=== PATIENT | female | born 1960 | race African-American/Black ===

== ENCOUNTER 2022-07-21 11:31 | Outpatient (CLI) | payer OTHER, SELFPAY ==
[2022-07-21 11:58] LABS: Hematocrit 33.3 % (37.0-47.0); Hemoglobin 9.9 g/dL (12.0-15.0); Mean Corpuscular HGB Conc 29.7 g/dl (32-36); Mean Corpuscular Hemoglobin 21.8 pg (26-34); Mean Corpuscular Volume 73.2 fl (80-100); Mean Platelet Volume 10.8 fl (7.4-10.4); Platelet Count Result 294 k/mm3 (150-375); Red Blood Count 4.55 M/mm3 (4.2-5.4); Red Cell Distribution Width 14.6 % (11.5-14.5); White Blood Count 8.5 K/mm3 (4.5-10.0)
[2022-07-21 12:08] LABS: Alanine Aminotransferase 16 U/L (6-35); Albumin Level 4.4 g/dL (3.5-5.1); Alkaline Phosphatase 90 U/L (38-126); Anion Gap 7 mmol/L (8-16); Aspartate Amino Transferase 20 U/L (14-36); Bilirubin,Total 0.6 mg/dL (0.2-1.3); Blood Urea Nitrogen 20 mg/dL (7-17); Calcium 9.1 mg/dL (8.4-10.2); Carbon Dioxide 31 mmol/L (22-30); Chloride 101 mmol/L (98-107); Cholesterol 149 mg/dL (0-200); Estimated Glomerular Filt Rate 51; Glucose 92 mg/dL (65-110); HDL Direct 26 mg/dL; Potassium 3.7 mmol/L (3.4-5.0); Sodium 139 mmol/L (137-145); Triglycerides 86 mg/dL (<150)
[2022-07-21 12:19] LABS: LDL Cholesterol Direct 85 mg/dL
== END 2022-07-21 11:32 | disposition home or self-care (01) ==
DX: Z00.00 Encounter for general adult medical examination without abnormal findings (principal); I10 Essential (primary) hypertension
CPT/HCPCS: 36415; 80053; 80061; 85027

== ENCOUNTER 2022-11-25 14:45 | Outpatient (RCR) | payer OTHER, SELFPAY ==
--- NOTE | 2022-11-12 16:50 | OPREHPOC ---
Outpatient Therapy Plan of Care This is a Multidisciplinary Plan of Care that may contain components documented by all disciplines (PT, OT, and ST.) PT Problem 1 PT Problem #1 Knowledge Deficit PT Goal 1 Goal Independent with HEP Target Visit 3 PT Problem 2 PT Problem #2 Pain PT Goal 1 Goal Pain at worst 1/10 Target Visit 3 PT Problem 3 PT Problem #3 Impaired Strength PT Goal 1 Goal DUNCAN hips 5/5 Target Visit 3
--- NOTE | 2022-11-12 16:50 | PTOPEVAL1 ---
Assessment and note entered by Jonathan Busch, PT Evaluation Information Assessment Status Evaluation Diagnosis Pain in L knee Onset September 2022 Subjective Information Patient reports she was at a alliance party in September and started having issues bending the knee and unable to get out of the chair without help. was unable to bend her knee to get into her car. She saw Dr. Sung and received an injection. Knee is feeling a lot better now and she has started riding a bike again to stay more active. Reported Pain Level Pain Score 2: Self Report Assessment PT Clinical Summary Sarah is a 62 year old female coming into the clinic with a diagnosis of L knee pain. The pain and range of motion have improved with injections from the ortho doctor. Patient still has some slight weakness, Was given a HEP and will have her come back in a couple weeks to see how she is feeling. Hopefully discharged after. Plan of Care Interventions Electrical Stimulation,Gait Training,Hot Pack/Cold Pack,Manual Therapy,Neuro Re-education,Patient/ Caregiver Education,Therapeutic Activities, Therapeutic Exercise,Ultrasound Other Interventions cupping, taping, IASTM PT Services Indicated Yes Treatment Frequency and 0-1x/wk for 4 weeks Duration These treatments will address the objective and functional deficits as defined above. The patient will be advanced safely and appropriately in order for the patient to progress towards his/her prior level of function. Additional exercises will be introduced and as well as a comprehensive home exercise program upon discharge, if needed, ?to ensure carryover of functional gains achieved in the clinic. This treatment plan has been reviewed and agreement upon by the patient.
--- NOTE | 2022-11-25 15:23 | PTOPDC ---
Assessment and note entered by Jonathan Busch, PT Evaluation Information Assessment Status Discharge Diagnosis Pain in L knee Onset September 2022 Subjective Information Patient reports the knee still feels good after the injection. It is a little upset, but she also built a deck this last weekend. She has been doing her exercises and riding her bike without any incidents. Reported Pain Level Pain Score 3: Self Report Additional Pain Score Comments was no pain, but a little tenders after going up and down the stairs on the deck a bunch and crawling under the deck to shore up the support. Assessment PT Clinical Summary Sarah is a 62 year old female coming into the clinic with a diagnosis of L knee pain. She has met her strength goals and reports the knees pain is under better control and tolerable. Patient okay for discharged from physical therapy. Plan of Care PT Services Indicated No
== END 2022-11-26 08:31 | disposition home or self-care (01) ==
LOC: ANHPT 14:45
PROVIDERS: Visit Provider Orthopaedic Surgery
DX: M25.562 Pain in left knee (principal); G89.29 Other chronic pain
CPT/HCPCS: 97110; 97161

== ENCOUNTER 2023-06-10 14:37 | Outpatient (CLI) | payer OTHER, SELFPAY ==
[2023-06-10 15:23] LABS: Basophils Percent Auto 0.4 % (0.2-1.2); Eosinophils Absolute Auto 0.4 K/mm3 (0-0.3); Eosinophils Percent Auto 4.7 % (0-4.4); Hematocrit 35.7 % (37.0-47.0); Hemoglobin 10.4 g/dL (12.0-15.0); Immature Granulocyte Absolute 0.03 K/mm3 (0.00-0.031); Immature Granulocyte Percent A 0.4 % (0-0.5); Lymphocytes Absolute Auto 1.95 K/mm3 (0.9-3.2); Lymphocytes Percent Auto 23.4 % (18.3-44.2); Mean Corpuscular HGB Conc 29.1 g/dl (32-36); Mean Corpuscular Hemoglobin 21.6 pg (26-34); Mean Corpuscular Volume 74.2 fl (80-100); Mean Platelet Volume 10.5 fl (7.4-10.4); Monocytes Absolute Auto 0.6 K/mm3 (0.1-0.6); Monocytes Percent Auto 7.3 % (2.6-8.5); Neutrophils Absolute Auto 5.3 K/mm3 (1.3-6.7); Neutrophils Percent Auto 63.8 % (45.5-73.1); Platelet Count Result 255 k/mm3 (150-375); Red Blood Count 4.81 M/mm3 (4.2-5.4); Red Cell Distribution Width 14.6 % (11.5-14.5); White Blood Count 8.3 K/mm3 (4.5-10.0)
[2023-06-10 15:32] LABS: Anion Gap 7 mmol/L (8-16); Blood Urea Nitrogen 18 mg/dL (7-17); Calcium 9.3 mg/dL (8.4-10.2); Carbon Dioxide 32 mmol/L (22-30); Chloride 102 mmol/L (98-107); Estimated Glomerular Filt Rate > 60; Glucose 101 mg/dL (65-110); Potassium 3.5 mmol/L (3.4-5.0); Sodium 141 mmol/L (137-145)
[2023-06-10 16:17] LABS: Hypochromasia 1+ (NORMAL); Platelet Estimate Adequate (Adequate); Schistocytes None Seen (NORMAL)
[2023-06-10 16:18] LABS: Anisocytosis 1+ (NORMAL)
[2023-06-10 20:02] LABS: Iron 39 ug/dL (37-170)
[2023-06-10 20:11] LABS: Percent Iron Saturation 14 % (20-50)
== END 2023-06-10 14:38 | disposition home or self-care (01) ==
LOC: ANHLAB 14:45
DX: N95.0 Postmenopausal bleeding (principal); R60.0 Localized edema; I10 Essential (primary) hypertension; R94.31 Abnormal electrocardiogram [ECG] [EKG]; Z82.49 Family history of ischemic heart disease and other diseases of the circulatory system
CPT/HCPCS: 36415; 80048; 83540; 83550; 85025

== ENCOUNTER 2025-03-13 15:36 | Outpatient (CLI) | payer OTHER, SELFPAY ==
[2025-03-13 16:54] LABS: Alanine Aminotransferase 15 U/L (6-35); Albumin Level 4.3 g/dL (3.5-5.1); Alkaline Phosphatase 78 U/L (38-126); Anion Gap 8 mmol/L (4-12); Aspartate Amino Transferase 33 U/L (14-36); Bilirubin,Total 0.8 mg/dL (0.2-1.3); Blood Urea Nitrogen 25 mg/dL (7-17); Calcium 9.3 mg/dL (8.4-10.2); Carbon Dioxide 30 mmol/L (22-30); Chloride 99 mmol/L (98-107); Cholesterol 161 mg/dL (0-200); Estimated Glomerular Filt Rate 47; Glucose 101 mg/dL (65-110); HDL Direct 28 mg/dL; Potassium 3.6 mmol/L (3.4-5.0); Sodium 137 mmol/L (137-145); Total Protein 8.3 g/dL (6.3-8.2); Triglycerides 183 mg/dL (<150)
== END 2025-03-13 15:37 | disposition home or self-care (01) ==
PROVIDERS: PCP Family Medicine
DX: R07.2 Precordial pain (principal); I10 Essential (primary) hypertension
CPT/HCPCS: 36415; 80053; 80061

== ENCOUNTER 2025-03-14 15:09 | Outpatient (CLI) | payer OTHER, SELFPAY ==
--- NOTE | ~2025-03-14 | US_ITS ---
EXAMINATION: US pelvic complete w TV DATE: 03/14/2025 15:49 INDICATION: Postmenopausal bleeding. TECHNIQUE: Multiple transabdominal and transvaginal sonographic images of the pelvis were obtained. COMPARISON: None. FINDINGS: TRANSABDOMINAL ULTRASOUND: The uterus measures 12.2 x 7.9 x 9.7 cm. There is no free fluid in the pelvis. TRANSVAGINAL ULTRASOUND: The endometrial complex is not identified. There is a 3.5 cm subserosal fibroid. There is a 5.8 cm submucosal fibroid. There is a 4.6 cm subserosal fibroid. The right ovary measures 2.7 x 1.0 x 2.6 cm. The left ovary is not visualized. IMPRESSION: 1. Uterine fibroids. 2. Endometrial complex not visualized. Reviewed, dictated and finalized at location E.
== END 2025-03-14 15:10 | disposition home or self-care (01) ==
PROVIDERS: PCP Internal Medicine; Visit Provider Nurse Practitioner Obstetrics & Gynecology
DX: D25.2 Subserosal leiomyoma of uterus (principal); N85.01 Benign endometrial hyperplasia; N95.0 Postmenopausal bleeding
CPT/HCPCS: 76830; 76856

== ENCOUNTER 2025-03-20 10:35 | Outpatient (CLI) | payer OTHER, SELFPAY ==
--- NOTE | 2025-03-20 | ECHO_ITS ---
Patient Info Name: Sarah Calvillo Age: 64 years : 1960 Gender: Female Ht: 62 in Wt: 190 lbs BSA: 1.98 m2 HR: 83 bpm BP: 154 / 103 mmHg Technical Quality: Good Exam Date: 03/20/2025 11:05 AM Patient Status: O Admit Date: 03/20/2025 Exam Type: CA echo doppler color flow Complete two-dimensional, color flow and Doppler transthoracic echocardiogram is performed. 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 Complete two-dimensional, color flow and Doppler transthoracic echocardiogram is performed. 2. Left ventricular systolic function is normal, estimated at 60-65. 3. There is moderately increased left ventricular wall thickness. 4. The left ventricular diastolic function is normal. 5. There is mild pulmonic regurgitation. Left Ventricle Left ventricular chamber dimension is normal. Left ventricular systolic function is normal, estimated at 60-65. There is moderately increased left ventricular wall thickness. Left ventricular septal wall motion is normal. The left ventricular diastolic function is normal. Right Ventricle Right ventricular chamber dimension is normal. Right ventricular systolic function is normal. Left Atria Left atrial chamber dimension is normal. Right Atria Right atrial chamber dimension is normal. Aortic Valve The aortic valve is trileaflet. There is no aortic valve sclerosis. There is no aortic valve stenosis. There is no aortic valve regurgitation. Pulmonic Valve The pulmonic valve is normal. There is no pulmonic valve stenosis. There is mild pulmonic regurgitation. Mitral Valve The mitral valve has normal leaflets. There is no mitral valve stenosis. There is no mitral valve regurgitation. Tricuspid Valve The tricuspid valve leaflets are normal. There is no significant tricuspid valve stenosis. There is no tricuspid valve regurgitation. Pericardium/Pleural The pericardium appears normal. There is trivial pericardial effusion. Inferior Vena Cava Normal inferior vena cava with >50% collapse upon inspiration consistent with normal right atrial pressure, 5 mmHg. Aorta The aortic root size at the sinus of Valsalva is mildly dilated. The prox ascending aorta size is normal. Left Ventricular Outflow Tract Name Value Normal LVOT 2D LVOT Diameter 2.2 cm LVOT Doppler LVOT Peak Velocity 123 cm/s LVOT Peak Gradient 6 mmHg LVOT Mean Gradient 3 mmHg LVOT VTI 22 cm LVOT VTI/AV VTI Ratio 0.8 LVOT Stroke Volume 80 ml LVOT CO 5.8 l/min LVOT CI 2.9 l/min/m2 Pulmonic Valve Name Value Normal PV Doppler PV Peak Velocity 112 cm/s PV Peak Gradient 5 mmHg PV Mean Gradient 2 mmHg PV Regurgitation Doppler CT Peak End Diastolic Velocity 120 cm/s Mitral Valve Name Value Normal MV Doppler MV Peak Gradient 3 mmHg MV Mean Gradient 1 mmHg MV Area (Cont Eq VTI) 4.5 cm2 MV Diastolic Function MV E Peak Velocity 66 cm/s MV A Peak Velocity 72 cm/s MV E/A 0.9 MV Decel Time (PW) 197 ms MV Annular TDI MV E/e' (Septal) 10.9 MV E/e' (Lateral) 5.1 MV E/e' (Average) 8.0 Tricuspid Valve Name Value Normal Estimated PAP/RSVP RA Pressure 5 mmHg <=5 TV Annular TDI TV Lateral Hannah s' Velocity 13.3 cm/s >=9.5 Aortic Valve Name Value Normal AV Doppler AV Peak Velocity 135 cm/s AV Peak Gradient 7 mmHg AV Mean Gradient 4 mmHg AV VTI 26 cm AV Area (Cont Eq VTI) 3.1 cm2 >=3.0 AV Area (Cont Eq Douglas) 3.3 cm2 AV DI (Douglas) 0.91 AV Regurgitation 2D LVOT Area 3.7 cm2 Ventricles Name Value Normal LV Dimensions 2D/MM IVS Diastolic Thickness (2D) 1.0 cm 0.6-1.0 LVID Diastole (2D) 5.0 cm 3.8-5.2 LVIW Diastolic Thickness (2D) 0.9 cm 0.6-0.9 LVID Systole (2D) 3.6 cm 2.2-3.5 LVOT Diameter 2.2 cm LV Mass (2D Cubed) 163.35 g 67.00-162.00 LV Mass Index (2D Cubed) 82 g/m2 43-95 Relative Wall Thickness (2D) 0.34 <=0.42 LV Fractional Shortening/Ejection Fraction 2D/MM LV Fractional Shortening (2D) 28 % 27-45 LV EF (2D Teichholz) 54 % LV Diastolic Volume (4C MOD) 66 ml LV EF (4C MOD) 57 % LV Diastolic Volume (2C MOD) 68 ml LV EF (2C MOD) 62 % LV Diastolic Volume (BP MOD) 67 ml 46-106 LV Diastolic Volume Index (BP MOD) 34 ml/m2 29-61 LV Systolic Volume (BP MOD) 27 ml 14-42 LV Systolic Volume Index (BP MOD) 14 ml/m2 8-24 LV EF (BP MOD) 60 % 54-74 LV Diastolic Length (4C) 7.4 cm LV Systolic Length (4C) 6.4 cm LV Stroke Volume (4C MOD) 37 ml Atria Name Value Normal LA Dimensions LA Volume (4C A-L) 46 ml LA Volume (BP A-L) 52 ml RA Dimensions RA Systolic Major [place] Length (4C) 5.6 cm 2.2-2.8 RA Area (4C) 15.0 cm2 <=18.0 Report Signatures
--- OUTSIDE RECORDS SUMMARY | 2025-03-20 12:21 | XMS_ITS | Patient Health Record ---
Author Organization [facility] Address [address] [place], [place] [id number] Care Team Providers Care Supervisor Order Takers Name Role Phone ALETA CLINTON Unavailable [phone] Javon Rivera Unavailable Unavailable Reason For Referral No Information Plan Of Treatment No Information Insurance Providers Payer Name Payer Address Payer Phone Subscriber Number Group Number Insured Name Patient Relationship to Insured Coverage Start Date Coverage End Date [employer] [address] [place] [phone] [id number] CHASITY [id number] Self - patient is the insured
== END 2025-03-20 10:36 | disposition home or self-care (01) ==
LOC: ANHCARD 10:36
PROVIDERS: PCP Internal Medicine
DX: I37.1 Nonrheumatic pulmonary valve insufficiency (principal); I10 Essential (primary) hypertension; R60.9 Edema, unspecified
CPT/HCPCS: 93306

== ENCOUNTER 2025-03-28 01:29 | Day surgery (SDC) | payer OTHER, SELFPAY ==
--- NOTE | 2025-03-23 09:14 | SUR.PREOP ---
[facility] has started construction of its new state of the art ER which will open Spring 2026. With this, we anticipate parking may be a challenge for some our surgical patients and families. Parking spaces are limited but are available for all Surgical, obstetrics, and ER patients sharing this lot. If you arrive and find you are having a hard time finding a parking space, please note that we understand the challenges, please drive around the hospital and park near Hospital Entrance 1. When you enter this entrance, you can ask a volunteer to direct or take you back to the surgical waiting area to check in. We appreciate everyone?s understanding of these expected challenges while we build for your future. Report to the Outpatient Waiting Room, entrance under the green pavilion located off [address], at time _1030AM__ on date _03/28/25__. Planned Procedure Time: 1230PM__.? Time changes happen often and if your time is changed the preop area will call you the afternoon before. - You and your visitor will be asked to self-screen and do not enter if you have any COVID symptoms. Please call surgeon if you need to reschedule. - A mask is optional within the hospital at this time. Patients may have clear liquids (water, carbonated beverages, clear teas, apple juice) until 3 hours prior to surgery with a maximum of 20 ounces. - No food from midnight until time of surgery and no smoking, or chewing tobacco (or any form of nicotine). No chewing gum, candy or mints. Take only the following medications with a SIP of water on the morning of surgery: _None DO NOT STOP ANY OF YOUR OTHER PRESCRIPTION MEDICATIONS PRIOR TO SURGERY EXCEPT THE FOLLOWING Hold all vitamins and supplements for 3 days per anesthesiologist. Medications to discontinue per physician __Pt is to call the provider for directions on diclofenac potassium__ Date to take last dose of Multivitamin___03/24/25 Please no make-up, nail bahraini, hairspray, perfume, deodorant, or body powder the day of surgery.? No jewelry (including any body piercings) or valuables the day of surgery, leave them at home.? Please take a shower or bath the night before, or the morning of, surgery with an antibacterial soap.? Wear comfortable, loose fitting clothing.? - Jewelry must be removed prior to entering the operating room.? Rings and piercings that are not removed may be cut off. - The hospital will not accept responsibility for valuables.? - Please leave all valuables, including medications, at home the day of surgery. If you are going home after surgery, a licensed van driver must drive you home.? - NO public transportation without another adult if you receive anesthesia. - We recommend that an adult stay with you for 24 hours following discharge. - We also recommend that you do not drive, make important decision, drink alcoholic beverages, or take any drugs that were not prescribed by your health care provider for at least 24 hours after your discharge time. Follow any additional instructions given to you from your surgeon. Telephone instructions given to __Sarah___and asked if any additional questions and then verbalized understanding. Patient advised to call surgeon office or pre surgery nurse liaison [phone] if any additional questions.
[2025-03-23 09:20] VITALS: BMI 34.7
--- OUTSIDE RECORDS SUMMARY | 2025-03-28 01:34 | XMS_ITS | Data Portability ---
Author Organization [facility] [employer] Address [address] [address] Care Team Providers Care Driver/Sales Workers Name Role Phone [facility] (CARDIOLOGY) Cardio logist Assessment Encounter Date Assessment Date Assessment LastModified by Organization Details LastModified Time 02/28/2024 02/28/2024 Recommends healthy nutrition, including a diet rich in fruits and vegetables, minimizing simple carbohydrates, salt, and saturated fats. Encouraged regular cardiovascular exercise such as walking at least 30 minutes daily, 5 times per week. Not available 02/28/2024 16:20:31 01/11/2025 01/11/2025 Recommends healthy nutrition, including a diet rich in fruits and vegetables, minimizing simple carbohydrates, salt, and saturated fats. Encouraged regular cardiovascular exercise such as walking at least 30 minutes daily, 5 times per week. Not available 01/11/2025 16:55:17 Plan of Treatment Reminders Order Date Submit Date Provider Last Modified By Organization Details Last Modified Time Details Appointments ESTABLISH ED PATIENT 15 2024 02:15P Meek Nava MD Not available Not available Not available Lab FSH (follicle -stimulat ing hormone), serum 2024 025 [facility], [address] [place], [address], 01/15/2025 13:15:15 PTH (parathyr oid hormone), intact, serum or plasma 2024 025 [facility], [address] [place] [address], [address], 01/15/2025 13:21:15 phosphoru s, serum or plasma 2024 025 [facility], [address] [place] [address], [address], 01/15/2025 13:25:21 vitamin D, 25-hydrox y, total, serum 2024 025 [facility], [address] [place] [address], [address], 01/15/2025 13:21:16 retic count, blood 2024 025 [facility], [address] [place] [address], [address], 01/15/2025 13:23:32 iron + TIBC + ferritin, serum 2024 025 [facility], [address] [place] [address], [address], 01/15/2025 19:22:22 fecal occult blood, immunoass ay, stool 2024 025 [facility], [address] [place] [address], [address], 01/11/2025 17:12:09 CBC w/ auto diff 2024 025 [facility], [address] [place] [address], [address], 01/15/2025 13:42:47 TSH + free T4, serum [address] Outpatient Lab, [address] [place], [address], 01/15/2025 19:22:22 T3, free, serum or plasma 2024 025 [facility], [address] [place], [address], 01/15/2025 18:07:24 microalbu min/creat inine, mass ratio, urine [address] Outpatient Lab, [address] [place], [address], 01/15/2025 19:22:21 retic count, blood 2023 024 [facility] (Lab), [address] [facility], [place], [address], 03/11/2024 07:37:51 iron + TIBC + ferritin, serum 2023 024 [facility] (Lab), [address] [facility], [place], [address], 03/11/2024 07:37:50 fecal occult blood, immunoass ay, stool 2023 024 [facility] (Lab), [address] [facility], [place], [address], 02/28/2024 16:34:05 CBC w/ auto diff 2023 024 [facility] (Lab), [address] [facility], [place], [address], 02/15/2024 14:21:42 vitamin B12 + folate, serum or blood 2023 [facility] (Lab), [address], [place], [address], 02/15/2024 14:21:43 microalbu min/creat inine, mass ratio, urine 2023 [facility] (Lab), [address], [place], [address], 02/15/2024 14:21:39 HIV 1 + 2, meaningfu l use set 2023 [facility] (Lab), [address], [place], [address], 02/01/2024 11:04:21 CMP, serum or plasma 2023 024 [facility] (Lab), [address], [place], [address], 02/15/2024 14:21:41 TSH + free T4, serum 2023 024 [facility] (Lab), [address], [place], [address], 02/01/2024 11:05:45 T3, free, serum or plasma 2023 024 [facility] (Lab), [address], [place], [address], 02/15/2024 14:21:44 hepatitis C virus Ab, serum 2023 024 [facility] (Lab), [address], [place], [address], 02/15/2024 14:21:43 Referral gynecolog ist referral 2024 025 reji Gaitan MD, [address] [facility], [place], [address], 02/08/2025 08:08:52 gynecolog ist referral 2023 024 reji Gaitan MD, [address] [facility], [place], [address], 02/28/2024 16:33:54 gynecolog ist referral 2023 024 reji Gaitan MD, [address] [facility], [place], [address], 02/28/2024 08:27:08 Procedures None recorded. Surgeries None recorded. Imaging XR, hip, unilatera l, 2 or 3 view 2024 025 [email or web address] [facility] Central Scheduling, [address] [facility] [address], [place], [address], 01/22/2025 08:11:05 MAMMO, screening , digital, bilateral [address] [facility] Central Scheduling, [address] [facility], [place], [address], 03/06/2024 08:11:18 MAMMO, screening , digital, bilateral [address] [facility] Central Scheduling, [address] [facility] [address], [place], [address], 02/08/2024 13:09:17 bone density 2023 024 [email or web address] [facility] Central Scheduling, [address] [facility], [place], [address], 02/14/2024 14:04:48 MAMMO, screening , digital, bilateral 2023 024 [facility], [address] [facility], [place], [address], 02/15/2024 18:27:05 Medication Orders None recorded. Patient TargetsNo targets recorded. Patient Instructions Encounter Date Encounter Id Patient Instructions Last Modified By Organization Details Last Modified Time 01/31/2024 [id number] advised to lose weight Not available 01/31/2024 15:58:19 02/28/2024 [id number] advised to lose weight Not available 02/28/2024 16:32:32 01/11/2025 [id number] advised to lose weight Not available 01/11/2025 17:10:45 Reason for Referral [employer] Referral for Gy necologic examination Referring Physician: Javier Nava, Internal Medicine, Encounter Date: 01/31/2024 [employer] Referral for Gy necologic examination Referring Physician: Javier Nava, Internal Medicine, Encounter Date: 02/28/2024 [employer] Referral for Ab normal vaginal bleeding Referring Physician: Javier Nava Internal Medicine, Encounter Date: 01/11/2025 Results Created Date Observation Date Name Description Value Unit Range Abnormal Flag Note LastModifiedBy Organization Detail LastModifiedTime 12/31/1912/31/2023 Lipid 1996 panel - Serum or Plasm a cholesterol [mass/volume ] in serum or plasma 140 text: <200 mg/dL Not Available Not Available 12/28/2024 22:08:41 12/31/1912/31/2023 Lipid 1996 panel - Serum or Plasm a triglyceride [mass/volume ] in serum or plasma 55 text: <150 mg/dL Not Available Not Available 12/28/2024 22:08:41 12/31/19 24 12/31/2023 Lipid 1996 panel - Serum or Plasm a cholesterol in HDL [mass/volume ] in serum or plasma 35 text: >40.0 mg/dL low Not Available Not Available 12/28/2024 22:08:41 12/31/19 24 12/31/2023 Lipid 1996 panel - Serum or Plasm a cholesterol in LDL [mass/volume ] in serum or plasma by calculation 94 text: <100 mg/dL Not Available Not Available 12/28/2024 22:08:41 12/31/19 24 12/31/2023 Lipid 1996 panel - Serum or Plasm a cholesterol non HDL [mass/volume ] in serum or plasma 105 text: <130 mg/dL Not Available Not Available 12/28/2024 22:08:41 12/31/19 24 12/31/2023 Lipid 1996 panel - Serum or Plasm a cholesterol. total/choles terol in HDL [mass ratio] in serum or plasma 4 low: 0high: 4.5 Not Available Not Available 12/28/2024 22:08:41 12/31/19 24 12/31/2023 Lipid 1995 panel - Serum or Plasm a cholesterol in VLDL [mass/volume ] in serum or plasma by calculation 11 text: 5 - 55 mg/dL Not Available Not Available 12/28/2024 22:08:41 12/31/19 24 12/31/2023 Lipid 1996 panel - Serum or Plasm a service comment [facility] NURYS NSUS REPOR T RECOM MENDA TIONS : ADULT CHILD LOW RISK: ADELSO STERO L <200 <170 TRIGL YCERI DE <150 --- HDL >=60 --- LDL <100 <110 BORDE RLINE : ADELSO STERO L 200-2 39 170-1 99 TRIGL YCERI DE 150-1 99 --- HDL 40-59 --- LDL 100-1 59 110-1 29 HIGH RISK: ADELSO STERO L >=240 >=200 TRIGL YCERI DE >=200 --- HDL <40 --- LDL >=160 >=130 Not Available Not Available 12/28/2024 22:08:41 12/31/19 24 12/31/2023 Lipid 1996 panel - Serum or Plasm a interpretati on and review of laboratory results ABNORM AL Not Available Not Available 22:08:41 02/14/20 24 02/15/2024 ALBUM IN, RANDO M URINE W/CRE ATINI NE creatinine, random urine 235 mg/dL 20-275 normal Not Available [facility] [address] , [place], [address], 02/15/2024 14:21:39 02/14/20 24 02/15/2024 ALBUM IN, RANDO M URINE W/CRE ATINI NE albumin, urine 3.4 mg/dL see note: normal Refer ence Range : Refer ence Range Not estab lishe d Not Available [facility] [address] [address] [place], [address], 02/15/2024 14:21:39 02/14/20 24 02/15/2024 ALBUM IN, RANDO M URINE W/CRE ATINI NE albumin/crea tinine ratio, random urine 14 mg/g_ creat <30 normal The ADA defin es abnor malit ies in album in excre tion as follo ws: Album inuri a Categ ory Resul t (mg/g creat inine ) Ada l to Mildl y incre ased <30 Moder ately incre ased 30-29 9 Sever bharathi incre ased > OR = 300 The ADA recom mends that at least two of three speci mens colle cted withi n a 3-6 month perio d be abnor mal befor e consi marcella g a patie nt to be withi n a diagn ostic categ ory. Not Available [facility] [address] [address] [place], [address], 02/15/2024 14:21:39 02/14/20 24 02/15/2024 HIV 1/2 ANTIG EN/AN TIBOD Y,FOU RTH GENER ATION W/RFL HIV Ag/Ab, 4TH gen NON-RE ACTIVE non-re active normal HIV-1 antig en and HIV-1 /HIV- 2 antib odies were not detec marianna. There is no labor atory evide nce of HIV infec tion. PLEAS E NOTE: This infor kyle amador has been discl osed to you from recor ds whose confi denti ality may be prote cted by state law. If your state requi res such prote ction , then the state law prohi bits you from euncie valencia any furth er discl osure of the infor kyle n witho ut the speci fic writt en conse nt of the perso n to whom it perta ins, or as other mckeon permi tted by law. A gener al autho rijesust ion for the relea se of medic al or other infor matio n is NOT suffi cient for this purpo se. For addit ional infor matio n pleas e refer to http: //[facility] cat n.que stdia gnost ics.c om/fa q/FAQ 106 (This link is being provi ded for infor matio nal/ educa miguel l purpo ses only. ) The perfo rmanc e of this assay has not been clini bess valid ated in patie nts less than 2 years old. Not Available [address], [address], 02/15/2024 14:21:40 02/14/20 24 02/15/2024 COMPR EHENS TAWANNA METAB OLIC PANEL glucose 89 mg/dL 65-99 normal Fasti ng refer ence inter seb Not Available [address], [address], 02/15/2024 14:21:41 02/14/20 24 02/15/2024 COMPR EHENS TAWANNA METAB OLIC PANEL urea nitrogen (BUN) 20 mg/dL 7-25 normal Not Available [address], [address], 02/15/2024 14:21:41 02/14/20 24 02/15/2024 COMPR EHENS TAWANNA METAB OLIC PANEL creatinine 0.86 mg/dL 0.50-1 .05 normal Not Available [email or web address] [address], [address], 02/15/2024 14:21:41 02/14/20 24 02/15/2024 COMPR EHENS TAWANNA METAB OLIC PANEL eGFR 76 mL/mi n/1.7 3m2 > or = 60 normal Not Available [email or web address] [address], [address], 02/15/2024 14:21:41 02/14/20 24 02/15/2024 COMPR EHENS TAWANNA METAB OLIC PANEL BUN/creatini ne ratio SEE NOTE: (calc ) 6-22 Not Repor marianna: BUN and Creat inine are withi n refer ence range . Not Available [address], [address], 02/15/2024 14:21:41 02/14/20 24 02/15/2024 COMPR EHENS TAWANNA METAB OLIC PANEL sodium 141 mmol/ L 135-14 6 normal Not Available [address], [address], 02/15/2024 14:21:41 02/14/20 24 02/15/2024 COMPR EHENS TAWANNA METAB OLIC PANEL potassium 3.9 mmol/ L 3.5-5. 3 normal Not Available [address], [address], 02/15/2024 14:21:41 02/14/20 24 02/15/2024 COMPR EHENS TAWANNA METAB OLIC PANEL chloride 102 mmol/ L 98-110 normal Not Available [address], [address], 02/15/2024 14:21:41 02/14/20 24 02/15/2024 COMPR EHENS TAWANNA METAB OLIC PANEL carbon dioxide 31 mmol/ L 20-32 normal Not Available [address], [address], 02/15/2024 14:21:41 02/14/20 24 02/15/2024 COMPR EHENS TAWANNA METAB OLIC PANEL calcium 9.8 mg/dL 8.6-10 .4 normal Not Available [address], [address], 02/15/2024 14:21:41 02/14/20 24 02/15/2024 COMPR EHENS TAWANNA METAB OLIC PANEL protein, total 7.6 g/dL 6.1-8. 1 normal Not Available [address], [address], 02/15/2024 14:21:41 02/14/20 24 02/15/2024 COMPR EHENS TAWANNA METAB OLIC PANEL albumin 4.6 g/dL 3.6-5. 1 normal Not Available [address], [address], 02/15/2024 14:21:41 02/14/20 24 02/15/2024 COMPR EHENS TAWANNA METAB OLIC PANEL globulin 3.0 g/dL_ (calc ) 1.9-3. 7 normal Not Available [address], [address], 02/15/2024 14:21:41 02/14/20 24 02/15/2024 COMPR EHENS TAWANNA METAB OLIC PANEL albumin/glob ulin ratio 1.5 (calc ) 1.0-2. 5 normal Not Available [address], [address], 02/15/2024 14:21:41 02/14/20 24 02/15/2024 COMPR EHENS TAWANNA METAB OLIC PANEL bilirubin, total 1.1 mg/dL 0.2-1. 2 normal Not Available [address], [address], 02/15/2024 14:21:41 02/14/20 24 02/15/2024 COMPR EHENS TAWANNA METAB OLIC PANEL alkaline phosphatase 81 U/L 37-153 normal Not Available [address], [address], 02/15/2024 14:21:41 02/14/20 24 02/15/2024 COMPR EHENS TAWANNA METAB OLIC PANEL AST 11 U/L 10-35 normal Not Available [address], [address], 02/15/2024 14:21:41 02/14/20 24 02/15/2024 COMPR EHENS TAWANNA METAB OLIC PANEL ALT 11 U/L 6-29 normal Not Available [address], [address], 02/15/2024 14:21:41 02/14/20 24 02/15/2024 CBC (INCL UDES DIFF/ PLT) white blood cell count 8.1 thous and/u L 3.8-10 .8 normal Not Available [facility] [address], [address], 02/15/2024 14:21:42 02/14/20 24 02/15/2024 CBC (INCL UDES DIFF/ PLT) red blood cell count 5.15 rina on/uL 3.80-5 .10 high Not Available [address], [address], 02/15/2024 14:21:42 02/14/20 24 02/15/2024 CBC (INCL UDES DIFF/ PLT) hemoglobin 11.5 g/dL 11.7-1 5.5 low Not Available [address], [address], 02/15/2024 14:21:42 02/14/2002/15/2024 CBC (INCL UDES DIFF/ PLT) hematocrit 39.1 % 35.0-4 5.0 normal Not Available [address], [address], 02/15/2024 14:21:42 02/14/20 24 02/15/2024 CBC (INCL UDES DIFF/ PLT) MCV 75.9 fL 80.0-1 00.0 low Not Available [address], [address], 02/15/2024 14:21:42 02/14/20 24 02/15/2024 CBC (INCL UDES DIFF/ PLT) MCH 22.3 pg 27.0-3 3.0 low Not Available [address], [address], 02/15/2024 14:21:42 02/14/20 24 02/15/2024 CBC (INCL UDES DIFF/ PLT) MCHC 29.4 g/dL 32.0-3 6.0 low Not Available [address], [address], 02/15/2024 14:21:42 02/14/2002/15/2024 CBC (INCL UDES DIFF/ PLT) RDW 13.2 % 11.0-1 5.0 normal Not Available [address], [address], 02/15/2024 14:21:42 02/14/20 24 02/15/2024 CBC (INCL UDES DIFF/ PLT) platelet count 290 thous and/u L 140-40 0 normal Not Available [address], [address], 02/15/2024 14:21:42 02/14/20 24 02/15/2024 CBC (INCL UDES DIFF/ PLT) MPV 11.9 fL 7.5-12 .5 normal Not Available [address], [address], 02/15/2024 14:21:42 02/14/20 24 02/15/2024 CBC (INCL UDES DIFF/ PLT) absolute neutrophils 5443 cells /uL 1500-7 800 normal Not Available [address], [address], 02/15/2024 14:21:42 02/14/20 24 02/15/2024 CBC (INCL UDES DIFF/ PLT) absolute lymphocytes 1814 cells /uL 850-39 00 normal Not Available [address], [address], 02/15/2024 14:21:42 02/14/20 24 02/15/2024 CBC (INCL UDES DIFF/ PLT) absolute monocytes 413 cells /uL 200-95 0 normal Not Available [address], [address], 02/15/2024 14:21:42 02/14/20 24 02/15/2024 CBC (INCL UDES DIFF/ PLT) absolute eosinophils 389 cells /uL 15-500 normal Not Available [address], [address], 02/15/2024 14:21:42 02/14/20 24 02/15/2024 CBC (INCL UDES DIFF/ PLT) absolute basophils 41 cells /uL 0-200 normal Not Available [address], [address], 02/15/2024 14:21:42 02/14/20 24 02/15/2024 CBC (INCL UDES DIFF/ PLT) neutrophils 67.2 % normal Not Available [address], [address], 02/15/2024 14:21:42 02/14/2002/15/2024 CBC (INCL UDES DIFF/ PLT) lymphocytes 22.4 % normal Not Available [address], [address], 02/15/2024 14:21:42 02/14/2002/15/2024 CBC (INCL UDES DIFF/ PLT) monocytes 5.1 % normal Not Available [address], [address], 02/15/2024 14:21:42 02/14/20 24 02/15/2024 CBC (INCL UDES DIFF/ PLT) eosinophils 4.8 % normal Not Available [facility] [place] [address] [place], [address], 02/15/2024 14:21:42 02/14/20 24 02/15/2024 CBC (INCL UDES DIFF/ PLT) basophils 0.5 % normal Not Available [address], [address], 02/15/2024 14:21:42 02/14/20 24 02/15/2024 HEPAT ITIS C AB W/REF L TO HCV RNA, QN, PCR hepatitis C antibody NON-RE ACTIVE non-re active normal HCV antib bertrand was non-r eacti ve. There is no labor atory evide nce of HCV infec tion. In most cases , no furth er actio n is requi red. Howev er, if recen t HCV expos ure is suspe cted, a test for HCV RNA (test code 96232 ) is sugge sted. For addit ional infor kyle castellano e refer to http: //[facility] stdia gnost ics.c om/fa q/FAQ 22v1 (This link is being provi ded for infor kyle bingham/ educrola montelongo purpo ses only. ) Not Available [address] [place], [address], 02/15/2024 14:21:42 02/14/20 24 02/15/2024 VITAM IN B12/F OLATE , SERUM PANEL vitamin B12 405 pg/mL 200-11 00 normal Not Available [facility] [address] [address] [place], [address], 02/15/2024 14:21:43 02/14/20 24 02/15/2024 VITAM IN B12/F OLATE , SERUM PANEL folate, serum 7.8 NG/mL normal Refer ence Range Low: <3.4 Borde rline : 3.4-5 .4 Ada l: >5.4 Not Available [address] [place], [address], 02/15/2024 14:21:43 02/14/20 24 02/15/2024 T3, FREE T3, free 3.1 pg/mL 2.3-4. 2 normal Not Available [facility] [address] [place], [address], 02/15/2024 14:21:44 02/14/2002/15/2024 TSH W/REF MICHEAL TO FT4 TSH w/reflex to FT4 0.95 mIU/L 0.40-4 .50 normal Not Available [facility] [address] , [place], [address], 02/15/2024 14:21:44 02/14/2002/15/2024 Folli tropi n [Unit s/vol ume] in Serum or Plasm a FSH Refer ence Range s are for femal es aged 18 years - Adult Ada l Menst ruati ng Femal e: Folli cular phase : 2.5-1 0.2 mIU/m L Mid-C ycle Peak: 3.4-3 3.4 mIU/m L Lutea l phase : 1.5-9 .1 mIU/m L Pregn ant: <0.3 mIU/m L Post- menop ausal : 23.0- 116.6 mIU/m L Not Available Not Available 12/28/2024 22:08:52 02/16/20 24 02/16/2024 Estra diol (E2) [Mass /volu me] in Serum or Plasm a estradiol (E2) [mass/volume ] in serum or plasma Refer ence Range Folli cular Phase : 19-14 4 Mid-C ycle: 64-35 7 Lutea l Phase : 56-21 4 Postm enopa usal: < or = 31 Refer ence range estab lishe d on post- puber aurora patie nt popul ation . No pre-p ubert al refer ence range estab lishe d using this assay . For any patie nts for whom low Estra diol level s are antic ipate d (e.g. males , pre-p ubert al child kyung and hypog onada l/pos t-men opaus al femal es), the [facility] Estra diol, Ultra sensi tive, LCMSM S assay is recom admaa d (orde r code 26532 ). Ulises e note: patie nts being treat ed with the drug fulve stran t (Fasl odex( R)) have demon strat ed signi fican t inter feren ce in immun oassa y metho ds for estra diol measu remen t. The cross react ivity could lead to false ly eleva marianna estra diol test resul ts leadi ng to an inapp ropri ate clini florecita asses sment of estro gen statu s. [facility] order code 61924 -Estr adiol , Ultra sensi tive LC/MS /MS demon strat es negli gible cross react ivity with fulve stran t. NO COLLE CTION DATE RECEI CHANTEL. WE HAVE USED THE DATE THE SPECI MEN WAS RECEI CHANTEL BY THIS LABOR ATORY THE COLLE CTION DATE. IF THIS IS INCOR RECT, PLEAS E CONTA CT CLIEN T SERVI VERONICA. PHONE NUMBE R: [phone] Not Available Not Available 12/28/2024 22:08:52 03/06/2003/09/2024 Tissu e Patho logy biops y repor t clinical information Postm enopa usal bleed ing Not Available Not Available 12/28/2024 22:08:52 03/06/2003/09/2024 Tissu e Patho logy biops y repor t pathologist name Brook ku M.D., Board Certi fied in Anato danette Patho logy and Clini florecita Patho logy( elect albina millan) Not Available Not Available 12/28/2024 22:08:52 03/06/2003/09/2024 Tissu e Patho logy biops y repor t specimen source identified [employer] alvarado m, biops y Not Available Not Available 12/28/2024 22:08:52 03/06/20 24 03/09/2024 Tissu e Patho logy biops y repor t pathology report gross observation narrative Speci men is recei chantel in 10% neutr al buffe red forma link, label ed with multi ple patie nt ident ifier s and consi sts of multi ple fragm ents of soft tissu e aggre gatin g to 2.5 x 2.5 x 0.3 cm, irreg ular in shape and larson-b rown in color . The speci men is entir bharathi submi tted in one casse tte. Gross exam( s) perfo rmed at: [facility] [place] [place] [address], [place] [id number] Labor atory Direc tor: GENI Ku MD Not Available Not Available 12/28/2024 22:08:52 03/06/2003/09/2024 Tissu e Patho logy biops y repor t pathology report final diagnosis narrative Fragm ented inact tawanna and/o r weakl y proli ferat tawanna endom etriu m with blood . There is no evide nce of malig mio or hyper plasi a ident ified . Not Available Not Available 12/28/2024 22:08:52 03/06/2003/09/2024 Tissu e Patho logy biops y repor t pathology report comments [interpretat ion] narrative Overa ll, scant endom etria l compo nent. Pleas e corre late and follo w clini bess . Not Available Not Available 12/28/2024 22:08:52 03/10/2003/11/2024 IRON, TIBC AND DANETTE TIN PANEL iron, total 71 mcg/d L 45-160 normal Not Available [facility] [address] [place], [address], 03/11/2024 07:37:49 03/10/2003/11/2024 IRON, TIBC AND DANETTE TIN PANEL iron binding capacity 301 mcg/d L_(ca lc) 250-45 0 normal Not Available [facility] [address] [place], [address], 03/11/2024 07:37:49 03/10/20 24 03/11/2024 IRON, TIBC AND DANETTE TIN PANEL % saturation 24 %_(ca lc) 16-45 normal Not Available [address], [address], 03/11/2024 07:37:49 03/10/20 24 03/11/2024 IRON, TIBC AND DANETTE TIN PANEL ferritin 40 NG/mL 16-288 normal Not Available [facility] [address], [address], 03/11/2024 07:37:49 03/10/20 24 03/11/2024 RETIC ULOCY TE COUNT reticulocyte count, automated 1.5 % normal Not Available [address], [address], 03/11/2024 07:37:51 03/10/20 24 03/11/2024 RETIC ULOCY TE COUNT reticulocyte , absolute 45160 cells /uL [address] normal Not Available [facility] [address], [address], 03/11/2024 07:37:51 03/10/20 24 03/13/2024 FECAL GLOBI N BY IMMUN OCHEM ISTRY fecal globin by immunochemis try SEE NOTE FECAL GLOBI N BY IMMUN OCHEM ISTRY Micro Numbe r: [id number] Test Statu s: Final Speci men Sourc e: Insur e (tm) fobt test card Speci men Quali ty: Adequ ate Fecal Globi n: Not Detec marianna Not Available [address], [address], 03/13/2024 15:14:22 01/16/20 25 01/15/2025 MICRO ALB/C REAT RATIO creatinine, urine 101.0 mg/dL 28-217 Not Available [facility] (Lab) [facility], [place], [address], 01/15/2025 13:12:18 01/16/20 25 01/15/2025 MICRO ALB/C REAT RATIO microalbumin , urine 1.3 mg/dL <2.0 Not Available [facility] (Lab) [place], [address], 01/15/2025 13:12:18 01/16/20 25 01/15/2025 MICRO ALB/C REAT RATIO malb/creat ratio 12.6 mg/g <30 Not Available [facility] (Lab) [place], [address], 01/15/2025 13:12:18 01/16/20 25 01/15/2025 DANETTE TIN ferritin 48.1 NG/mL 8.0-38 8.0 Not Available [facility] (Lab) [place], [address], 01/15/2025 13:15:14 01/16/20 25 01/15/2025 FSH FSH 51.4 mIU/m L REFER ENCE RANGE S FOR FEMAL ES: FOLLI CULAR 3.5-1 2.5 MID-C YCLE 4.7-2 1.5 LUTEA L 1.7-7 .7 POSTM ENOPA USAL 25.8- 134.8 Not Available [facility] (Lab) [place], [address], 01/15/2025 13:15:15 01/16/20 25 01/15/2025 PTH PTH 78.5 pg/mL 18.4-8 0.1 Not Available [facility] (Lab) [place], [address], 01/15/2025 13:21:14 01/16/20 25 01/15/2025 VITAM IN D, 25-OH TOTAL vitamin D, 25-oh total 22 NG/mL 30-100 low INTER PRETA TION DEFIC IENT <20 INSUF FICIE NT 20-29 SUFFI CIENT 30-10 0 Not Available [facility] (Lab) [place], [address], 01/15/2025 13:21:16 01/16/20 25 01/15/2025 RETIC ULOCY TE COUNT reticulocyte count 1.8 % 0.8-2. 1 Not Available [facility] (Lab) [place], [address], 01/15/2025 13:23:32 01/16/20 25 01/15/2025 RETIC ULOCY TE COUNT abs reticulocyte s 0.09 x10'6 /uL 0.02-0 .10 Not Available [facility] (Lab) [place], [address], 01/15/2025 13:23:32 01/16/20 25 01/15/2025 RETIC ULOCY TE COUNT immature retic fraction 14.7 % 3.0-15 .9 Not Available [facility] (Lab) [place], [address], 01/15/2025 13:23:32 01/16/20 25 01/15/2025 RETIC ULOCY TE COUNT retic hemoglobin eqiv 24.1 pg 28.0-3 5.0 low Not Available [facility] (Lab) [place], [address], 01/15/2025 13:23:32 01/16/20 25 01/15/2025 IRON PROFI LE iron 75 mcg/d L 50.0-1 70.0 Not Available [facility] (Lab) [place], [address], 01/15/2025 13:25:20 01/16/20 25 01/15/2025 IRON PROFI LE iron binding cap 305 mcg/d L 250-45 0 Not Available [facility] (Lab) [place], [address], 01/15/2025 13:25:20 01/16/20 25 01/15/2025 IRON PROFI LE % iron saturation 25 % 20-55 Not Available [facility] (Lab) [place], [address], 01/15/2025 13:25:20 01/16/20 25 01/15/2025 PHOSP HORUS phosphorus 2.7 mg/dL 2.5-4. 9 Not Available [facility] (Lab) [place], [address], 01/15/2025 13:25:21 01/16/20 25 01/15/2025 FREE T4 free T4 1.24 NG/dL 0.76-1 .46 Not Available [facility] (Lab) [place], [address], 01/15/2025 13:25:23 01/16/2001/15/2025 TSH ULTRA SENSI TIVE TSH ultrasensiti ve 0.752 uIU/m L 0.358- 3.74 HIGH DOSES OF BIOTI N MAY INTER FERE WITH THIS TEST RESUL T. CORRE LATIO N TO CLINI FLORECITA HISTO RY AND PRESE NTATI ON RECOM ADAMA D. Not Available [facility] (Lab) [place], [address], 01/15/2025 13:25:25 01/16/20 25 01/15/2025 CBC WITH DIFF WBC 7.63 x10'3 /uL 4.5-11 .0 Not Available [facility] (Lab) [address], [place], [address], 01/15/2025 13:42:47 01/16/2001/15/2025 CBC WITH DIFF RBC 5.16 x10'6 /uL 4.20-5 .40 Not Available [facility] (Lab) [address], [place], [address], 01/15/2025 13:42:47 01/16/2001/15/2025 CBC WITH DIFF hemoglobin 11.2 g/dL 12.0-1 6.0 low Not Available [facility] (Lab) [address], [place], [address], 01/15/2025 13:42:47 01/16/20 25 01/15/2025 CBC WITH DIFF hematocrit 37.2 % 38.0-4 8.0 low Not Available [facility] (Lab) [address], [place], [address], 01/15/2025 13:42:47 01/16/2001/15/2025 CBC WITH DIFF MCV 72.1 fL 81.0-9 9.0 low Not Available [facility] (Lab) [address], [place], [address], 01/15/2025 13:42:47 01/16/2001/15/2025 CBC WITH DIFF MCH 21.7 pg 27.0-3 1.0 low Not Available [facility] (Lab) [address], [place], [address], 01/15/2025 13:42:47 01/16/20 25 01/15/2025 CBC WITH DIFF MCHC 30.1 g/dL 32.0-3 6.0 low Not Available [facility] (Lab) [address], [place], [address], 01/15/2025 13:42:47 01/16/2001/15/2025 CBC WITH DIFF RDW 14.1 % 11.5-1 4.5 Not Available [facility] (Lab) [address] [facility], [place], [address], 01/15/2025 13:42:47 01/16/20 25 01/15/2025 CBC WITH DIFF platelet count 251 x10'3 /uL 130-40 0 Not Available [facility] (Lab) [address] [facility], [place], [address], 01/15/2025 13:42:47 01/16/20 25 01/15/2025 CBC WITH DIFF MPV 11.0 fL 9.3-12 .2 Not Available [facility] (Lab) [address] [facility], [place], [address], 01/15/2025 13:42:47 01/16/2001/15/2025 CBC WITH DIFF diff type AUTOMA MARIANNA DIFFER ENTIAL Not Available [facility] (Lab) [address], [place], [address], 01/15/2025 13:42:47 01/16/2001/15/2025 CBC WITH DIFF neutrophils 64.4 % Not Available [facility] (Lab) [address], [place], [address], 01/15/2025 13:42:47 01/16/2001/15/2025 CBC WITH DIFF lymphocytes 24.4 % Not Available [facility] (Lab) [address] [facility], [place], [address], 01/15/2025 13:42:47 01/16/20 25 01/15/2025 CBC WITH DIFF monocytes 6.2 % Not Available [facility] (Lab) [place], [address], 01/15/2025 13:42:47 01/16/20 25 01/15/2025 CBC WITH DIFF eosinophils 4.2 % Not Available [facility] (Lab) [place], [address], 01/15/2025 13:42:47 01/16/20 25 01/15/2025 CBC WITH DIFF basophils 0.5 % Not Available [facility] (Lab) [place], [address], 01/15/2025 13:42:47 01/16/20 25 01/15/2025 CBC WITH DIFF immature granulocytes 0.3 % Not Available [facility] (Lab) [place], [address], 01/15/2025 13:42:47 01/16/20 25 01/15/2025 CBC WITH DIFF abs. neutrophils 4.92 x10'3 /uL 1.80-7 .70 Not Available [facility] (Lab) [place], [address], 01/15/2025 13:42:47 01/16/2001/15/2025 CBC WITH DIFF abs. lymphocytes 1.86 x10'3 /uL 1.00-4 .80 Not Available [facility] (Lab) [place], [address], 01/15/2025 13:42:47 01/16/20 25 01/15/2025 CBC WITH DIFF abs. monocytes 0.47 x10'3 /uL 0.24-0 .86 Not Available [facility] (Lab) [address] [facility], [place], [address], 01/15/2025 13:42:47 01/16/20 25 01/15/2025 CBC WITH DIFF abs. eosinophils 0.32 x10'3 /uL 0.04-0 .36 Not Available [facility] (Lab) [address] [facility], [place], [address], 01/15/2025 13:42:47 01/16/20 25 01/15/2025 CBC WITH DIFF abs. basophils 0.04 x10'3 /uL 0.01-0 .08 Not Available [facility] (Lab) [address] [facility], [place], [address], 01/15/2025 13:42:47 01/16/20 25 01/15/2025 CBC WITH DIFF abs. immature grans 0.02 x10'3 /uL 0.00-0 .49 Not Available [facility] (Lab) [place], [address], 01/15/2025 13:42:47 01/16/20 25 01/15/2025 CBC WITH DIFF RBC morphology SLIDE REVIEW ED Not Available [facility] (Lab) [place], [address], 01/15/2025 13:42:47 01/16/2001/15/2025 CBC WITH DIFF hypochromasi a 1+ Not Available [facility] (Lab) [place], [address], 01/15/2025 13:42:47 01/16/20 25 01/15/2025 CBC WITH DIFF microcytosis 1+ Not Available [facility] (Lab) [place], [address], 01/15/2025 13:42:47 01/16/20 25 01/15/2025 CBC WITH DIFF platelet estimate ADEQUA TE Not Available [facility] (Lab) [address], [place], [address], 01/15/2025 13:42:47 01/16/20 25 01/15/2025 FREE T3 free T3 2.4 pg/mL 2.18-3 .98 Not Available [facility] (Lab) One [facility], [place], [address], 01/15/2025 18:07:24 01/16/20 25 01/15/2025 MICRO ALBUM IN CREAT RATIO , URINE RANDO M creatinine [mass/volume ] in urine 101 text: 28 - 217 mg/dL Not Available Not Available 01/16/2025 15:56:49 01/16/20 25 01/15/2025 MICRO ALBUM IN CREAT RATIO , URINE RANDO M microalbumin [mass/volume ] in urine 1.3 mg/dL high: 2mg/dL Not Available Not Available 01/16/2025 15:56:49 01/16/2001/15/2025 MICRO ALBUM IN CREAT RATIO , URINE RANDO M microalbumin /creatinine [mass ratio] in urine 12.6 mg/g high: 30mg/g Not Available Not Available 01/16/2025 15:56:49 01/16/20 25 01/15/2025 25-Hy droxy vitam in D3+25 -Hydr oxyvi tamin D2 [Mass /volu me] in Serum or Plasm a 25-hydroxyvi tamin D3+25-hydrox yvitamin D2 [mass/volume ] in serum or plasma 22 text: 30 - 100 NG/mL low INTER PRETA TION DEFIC IENT <20 INSUF FICIE NT 20-29 SUFFI CIENT 30-10 0 Not Available Not Available 01/16/2025 15:56:49 01/16/20 25 01/15/2025 25-Hy droxy vitam in D3+25 -Hydr oxyvi tamin D2 [Mass /volu me] in Serum or Plasm a interpretati on and review of laboratory results Abnorm al Not Available Not Available 15:56:49 01/16/2001/15/2025 Phosp hate [Mass /volu me] in Serum or Plasm a phosphate [mass/volume ] in serum or plasma 2.7 text: 2.5 - 4.9 mg/dL Not Available Not Available 01/16/2025 15:56:49 01/16/20 25 01/15/[address] [Mass /volu me] in Serum or Plasm a parathyrin.i ntact [mass/volume ] in serum or plasma 78.5 pg/mL low: 18.4pg /mLhig h: 80.1pg /mL Not Available Not Available 01/16/2025 15:56:49 01/16/20 25 01/15/2025 Triio dothy katelyn e (T3) Free [Mass /volu me] in Serum or Plasm a triiodothyro nine (T3) free [mass/volume ] in serum or plasma 2.4 pg/mL low: 2.18pg /mLhig h: 3.98pg /mL Not Available Not Available 01/16/2025 15:56:49 01/16/20 25 01/15/2025 Thyro xine (T4) free [Mass /volu me] in Serum or Plasm a thyroxine (T4) free [mass/volume ] in serum or plasma 1.24 text: 0.76 - 1.46 NG/dL Not Available Not Available 01/16/2025 15:56:49 01/16/20 25 01/15/2025 Thyro tropi n [Unit s/vol ume] in Serum or Plasm a thyrotropin [units/volum e] in serum or plasma 0.752 text: 0.358 - 3.74 uIU/mL HIGH DOSES OF BIOTI N MAY INTER FERE WITH THIS TEST RESUL Ana [place] LATJUSTIN N TO CLINI FLORECITA HISTO RY AND PRESE NTATI ON RECOM ADAMA D. Not Available Not Available 01/16/2025 15:56:49 01/16/20 25 01/15/2025 CBC W Auto Diffe renletitia al panel - Blood leukocytes [#/volume] in blood by automated count 7.63 text: 4.5 - 11.0 x10'3/ uL Not Available Not Available 01/16/2025 15:56:49 01/16/20 25 01/15/2025 CBC W Auto Diffe renti al panel - Blood erythrocytes [#/volume] in blood by automated count 5.16 text: 4.20 - 5.40 x10'6/ uL Not Available Not Available 01/16/2025 15:56:49 01/16/20 25 01/15/2025 CBC W Auto Diffe renti al panel - Blood hemoglobin [mass/volume ] in blood 11.2 text: 12.0 - 16.0 g/dL low Not Available Not Available 01/16/2025 15:56:49 01/16/20 25 01/15/2025 CBC W Auto Diffe renti al panel - Blood hematocrit [volume fraction] of blood by calculation 37.2 % low: 38%hig h: 48% low Not Available Not Available 01/16/2025 15:56:49 01/16/20 25 01/15/2025 CBC W Auto Diffe renti al panel - Blood MCV [entitic mean volume] in red blood cells 72.1 text: 81.0 - 99.0 fL low Not Available Not Available 01/16/2025 15:56:49 01/16/20 25 01/15/2025 CBC W Auto Diffe renti al panel - Blood MCH [entitic mass] 21.7 pg low: 27pghi gh: 31pg low Not Available Not Available 01/16/2025 15:56:49 01/16/20 25 01/15/2025 CBC W Auto Diffe renti al panel - Blood MCHC [entitic mass/volume] in red blood cells 30.1 text: 32.0 - 36.0 g/dL low Not Available Not Available 01/16/2025 15:56:49 01/16/20 25 01/15/2025 CBC W Auto Diffe renti al panel - Blood RDW 14.1 % low: 11.5%h igh: 14.5% Not Available Not Available 01/16/2025 15:56:49 01/16/20 25 01/15/2025 CBC W Auto Diffe renti al panel - Blood platelets [#/volume] in blood 251 text: 130 - 400 x10'3/ uL Not Available Not Available 01/16/2025 15:56:49 01/16/20 25 01/15/2025 CBC W Auto Diffe renti al panel - Blood platelet [entitic mean volume] in blood 11 text: 9.3 - 12.2 fL Not Available Not Available 01/16/2025 15:56:49 01/16/20 25 01/15/2025 CBC W Auto Diffe renti al panel - Blood differential cell count method - blood AUTOMA MARIANNA DIFFER ENTIAL Not Available Not Available 15:56:49 01/16/20 25 01/15/2025 CBC W Auto Diffe renti al panel - Blood neutrophils/ leukocytes in blood by automated count 64.4 % Not Available Not Available 01/05 15:56:49 01/16/20 25 01/15/2025 CBC W Auto Diffe renti al panel - Blood lymphocytes/ leukocytes in blood by automated count 24.4 % Not Available Not Available 01/05 15:56:49 01/16/20 25 01/15/2025 CBC W Auto Diffe renti al panel - Blood monocytes/le ukocytes in blood by automated count 6.2 % Not Available Not Available 01/05 15:56:49 01/16/20 25 01/15/2025 CBC W Auto Diffe renti al panel - Blood eosinophils/ leukocytes in blood by automated count 4.2 % Not Available Not Available 01/05 15:56:49 01/16/20 25 01/15/2025 CBC W Auto Diffe renti al panel - Blood basophils/le ukocytes in blood by automated count 0.5 % Not Available Not Available 01/05 15:56:49 01/16/20 25 01/15/2025 CBC W Auto Diffe renti al panel - Blood immature granulocytes /leukocytes in blood by automated count 0.3 % Not Available Not Available 01/05 15:56:49 01/16/20 25 01/15/2025 CBC W Auto Diffe renti al panel - Blood neutrophils [#/volume] in blood 4.92 text: 1.80 - 7.70 x10'3/ uL Not Available Not Available 01/16/2025 15:56:49 01/16/20 25 01/15/2025 CBC W Auto Diffe renti al panel - Blood lymphocytes [#/volume] in blood 1.86 text: 1.00 - 4.80 x10'3/ uL Not Available Not Available 01/16/2025 15:56:49 01/16/20 25 01/15/2025 CBC W Auto Diffe renti al panel - Blood monocytes [#/volume] in blood 0.47 text: 0.24 - 0.86 x10'3/ uL Not Available Not Available 01/16/2025 15:56:49 01/16/20 25 01/15/2025 CBC W Auto Diffe renti al panel - Blood eosinophils [#/volume] in blood 0.32 text: 0.04 - 0.36 x10'3/ uL Not Available Not Available 01/16/2025 15:56:49 01/16/20 25 01/15/2025 CBC W Auto Diffe renti al panel - Blood basophils [#/volume] in blood 0.04 text: 0.01 - 0.08 x10'3/ uL Not Available Not Available 01/16/2025 15:56:49 01/16/20 25 01/15/2025 CBC W Auto Diffe renti al panel - Blood immature granulocytes [#/volume] in blood 0.02 text: 0.00 - 0.49 x10'3/ uL Not Available Not Available 01/16/2025 15:56:49 01/16/20 25 01/15/2025 CBC W Auto Diffe renti al panel - Blood erythrocytes [morphology] in blood by automated count SLIDE REVIEW ED Not Available Not Available 15:56:49 01/16/20 25 01/15/2025 CBC W Auto Diffe renti al panel - Blood hypochromia [presence] in blood 1+ Not Available Not Available 05/2025 15:56:49 01/16/20 25 01/15/2025 CBC W Auto Diffe renti al panel - Blood microcytes [presence] in blood 1+ Not Available Not Available 05/2025 15:56:49 01/16/20 25 01/15/2025 CBC W Auto Diffe renti al panel - Blood platelets [#/volume] in blood by automated count ADEQUA TE Not Available Not Available 15:56:49 01/16/2001/15/2025 CBC W Auto Diffe issa al panel - Blood interpretati on and review of laboratory results Abnorm al Not Available Not Available 15:56:49 01/16/20 25 01/15/2025 Danette tin [Mass /volu me] in Serum or Plasm a ferritin [mass/volume ] in serum or plasma 48.1 text: 8.0 - 388.0 NG/mL Not Available Not Available 01/16/2025 15:56:49 01/16/20 25 01/15/2025 Iron and Iron rebecca ng capac ity panel - Serum or Plasm a iron [mass/volume ] in serum or plasma 75 text: 50.0 - 170.0 mcg/dL Not Available Not Available 01/16/2025 15:56:49 01/16/20 25 01/15/2025 Iron and Iron rebecca ng capac ity panel - Serum or Plasm a iron binding capacity [mass/volume ] in serum or plasma 305 text: 250 - 450 mcg/dL Not Available Not Available 01/16/2025 15:56:49 01/16/2001/15/2025 Iron and Iron rebecca ng capac ity panel - Serum or Plasm a iron saturation [mass fraction] in serum or plasma 25 % low: 20%hig h: 55% Not Available Not Available 01/16/2025 15:56:49 01/16/2001/15/2025 Retic ulocy demetra [#/vo lume] in Blood by Autom ated count reticulocyte s/erythrocyt es in blood 1.8 % low: 0.8%hi gh: 2.1% Not Available Not Available 01/16/2025 15:56:49 01/16/20 25 01/15/2025 Retic ulocy demetra [#/vo lume] in Blood by Autom ated count reticulocyte s [#/volume] in blood by automated count 0.09 text: 0.02 - 0.10 x10'6/ uL Not Available Not Available 01/16/2025 15:56:49 01/16/20 25 01/15/2025 Retic ulocy demetra [#/vo lume] in Blood by Autom ated count immature reticulocyte s/erythrocyt es in cord blood by automated count 14.7 % low: 3%high : 15.9% Not Available Not Available 01/16/2025 15:56:49 01/16/2001/15/2025 Retic ulocy demetra [#/vo lume] in Blood by Autom ated count retic HGB 24.1 pg low: 28pghi gh: 35pg low Not Available Not Available 01/16/2025 15:56:49 01/16/20 25 01/15/2025 Retic ulocy demetra [#/vo lume] in Blood by Autom ated count interpretati on and review of laboratory results Abnorm al Not Available Not Available 15:56:49 01/16/2001/15/2025 Folli tropi n [Unit s/vol ume] in Serum or Plasm a follitropin [units/volum e] in serum or plasma 51.4 text: mIU/mL REFER ENCE RANGE S FOR FEMAL ES: FOLLI CULAR 3.5-1 2.5 MID-C YCLE 4.7-2 1.5 LUTEA L 1.7-7 .7 POSTM ENOPA USAL 25.8- 134.8 Not Available Not Available 01/16/2025 15:56:48 01/28/20 25 01/30/2025 FECAL FAT, QUALI TATIV E fecal fat, qualitative NORMAL Refer ence Range : ADA L Test Perfo rmed by Alaina Rich, [facility], [address] [facility] , [place], [place] Patri ryan Last M.D., Ph.D. , [facility] [employer] [facility] [employer] [facility] [employer] , CLIA [id number] Not Available [facility] (Lab) [facility], [place], [address], 01/30/2025 12:44:16 01/31/20 24 01/26/2022 myoca rdial perfu vale study w/ eject ion fract ion (PROC ) No observ ation record ed. [facility] Not Available 2023 15:58:06 01/31/20 24 08/11/2018 sharlene vinsonc bessyo gram No observ ation record ed. [facility] Not Available 2023 15:58:06 02/14/20 24 bone densi ty/de xa [facility] [address] [place] [address] Orderi ng Provid er: [facility] [address] [place] [address] [phone] EXAMIN ATION: BONE DENSIT Y/DEXA ACCESS ION: [id number] INDICA TIONS: Encoun ter for screen ing for osteop orosis COMPAR MELONY: None TECHNI QUE: DEXA bone minera l densit y evalua tion was perfor med in the AP projec tion over the lumbar spine and both hips utiliz ing standa rd imagin g techni ques. FINDIN GS: The BMD measur ed at the AP spine L1-L4 is 0.872 g/cm? with a T-scor e of -1.6. The BMD measur ed at the left femora l neck is 0.904 g/cm? with a T-scor e of 0.5. The BMD measur ed at the left hip is 1.054 g/cm? with a T-scor e of 0.9. The BMD measur ed at the right femora l neck is 1.066 g/cm? with a T-scor e of 2.0. The BMD measur ed at the right hip is 1.120 g/cm? with a T-scor e of 1.5. FRAX 10-yea r fractu re risk: Major Osteop orotic Fractu re: 4.3% Hip Fractu re: 0.1% IMPRES VALE: WHO Classi ficati on: Osteop enia. RECOMM ENDATI ONS: All patien ts should ensure an adequa te intake of dietar y calciu m and vitami n D. The NOF recomm end adults under the age of 50 need 1000 mg of calciu m and 400-80 0 IU of vitami n D daily. Effect tawanna therap y for the preven tion and treatm ent of osteop orosis includ e bispho sphona demetra. FOLLOW -UP: People with diagno sed cases of osteop orosis or at high risk for fractu re should have regula r bone minera l densit y test. For patien ts eligib le for Medica re, routin e testin g is allowe d once every 2 years. Testin g freque ncy can be increa sed to one year for patien ts who have rapidl y progre ssing diseas e, those who are receiv ing or discon tinuin g medica l therap y to restor e bone mass, or have additi onal risk factor s. Ordere d By: JAVIER NAVA Electr onical ly Signed By: Suzy Drew on 02/14/20 12:52 PM Interp reted By: Suzy Drew, 02/14/20 12:51 PM [email or web address] [facility] [address] [facility], [place], [address], 02/16/2024 10:04:27 02/15/20 24 MAMMO , scree mingo, tomos ynthe sis, bilat eral [facility] [place] [address] Orderi ng Provid er: JAVIER NAVA This is a summar y report . The comple te report is availa ble in the patien t's medica l record . If you cannot access the medica l record , please contac t the sendin erik coronel for a detail ed fax or copy. [facility] [facility] [place], [place] [address] [phone] Examin ation: Screen ing bilate ral mammog cailin Access ion: [id number] Exam Date/T mary lou: 02/14/20 24 1:06 PM Clinic al histor y: Prior benign left biopsy 2009, no curren t compla ints. Compar melony: 10/11/19 22 Techni que: Digita l screen ing mammog rosalia of both breast s was perfor med. Breast tomosy nthesi s acquis itions were obtain ed and review ed. This study was read with the assist ance of a [employer] er-aid ed detect ion system . Tissue densit y: There are scatte red areas of fibrog landul ar densit y. Findin gs: Progre ssive mass of the retroa reolar right breast . New ovoid mass of left upper breast . No suspic ious microc alcifi cation or akhil ectura l distor tion. IMPRES VALE: Progre ssive right breast mass, new ovoid mass left upper breast . Recomm endati on: 1. Additi onal Imagin g, Bilate ral Assess ment: ACR BI-RAD S 0 - INCOMP LETE: NEEDS ADDITI ONAL IMAGIN G EVALUA TION Ordere d By: JAVIER NAVA Electr onical ly Signed By: Tuan Treviño on 7:16 AM Interp reted By: Tuan Treviño, 7:13 AM [email or web address] [facility] [address] [facility], [place], [address], 02/16/2024 10:05:14 03/06/20 24 mg diag W lisset bilat digi [facility] [address] [place] [address] Orderi ng Provid er: JAVIER NAVA This is a summar y report . The comple te report is availa ble in the patien t's medica l record . If you cannot access the medica l record , please contac t the sendin g organi homer for a detail ed fax or copy. [facility] [facility] [place] [address] [phone] Examin ation: Bilate ral 3D diagno stic mammog cailin with bilate ral ultras ound. Access ion: [id number], [id number], [id number] Reason For Exam: other abnorm al and inconc lusive findin gs on diagno stic imagin g of breast Bilate ral breast masses on screen ing exam with furthe r evalua tion recomm ended Compar melony: 02/14/20 24 screen ing mammog cailin Techni que: Digita l bilate ral 3D diagno stic mammog rosalia and bilate ral ultras ound was perfor med. This study was read with the assist ance of a [employer] er-aid ed detect ion system . Tissue densit y: There are scatte red areas of fibrog landul ar densit y. Findin gs: 2 adjace nt rounde d masses are seen in the mid depth tissue of the right breast just above the nipple line. Both persis t with spot compre ssion imagin g. Subseq uent ultras ound evalua tion is perfor med. In the right breast at 11:00 positi on is a 13 x 12 x 6 mm wider than tall well-c ircums cribed hypoec hoic lesion with enterprise engineer ior acoust ic enhanc ement. There is a single periph eral septat ion with probab le daught er cyst. Six-mo nth follow -up recomm ended. [place] at 12:00 positi on 2 cm from the nipple is an additi onal hypoec hoic lesion measur ing 15 x 12 x 10 mm. This has well-d efined altamirano with enterprise engineer ior acoust ic enhanc ement. Minima l periph eral echoes are noted. This is a minima lly compli cated cyst. Six-mo nth follow -up recomm ended. Small rounde d mass in the mid depth tissue of the upper left breast persis ts with spot compre ssion imagin g in both MLO and cc trajec tories . Furthe r evalua tion with ultras ound is perfor med. At 12:00 positi on 2 cm the nipple is a correl ate lesion measur ing 4 x 4 by 3 x 5 mm. This is wider than tall and does not appear to cross tissue bounda chemo. There is no surrou nding tether ing of tissue . English Teacher ior altamirano well-d efined . Hetero geneou s project management intern al echoes are noted. This is a compli cated cyst. Six-mo nth follow -up recomm ended. =====I MPRESS ION:== === Bilate ral minima lly compli cated cysts Assess ment: ACR BI-RAD S 3 - PROBAB LY BENIGN FINDIN G(S) - SHORT INTERV AL FOLLOW -UP SUGGES MARIANNA Recomm endati on: 1:Shor t interv al follow -up in 6 months . Bilate ral COMMEN TS: Please repeat bilate ral diagno stic mammog rosalia and ultras ound evalua tion of compli cated cysts in 6 months . ====== ====== ====== === Examin ation: Breast ultras ound Findin gs: See combin ed report above. Examin ation: Breast ultras ound Findin gs: See combin ed report above. Commen ts: Ordere d By: JAVIER Landin onical ly Signed By: Contreras huerta MD on 1:06 PM Interp reted By: Contreras huerta MD, 1:03 PM [facility] [address] [place], [address], 01/11/2025 17:13:15 03/06/20 24 breas t lt birad ltd [facility] [place] [address] Orderi ng Provid er: JAVIER NAVA This is a summar y report . The comple te report is availa ble in the patien t's medica l record . If you cannot access the medica l record , please contac t the eri coronel for a detail ed fax or copy. [facility] [place], [place] [id number] [id number] Examin ation: Bilate ral 3D diagno stic mammog cailin with bilate ral ultras ound. Access ion: [id number] Reason For Exam: other abnorm al and inconc lusive findin gs on diagno stic imagin g of breast Bilate ral breast masses on screen ing exam with furthe r evalua tion recomm ended Compar melony: 02/14/20 24 screen ing mammog cailin Techni que: Digita l bilate ral 3D diagno stic mammog rosalia and bilate ral ultras ound was perfor med. This study was read with the assist ance of a [employer] er-aid ed detect ion system . Tissue densit y: There are scatte red areas of fibrog landul ar densit y. Findin gs: 2 adjace nt rounde d masses are seen in the mid depth tissue of the right breast just above the nipple line. Both persis t with spot compre ssion imagin g. Subseq uent ultras ound evalua tion is perfor med. In the right breast at 11:00 positi on is a 13 x 12 x 6 mm wider than tall well-c ircums cribed hypoec hoic lesion with enterprise engineer ior acoust ic enhanc ement. There is a single periph eral septat ion with probab le daught er cyst. Six-mo nth follow -up recomm ended. Nearby at 12:00 positi on 2 cm from the nipple is an additi onal hypoec hoic lesion measur ing 15 x 12 x 10 mm. This has well-d efined altamirano with enterprise engineer ior acoust ic enhanc ement. Minima l periph eral echoes are noted. This is a minima lly compli cated cyst. Six-mo nth follow -up recomm ended. Small rounde d mass in the mid depth tissue of the upper left breast persis ts with spot compre ssion imagin g in both MLO and cc trajec tories . Furthe r evalua tion with ultras ound is perfor med. At 12:00 positi on 2 cm the nipple is a correl ate lesion measur ing 4 x 4 by 3 x 5 mm. This is wider than tall and does not appear to cross tissue bounda chemo. There is no surrou nding tether ing of tissue . English Teacher ior altamirano well-d efined . Hetero geneou s project management intern al echoes are noted. This is a compli cated cyst. Six-mo nth follow -up recomm ended. =====I MPRESS ION:== === Bilate ral minima lly compli cated cysts Assess ment: ACR BI-RAD S 3 - PROBAB LY BENIGN FINDIN G(S) - SHORT INTERV AL FOLLOW -UP SUGGES MARIANNA Recomm endati on: 1:Kezia t interv al follow -up in 6 months . Bilate ral COMMEN TS: Please repeat bilate ral diagno stic mammog rosalia and ultras ound evalua tion of compli cated cysts in 6 months . ====== ====== ====== === Examin ation: Breast ultras ound Findin gs: See combin ed report above. Examin ation: Breast ultras ound Findin gs: See combin ed report above. Commen ts: Ordere d By: JAVIER Landin onical ly Signed By: Contreras huerta MD on 1:06 PM Interp reted By: Contreras huerta MD, 1:03 PM pc1 [facility] 1 [facility], [place], [address], 01/11/2025 17:13:15 03/06/20 24 US breas t RT [facility]ad [facility] [place] [address] Orderi ng Provid er: JAVIER NAVA This is a summar y report . The comple te report is availa ble in the patien t's medica l record . If you cannot access the medica l record , please contac t the sendin g organi zasoraida for a detail ed fax or copy. [facility] [place] [address] [id number] Examin ation: Bilate ral 3D diagno stic mammog cailin with bilate ral ultras ound. Access ion: [id number] Reason For Exam: other abnorm al and inconc lusive findin gs on diagno stic imagin g of breast Bilate ral breast masses on screen ing exam with furthe r evalua tion recomm ended Compar melony: 02/14/20 24 screen ing mammog cailin Techni que: Digita l bilate ral 3D diagno stic mammog rosalia and bilate ral ultras ound was perfor med. This study was read with the assist ance of a [employer] er-aid ed detect ion system . Tissue densit y: There are scatte red areas of fibrog landul ar densit y. Findin gs: 2 adjace nt rounde d masses are seen in the mid depth tissue of the right breast just above the nipple line. Both persis t with spot compre ssion imagin g. Subseq uent ultras ound evalua tion is perfor med. In the right breast at 11:00 positi on is a 13 x 12 x 6 mm wider than tall well-c ircums cribed hypoec hoic lesion with enterprise engineer ior acoust ic enhanc ement. There is a single periph eral septat ion with probab le daught er cyst. Six-mo nth follow -up recomm ended. Nearby at 12:00 positi on 2 cm from the nipple is an additi onal hypoec hoic lesion measur ing 15 x 12 x 10 mm. This has well-d efined altamirano with enterprise engineer ior acoust ic enhanc ement. Minima l periph eral echoes are noted. This is a minima lly compli cated cyst. Six-mo nth follow -up recomm ended. Small rounde d mass in the mid depth tissue of the upper left breast persis ts with spot compre ssion imagin g in both MLO and cc trajec tories . Furthe r evalua tion with ultras ound is perfor med. At 12:00 positi on 2 cm the nipple is a correl ate lesion measur ing 4 x 4 by 3 x 5 mm. This is wider than tall and does not appear to cross tissue bounda chemo. There is no surrou nding tether ing of tissue . English Teacher ior altamirano well-d efined . Hetero geneou s project management intern al echoes are noted. This is a compli cated cyst. Six-mo nth follow -up recomm ended. =====I MPRESS ION:== === Bilate ral minima lly compli cated cysts Assess ment: ACR BI-RAD S 3 - PROBAB LY BENIGN FINDIN G(S) - SHORT INTERV AL FOLLOW -UP SUGGES MARIANNA Recomm endati on: 1:Shor t interv al follow -up in 6 months . Bilate ral COMMEN TS: Please repeat bilate ral diagno stic mammog rosalia and ultras ound evalua tion of compli cated cysts in 6 months . ====== ====== ====== === Examin ation: Breast ultras ound Findin gs: See combin ed report above. Examin ation: Breast ultras ound Findin gs: See combin ed report above. Commen ts: Ordere d By: JAVIER Landin onical ly Signed By: Contreras huerta MD on 1:06 PM Interp reted By: Contreras huerta MD, 1:03 PM [facility] 1 [facility], [place], [address], 01/11/2025 17:13:15 08/21/19 25 MRI pel wwo con [facility] [place] [address] Orderi ng Provid er: SUZAN TRINIDAD [facility] [place] [address] [facility] [address] [place] [address] Examin ation: MRI PEL WWO CON Exam time: 025 8:53 AM Clinic al histor y: LEIOMY SHANE OF UTERUS Compar melony: No compar melony. Techni que: Multip lanar, multis equenc e MR images of the pelvis were obtain ed before and after admini strati on of contra st. 19 mL of Dotare m admini stered withou t advers e event. Findin gs: Motion artifa ct affect s multip le sequen veronica result ing in degrad ed image qualit y and limiti ng sensit ivity. Findin gs are within the limita tions of motion . The uterus is enlarg ed and bulky measur ing 14.0 x 8.8 x 7.6 cm. Gabriel us myomet rial based mass lesion s are identi fied, demons tratin g low signal on T1 and T2-griselda ghted sequen veronica most consis tent with uterin e fibroi ds. The larges t mass is presen t within the enterprise engineer ior body measur ing 5.8 x 4.3 x 5.1 cm, locate d intram ural but extend ing to a submuc osal positi on and displa cing the underl mackenzie endome trium. An additi onal large subser osal, slight ly pedunc ulated fibroi d is seen involv ing the anteri or fundus measur ing 5.0 x 4.0 x 5.1 cm. Multip le other smalle r scatte red intram ural and subser osal fibroi ds are noted. The majori ty of these fibroi ds enhanc e homoge neousl y on postco ntrast imagin g, and may be amenda ble to uterin e artery emboli zation if desire d. There is a subser osal fibroi d along the anteri or lower uterin e segmen t that measur es up to 3.5 cm that demons trates no signif icant project management intern al enhanc ement (serie s 9 image 22), consis tent with necros is and may not improv e with uterin e artery emboli zation . The endome trium is poorly assess ed due to being displa ashlyn and distor marianna by the gabriel us fibroi ds as well as obscur ed by motion artifa ct. The cervix appear s normal . No solid adnexa l mass is identi fied. The urinar y bladde r appear s normal . There is trace free fluid within the pelvis , which may be physio logic. No pelvic lympha denopa thy is identi fied. Coloni c divert iculos is withou t inflam matory proces s. No abnorm al marrow signal is noted. Arthri tic change s of the bilate ral hips. Includ ed pelvic muscul ature appear s intact . IMPRES VALE: 1. Enlarg ed, bulky uterus contai mingo gabriel us fibroi ds as descri bed in the report . The majori ty of these fibroi ds enhanc e homoge neousl y on postco ntrast imagin g and may be amenda ble to uterin e artery emboli zation if desire d. 2. The endome trium is poorly assess ed due to being displa ashlyn and distor marianna by the gabriel us fibroi ds as well as obscur ed by motion artifa ct. 3. Trace free fluid within the pelvis , which may be physio logic. 4. Coloni c divert iculos is withou t inflam matory proces s. Referr ed By: SUZAN TRINIDAD Electr onical ly Signed By: Carlos Alberto Cooper MD on 9:15 AM Interp reted By: Carlos Alberto Cooper MD, 9:05 AM MRI due to PT still cyclin g at 63yo, 19ml Dotare m. [facility] 1 [facility], [place], [address], 01/11/2025 17:13:15 08/30/19 25 breas t RT birad ltd [facility] [place] [address] Orderi ng Bravo er: JAVIER NAVA This is a summar y report . The comple te report is availa ble in the patien t's medica l record . If you cannot access the medica l record , please contac t the sendin g organi zation for a detail ed fax or copy. [facility] [place], [place] [address] [phone] EXAMIN ATION: Digita l bilate ral diagno stic mammog cailin with 3-D tomogr aphy. Right breast ultras ound. Left breast ultras ound. ACCESS ION: [id number], [id number] EXAM DATE/T MARY LOU: 025 9:05 AM REASON FOR EXAM: Abn new COMPAR MELONY: 024. 02/14/20 24. TECHNI QUE: Digita l diagno stic mammog rosalia of both breast s was perfor med in additi on to 3-D Tomosy nthesi s techni que. This study was read with the assist ance of a [employer] er-aid ed detect ion system . Focuse d bilate ral breast ultras ound TISSUE DENSIT Y: There are scatte red areas of fibrog landul ar densit y. Findin gs: On mammog rosalia, interv al resolu tion of prior left breast nodule . Appear s smalle r on same-d ay ultras ound.. New nodule shown to be a cyst at the 9:00 positi on right breast enterprise engineer ior depth. Previo usly identi fied 2 adjace nt nodule s appear to be smalle r on mammog rosalia. One is smalle r on ultras ound one is slight ly larger . Follow -up in 6 months of the larger lesion .. Left breast ultras ound. Imagin g at the 12:00 positi on of the left breast . 2 cm from the nipple . Simple appear ing cyst with throug h transm ission . Measur es 4.2 x 2.0 x 3.5 mm. Prior measur ement of 4.4 x 2.6 x 4.7 mm. No furthe r workup needed . Right breast ultras ound. Imagin g at the 11 to 12:00 positi on of the right breast . 2 cm from the nipple . There is a well-d efined comple x cyst marked as #3 on image 21 of 41. No abnorm al color flow. No shadow ing. Measur es 1.5 x 0.7 x 1.5 cm. Prior measur ement of 1.2 x 0.6 x 1.3 cm. Due to slight increa se in size follow -up in 6 months . Well-d efined comple x cyst marked as lesion #2 on image 17. Throug h transm ission . No abnorm al color flow. Measur es 1.3 x 0.8 x 1.1 cm. Prior measur ement of 1.2 x 1.0 x 1.5 cm.. There is an adjace nt simple appear ing cyst at this same locati on. Anecho ic withou t shadow ing. Measur es 6.0 x 2.8 x 5.3 mm.. Imagin g of the area of new nodule at the 9:00 positi on right breast . 7 8 cm from the nipple . There are 2 adjace nt simple appear ing cyst with throug h transm ission . Larges t measur es 5.9 x 3.4 x 5.9 mm. No furthe r workup needed . =====I MPRESS ION:== === Follow -up right breast comple x cyst, marked as #3, on the ultras ound. Follow -up in 6 months .. No follow -up needed on the left side. ASSESS MENT: ACR BI-RAD S 3 - PROBAB LY BENIGN FINDIN G(S) - SHORT INTERV AL FOLLOW -UP SUGGES MARIANNA Recomm endati on: 1: Short interv al follow -up in 6 months . Right COMMEN TS: ====== ====== ====== ====== Ordere d By: JAVIER NAVA Electr onical ly Signed By: Cristiana Corral on 025 12:10 PM Interp reted By: Cristiana Corral , 025 10:[address] [facility], [place], [address], 01/11/2025 17:13:15 08/30/19 25 breas t lt [employer] [facility] [place] [address] Orderi ng Provid er: JAVIER NAVA This is a summar y report . The comple te report is availa ble in the patien t's medica l record . If you cannot access the medica l record , please contac t the sendin g organi homer for a detail ed fax or copy. [facility] [place], [place] [address] [id number] EXAMIN ATION: Digita l bilate ral diagno stic mammog cailin with 3-D tomogr aphy. Right breast ultras ound. Left breast ultras ound. ACCESS ION: [id number], [id number], [id number] EXAM DATE/T MARY LOU: 025 9:05 AM REASON FOR EXAM: Abn new COMPAR MELONY: 024. 02/14/20 24. TECHNI QUE: Eyala jayda diagno stic mammog rosalia of both breast s was perfor med in additi on to 3-D Tomosy nthesi s techni que. This study was read with the assist ance of a [employer] er-aid ed detect ion system . Focuse d bilate ral breast ultras ound TISSUE DENSIT Y: There are scatte red areas of fibrog landul ar densit y. Findin gs: On mammog rosalia, interv al resolu tion of prior left breast nodule . Appear s smalle r on same-d ay ultras ound.. New nodule shown to be a cyst at the 9:00 positi on right breast enterprise engineer ior depth. Previo usly identi fied 2 adjace nt nodule s appear to be smalle r on mammog rosalia. One is smalle r on ultras ound one is slight ly larger . Follow -up in 6 months of the larger lesion .. Left breast ultras ound. Imagin g at the 12:00 positi on of the left breast . 2 cm from the nipple . Simple appear ing cyst with throug h transm ission . Measur es 4.2 x 2.0 x 3.5 mm. Prior measur ement of 4.4 x 2.6 x 4.7 mm. No furthe r workup needed . Right breast ultras ound. Imagin g at the 11 to 12:00 positi on of the right breast . 2 cm from the nipple . There is a well-d efined comple x cyst marked as #3 on image 21 of 41. No abnorm al color flow. No shadow ing. Measur es 1.5 x 0.7 x 1.5 cm. Prior measur ement of 1.2 x 0.6 x 1.3 cm. Due to slight increa se in size follow -up in 6 months . Well-d efined comple x cyst marked as lesion #2 on image 17. Throug h transm ission . No abnorm al color flow. Measur es 1.3 x 0.8 x 1.1 cm. Prior measur ement of 1.2 x 1.0 x 1.5 cm.. There is an adjace nt simple appear ing cyst at this same locati on. Anecho ic withou t shadow ing. Measur es 6.0 x 2.8 x 5.3 mm.. Imagin g of the area of new nodule at the 9:00 positi on right breast . 7 8 cm from the nipple . There are 2 adjace nt simple appear ing cyst with throug h transm ission . Larges t measur es 5.9 x 3.4 x 5.9 mm. No furthe r workup needed . =====I MPRESS ION:== === Follow -up right breast comple x cyst, marked as #3, on the ultras ound. Follow -up in 6 months .. No follow -up needed on the left side. ASSESS MENT: ACR BI-RAD S 3 - PROBAB LY BENIGN FINDIN G(S) - SHORT INTERV AL FOLLOW -UP SUGGES MARIANNA Recomm endati on: 1: Short interv al follow -up in 6 months . Right COMMEN TS: ====== ====== ====== ====== Ordere d By: JAVIER NAVA Electr onical ly Signed By: Cristiana Corral on 025 12:10 PM Interp reted By: Cristiana Corral , 025 10:[address] 1 [facility], [place], [address], 01/11/2025 17:13:15 08/30/19 25 mg diag W lisset bilat digi [facility] [place] [address] Orderi ng Provid er: JAVIER NAVA This is a summar y report . The comple te report is availa ble in the patien t's medica l record . If you cannot access the medica l record , please contac t the sendin erik coronel for a detail ed fax or copy. [facility] [place] [address] EXAMIN ATION: Digita l bilate ral diagno stic mammog cailin with 3-D tomogr aphy. Right breast ultras ound. Left breast ultras ound. ACCESS ION: [id number], [id number] EXAM DATE/T MARY LOU: 025 9:05 AM REASON FOR EXAM: Abn new COMPAR MELONY: 024. 02/14/20 24. TECHNI QUE: Digita l diagno stic mammog rosalia of both breast s was perfor med in additi on to 3-D Tomosy nthesi s techni que. This study was read with the assist ance of a [employer] er-aid ed detect ion system . Focuse d bilate ral breast ultras ound TISSUE DENSIT Y: There are scatte red areas of fibrog landul ar densit y. Findin gs: On mammog rosalia, interv al resolu tion of prior left breast nodule . Appear s smalle r on same-d ay ultras ound.. New nodule shown to be a cyst at the 9:00 positi on right breast enterprise engineer ior depth. Previo usly identi fied 2 adjace nt nodule s appear to be smalle r on mammog rosalia. One is smalle r on ultras ound one is slight ly larger . Follow -up in 6 months of the larger lesion .. Left breast ultras ound. Imagin g at the 12:00 positi on of the left breast . 2 cm from the nipple . Simple appear ing cyst with throug h transm ission . Measur es 4.2 x 2.0 x 3.5 mm. Prior measur ement of 4.4 x 2.6 x 4.7 mm. No furthe r workup needed . Right breast ultras ound. Imagin g at the 11 to 12:00 positi on of the right breast . 2 cm from the nipple . There is a well-d efined comple x cyst marked as #3 on image 21 of 41. No abnorm al color flow. No shadow ing. Measur es 1.5 x 0.7 x 1.5 cm. Prior measur ement of 1.2 x 0.6 x 1.3 cm. Due to slight increa se in size follow -up in 6 months . Well-d efined comple x cyst marked as lesion #2 on image 17. Throug h transm ission . No abnorm al color flow. Measur es 1.3 x 0.8 x 1.1 cm. Prior measur ement of 1.2 x 1.0 x 1.5 cm.. There is an adjace nt simple appear ing cyst at this same locati on. Anecho ic withou t shadow ing. Measur es 6.0 x 2.8 x 5.3 mm.. Imagin g of the area of new nodule at the 9:00 positi on right breast . 7 8 cm from the nipple . There are 2 adjace nt simple appear ing cyst with throug h transm ission . Larges t measur es 5.9 x 3.4 x 5.9 mm. No furthe r workup needed . =====I MPRESS ION:== === Follow -up right breast comple x cyst, marked as #3, on the ultras ound. Follow -up in 6 months .. No follow -up needed on the left side. ASSESS MENT: ACR BI-RAD S 3 - PROBAB LY BENIGN FINDIN G(S) - SHORT INTERV AL FOLLOW -UP SUGGES MARIANNA Recomm endati on: 1: Short interv al follow -up in 6 months . Right COMMEN TS: ====== ====== ====== ====== Ordere d By: JAVIER NAVA Electr onical ly Signed By: Cristiana Corral on 025 12:10 PM Interp reted By: Cristiana Corral , 025 10:[address] 1 [facility], [place], [address], 01/11/2025 17:13:15 01/16/20 25 xr hip RT 2V [facility] [place] [address] Orderi ng Provid er: JAVIER NAVA [facility] [place] [facility] [address] [place] [address] XR HIP RT 2V: 12:07 PM CLINIC AL INDICA TION: Right hip pain that someti mes hurts to walk. COMPAR MELONY: MRI pelvis TECHNI QUE: AP and latera l views of the right hip FINDIN GS: No fractu re or disloc ation is seen. Eccent ramona narrow ing of the medial aspect of the hip joint noted bilate rally, modera te to severe . Visual ized portio ns of the sacroi liac, left hip and sacral neural forami nal struct ures appear within normal limits . Calcif ied degene rative leiomy shane. IMPRES VALE: 1. No osseou s or articu lar abnorm alitie s. 2. 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 The attend ing radiol ogist has review ed the image( s) and agrees with the conten t of this report . Ordere d By: JAVIER NAVA Electr onical ly Signed By: Carlos Alberto Wynn MD on 2:41 PM Interp reted By: Laurie esteban MD, 1:16 PM [email or web address] [facility] 1 [facility], [place], [address], 01/29/2025 12:02:13 03/01/20 25 US breas t RT birad ltd [facility] [place] [address] Orderi ng Provid er: JAVIER NAVA This is a summar y report . The comple te report is availa ble in the patien t's medica l record . If you cannot access the medica l record , please contac t the eri coronel for a detail ed fax or copy. [facility] [place] [address] [id number] EXAMIN ATION: Digita l right diagno stic mammog cailin with 3-D tomosy nthesi s. Right breast ultras ound ACCESS ION: [id number], [id number] EXAM DATE/T MARY LOU: 2:25 PM REASON FOR EXAM: Other abnorm al and inconc lusive findin gs COMPAR MELONY: 025. 024. 02/14/20 24 TECHNI QUE: Digita l diagno stic mammog rosalia of the right breast was perfor med in additi on to 3-D Tomosy nthesi s techni que. This study was read with the assist ance of a [employer] ed detect ion system . TISSUE DENSIT Y: There are scatte red areas of fibrog landul ar densit y. Findin gs: Previo usly identi fied well-d efined lesion at the 12:00 positi on of the right breast , anteri or depth, is smalle r on today' s mammog cailin and ultras ound.. Prior ultras ound proven cyst at the 9:00 positi on, enterprise engineer ior depth, is slight ly larger . Benign appear ance. No malign ant microc alcifi cation s or akhil ectura l distor tion. RIGHT BREAST ULTRAS OUND. Imagin g at the 12:00 positi on of the right breast . 2 cm from the nipple . There has been interv al decrea se in size of slight ly comple x cyst. Throug h transm ission . No abnorm al color flow. Measur es 9.1 x 7.2 x 10.1 mm. Prior measur ement of 12.5 x 7.6 x 11.0 mm. Decrea se in size would signif y that this is benign . ===== IMPRES VALE: ===== 1. No mammog raphic eviden ce of malign marisabel. 2. Interv al decrea se in size of a benign slight ly comple x cyst at the 12:00 positi on. Assess ment: ACR BI-RAD S 2 - BENIGN FINDIN G(S) Recomm endati on: 1:Rout ine Screen ing Bilate ral Commen ts: Ordere d By: JAVIER NAVA Electr onical ly Signed By: Cristiana Corral on 3:19 PM Interp reted By: Cristiana Corral , 9/25/2 025 3:13 PM [email or web address] [facility] [address] [facility], [place], [address], 03/02/2025 13:27:10 03/01/20 25 mg diag W lisset RT digi [facility] [address] [place] [address] Orderi ng Provid er: JAVIER NAVA This is a summar y report . The comple te report is availa ble in the patien t's medica l record . If you cannot access the medica l record , please contac t the sendin erik coronel for a detail ed fax or copy. [facility] [place] [address] 618 EXAMIN ATION: Digita l right diagno stic mammog cailin with 3-D tomosy nthesi s. Right breast ultras ound ACCESS ION: [id number], [id number] EXAM DATE/T MARY LOU: 025 2:25 PM REASON FOR EXAM: Other abnorm al and inconc lusive findin gs COMPAR MELONY: 025. 024. 02/14/20 24 TECHNI QUE: Digita l diagno stic mammog rosalia of the right breast was perfor med in additi on to 3-D Tomosy nthesi s techni que. This study was read with the assist ance of a [employer] er-aid ed detect ion system . TISSUE DENSIT Y: There are scatte red areas of fibrog landul ar densit y. Findin gs: Previo usly identi fied well-d efined lesion at the 12:00 positi on of the right breast , anteri or depth, is smalle r on today' s mammog cailin and ultras ound.. Prior ultras ound proven cyst at the 9:00 positi on, enterprise engineer ior depth, is slight ly larger . Benign appear ance. No malign ant microc alcifi cation s or akhil ectura l distor tion. RIGHT BREAST ULTRAS OUND. Imagin g at the 12:00 positi on of the right breast . 2 cm from the nipple . There has been interv al decrea se in size of slight ly comple x cyst. Throug h transm ission . No abnorm al color flow. Measur es 9.1 x 7.2 x 10.1 mm. Prior measur ement of 12.5 x 7.6 x 11.0 mm. Decrea se in size would signif y that this is benign . ===== IMPRES VALE: ===== 1. No mammog raphic eviden ce of malign marisabel. 2. Interv al decrea se in size of a benign slight ly comple x cyst at the 12:00 positi on. Assess ment: ACR BI-RAD S 2 - BENIGN FINDIN G(S) Recomm endati on: 1:Rout ine Screen ing Bilate ral Commen ts: Ordere d By: JAVIER Landin onical ly Signed By: Cristiana Corral on 025 3:19 PM Interp reted By: Cristiana Corral , 025 3:[address] [place], [address], 03/02/2025 13:27:10 03/01/2003/01/2025 MAMMO , diagn ostic , digit al, unila teral No observ ation record ed. [email or web address] [facility] Central Scheduling [address] [place], [address], 03/16/2025 08:18:59 03/01/2003/01/2025 MAMMO , diagn ostic , digit al, unila teral No observ ation record ed. [address] Central Scheduling 1 [place], [address], 03/01/2025 17:02:33 03/19/2003/14/2025 US, peldemetrius s No observ ation record ed. [address], [place], [address], 03/20/2025 13:19:46 Result Notes Documentation Provider Name and Address Organization Details Recorded Time Mammo, Screening, Tomosynthesis, Bilateral : [facility] [place] [address] Ordering Provider: JAVIER NAVA This is a summary report. The complete report is available in the patient's medical record. If you cannot access the medical record, please contact the sending organization for a detailed fax or copy. [facility] [address] [place] [address] Examination: Screening bilateral mammogram Exam Date/Time: 02/14/2024 1:06 PM Clinical history: Prior benign left biopsy 2009, no current complaints. Comparison: 10/10/2021 Technique: Digital screening mammography of both breasts was performed. Breast tomosynthesis acquisitions were obtained and reviewed. This study was read with the assistance of a computer-aided detection system. Tissue density: There are scattered areas of fibroglandular density. Findings: Progressive mass of the retroareolar right breast. New ovoid mass of left upper breast. No suspicious microcalcification or architectural distortion. IMPRESSION: Progressive right breast mass, new ovoid mass left upper breast. Recommendation: 1. Additional Imaging, Bilateral Assessment: ACR BI-RADS 0 - INCOMPLETE: NEEDS ADDITIONAL IMAGING EVALUATION Ordered By: JAVIER NAVA Interpreted By: Tuan Treviño, 02/15/2024 7:13 AM Goldie wan [facility] 02/16/2024 10:05:14 Procedures Surgical History Date Name Laterality Status Provider Name and Address Organization Details Recorded Time 02/15/20 24 Date of Last Mammogram completed Adri Velasco [facility] 01/11/2025 16:27:42 02/14/20 24 Most [facility] 15:32:27 06/07/19 19 Date of Last [facility] Smear [facility] 14:46:13 12/17/19 18 Colonoscopy completed MD Danica Franco [facility] [address], [address], [facility] 02/02/2024 20:26:14 06/07/19 17 Date of Last Colonoscopy completed [facility] 01/31/2024 15:18:48 06/07/18 92 Appendectomy completed [facility] 01/31/2024 14:45:24 06/07/18 90 section completed [facility] 01/31/2024 14:47:03 06/07/18 86 section completed [facility] 01/31/2024 14:37:05 06/07/18 81 section completed [facility] 01/31/2024 14:36:55 dilation and curettage completed MD Danica Franco [facility] [address], [place], [address], [facility] 01/31/2024 15:43:29 breast procedure completed MD Lalito Restrepo[address] [place] [address] [address], [place], [address], [facility] 01/31/2024 15:45:35 Imaging Results None recorded. Procedure Notes None recorded. Medical Equipment None Reported. Allergies No known drug allergies Medications Name Sig Start Date Stop Date Status Note LastModified by Organization Details LastModified Time losartan 50 mg tablet TAKE 1 TABLET BY MOUTH EVERY DAY active Not Available Not Available No t Available potassium chloride ER 10 mEq tablet,extend ed release TAKE 1 TABLET BY MOUTH EVERY DAY 2024 active Not Available Not Available Not Avai lable furosemide 20 mg tablet TAKE 1 TABLET (20 MG) DAILY FOR SWELLLING active Not Available Not Available No t Available triamterene 75 mg-hydrochlor othiazide 50 mg tablet Take 1 tablet every day by oral route for 90 days. 2024 active Not Available Not Available Not Avai lable cholecalcifer ol (vitamin D3) 125 mcg (5,000 unit) capsule Take 1 capsule every day by oral route. 2024 active Not Available Not Available Not Avai lable Vitals Date Recorded Body height Heart rate Respiratory rate Body temperature Body mass index (BMI) Body weight Systolic And Diastolic Provider Name and Address Organization Details Last Updated DateTime 5 157.48 cm 71 /min 16 /min 97.7 [degF] 35.5 kg/m2 28068.9 2 g 131/76 mm[Hg] [facility] 5 16:26:47 Date Recorded Body temperature Respiratory rate Body height Body mass index (BMI) Body weight Heart rate Systolic And Diastolic Provider Name and Address Organization Details Last Updated DateTime 4 97.4 [degF] 16 /min 157.48 cm 35.3 kg/m2 04494.3 3 g 73 /min 154/88 mm[Hg] [facility] 4 15:14:42 Date Recorded Body height Heart rate Respiratory rate Body temperature Body mass index (BMI) Body weight Systolic And Diastolic Provider Name and Address Organization Details Last Updated DateTime 4 157.48 cm 93 /min 16 /min 97.4 [degF] 34.4 kg/m2 12497.3 7 g 127/90 mm[Hg] [facility] 4 15:31:00 Social History Question Answer Notes LastModified by Organizat ion Details LastModified Time Tobacco Smoking Status [facility] 14:33:29 Do You Have An Advance Directive? No Information n ot available 01/31/2024 Do You Wear A Helmet When Biking? No Information not available 01/31/2024 Are You Blind Or Do You Have Difficulty Seeing? No Information n ot available 01/31/2024 Is Blood Transfusion Acceptable In An Emergency? Yes Information not available 01/31/2024 What Is Your Level Of Caffeine Consumption? None [email or web address] Information not available 01/31/2024 What Type Of Water Leak Repairer Do You Use? None Information not available 01/31/2024 What Is Your Code Status? Full Code Information not available 01/31/2024 In The 14 Days Before Symptom Onset, Have You Had Close Contact With A Laboratory-confirm ed COVID-19 While That Case Was Ill? No Information n ot available 01/31/2024 In The 14 Days Before Symptom Onset, Have You Had Close Contact With A Person Who Is Under Investigation For COVID-19 While That Person Was Ill? No [email or web address] Information not available 01/31/2024 Have You Been To An Area Known To Be High Risk For COVID-19? No [email or web address] Information not available 01/31/2024 Are You Deaf Or Do You Have Serious Difficulty Hearing? No Information not available 01/31/2024 What Type Of Diet Are You Following? REGULAR Information n ot available 01/31/2024 Have You Processed Blood Or Body Fluids From An Ebola Virus Disease Patient Without Appropriate PPE? No [email or web address] Information not available 01/31/2024 Do You Reside In Or Have You Traveled To An Area Where Ebola Virus Transmission Is Active? No [email or web address] Information not available 01/31/2024 What Is The Highest Grade Or Level Of School You Have Completed Or The Highest Degree You Have Received? [id number] Information not available 01/31/2024 Have There Been Any Changes To Your Family Or Social Situation? No Information no t available 01/31/2024 What Is The Fluoride Status Of Your Home? Unknown Information not available 01/31/2024 Are There Any Guns Present In Your Home? No Information not available 01/31/2024 Do You Use Insect Repellent Routinely? No Information not available 01/31/2024 What Was The Date Of Your Most Recent Tobacco Screening? 01/11/2025 Information not available 01/11/2025 How Many Children Do You Have? 2 Information not available 01/31/2024 Are There Any Occupational Health Risks Where You Work? Yes Information not available 01/31/2024 Do You Have Any Pets? No Information not available 01/31/2024 Do You Use Protection During Sex? No Information not available 01/31/2024 What Is Your Relationship Status? Single Information not available 01/31/2024 Do You Use Your Seat Belt Or Car Seat Routinely? Yes Information not available 01/31/2024 Are You Sexually Active? Yes [email or web address] Information not available 01/31/2024 Do You Have Smoke And Carbon Monoxide Detectors In Your Home? Yes Information not available 01/31/2024 Are You Passively Exposed To Smoke? No Information no t available 01/31/2024 What Types Of Sporting Activities Do You Participate In? No Information not available 01/31/2024 Do You Use Sunscreen Routinely? Yes Information not available 01/31/2024 Do You Have Difficulty Walking Or Climbing Stairs? No Information not available 01/31/2024 Sex: Unknown Functional Status Question Answer Note LastModified by Organizat ion Details LastModified Time Do you use any illicit or recreational drugs? No [email or web address] Information not available 01/31/2024 Do you or have you ever used any other forms of tobacco or nicotine? No Information not available 01/31/2024 What is your level of alcohol consumption? None [email or web address] Information not available 01/31/2024 Are you currently employed? Yes [employer] [employer] [email or web address] Information not available 01/31/2024 Do you have transportation difficulties? No Information not available 01/31/2024 Do you have difficulty doing errands alone? No Information not available 01/31/2024 Are you able to care for yourself independently? 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 No Information not available 01/31/2024 What is your exercise level? Occasional [email or web address] Information not available 01/31/2024 Mental Status Question Answer Note LastModified by Organizat ion Details LastModified Time Do you feel stressed (tense, restless, nervous, or anxious, or unable to sleep at night)? [id number] Information not available 01/31/2024 Do you have difficulty concentrating, remembering or making decisions? No Information no t available 01/31/2024 Family History Relationship Description Onset Age of this Age Resolved Age Notes LastModified by Organization Details LastModified Time Sister Kidney disease [email or web address] Not available 2024 15:47:14 Sister Hypertensive disorder [email or web address] Not available 2024 15:47:14 Sister Malignant neoplasm of breast [email or web address] Not available 2024 15:47:14 Mother Hypertensive disorder [email or web address] Not available 2024 15:47:14 Mother Heart disease [email or web address] Not available 01/30 14:32:05 Mother Family history of stroke [email or web address] Not available 2024 15:47:14 Paternal Grandfather Heart disease [email or web address] Not available 01/30 14:32:05 Medical History Condition Response Vision or Eye Problems Hypertension Y Gynecological History Statement/Question Response Date of Last Pap Smear 06/07/2018 Date of Last Mammogram 02/15/2024 Date of Last Colonoscopy 06/07/2016 Most Recent Bone Density 02/14/2024 Obstetrics History GPAL:G 4 P 0 1 0 3 Type Value Premature 1 Living 3 Total 4 Immunizations Vaccine Type Date Status Note Provider Nam e and Address Organization Details Recorded Time influenza, unspecified formulation 4 completed Goldie Wagg[facility] 01/31/2024 14:30:13 COVID-19, mRNA, LNP-S, PF, 30 mcg/0.3 mL dose 0 completed Adri Velasco [facility] 01/31/2024 15:58:43 COVID-19, mRNA, LNP-S, PF, 30 mcg/0.3 mL dose 1 completed Adri Velasco [facility] 01/31/2024 15:58:54 COVID-19, mRNA, LNP-S, PF, monroe-sucrose, 10 mcg/0.3 mL 3 completed Adri Velasco [facility] 01/31/2024 16:00:54 Pneumococcal conjugate PCV21, polysaccharide QKA803 conjugate, PF 5 completed Javier Nava MD [address] [facility] [address], [place], [address], [facility] 02/14/2025 00:37:50 Tdap 5 completed Javier Nava MD [address] [facility] [address], [place], [address], [facility] 02/14/2025 00:37:50 Past Encounters Encounter ID Performer Location Encounter Start Date Encounter Closed Date Diagnosis/Indication Diagnosis SNOMED-CT Code Diagnosis ICD10 Code Diagnosis IMO Codes Diagnosis Note [id number] Javier Nava MD [facility], [facility] [address] [facility] [address] [place] [address] 01/31/2024 13:45:01 01/31/2024 16:02:53 Precordial pain 61481960 R07.2 Pt has a strong family history of premature coronary artery disease She had an exercise nuclear stress test on 01/26/22 that is negative ischemia.P t is under management of Dr Jessica Larson 01/26/22 Exercise nuclear stress test Clinically positive for shortness of breath. Electrocar diographic ally negative treadmill test for ischemia. Adequate exercise capacity. Martinez Treadmill Score is 7, which indicates minimal risk. Blood pressure response was normal. Blood pressure at baseline was elevated. Normal myocardial perfusion SPECT imaging. Normal wall motion with an ejection fraction of 81%. 08/11/18 stress echo: Clinically negative. Electrocar diographic ally negative treadmill test for ischemia. Adequate exercise capacity. Exercised for 9 minutes on Mart Protocol achieving heart rate of 183 beats per minute or 112 % of predicted maximum heart rate and 10.3 met workload. Echocardio graphicall y negative for ischemia. Martinez Treadmill Score is 9 , which indicates low risk. Blood pressure response was normal. The quality of this study is good . Definity was used. Stress echocardio gram shows overall low risk for a cardiac event. Essential hypertension 95349587 I10 Dr Larson start pt on Lasix 20 mg PRN for edemaOn the days that she uses Lasix she will hold the triamteren e hydrochlor othiazide. She will continue the Losartan and Kcl Edema of l ower extremity 445402645 R60.0 particular ly after working a long shift (Pt works at [employer])Aditi fisher was started on Lasix 20 mg PRN swelling. Once the swelling resolves, pt will resume the Triamteren e-Hydrochl orothiazid e. She will continue to use knee-high compressio n stockings. -- will need to need to restrict daily Sodium intake to between 1-2 grams of Sodium intake per 24 hours-- examples of salty foods include: smoked salmon, canned green beans, chicken noodle soups, TV dinners, salted nuts, chips, shaw, Pepperoni, Parmesan cheese, Ramen noodles, Sauerkraut , dill pickles, canned tomato sauce, etc. Fatigue 88236706 R53.83 and feeling cold.Pt was found anemia w/ Hb 10.5 on 12/18/2021 .No other labwork since Hyperlipid emia screening 553374624 Z13.220 Pt had lipid panel on 12/31/2023 .Total Chol 140HDL 35LDL 94Trig 55 Screening mammography 843128 Z12.31 Pt last mammogram was on 10/2021 Body mass index 30+ - obesity 472559473 Z68.35 -- will advise weight loss;-- pt's BMI today is 35.3 (ideal is between 20-25) Hepatitis C screening 41 1388766 Z11.59 HIV screening 785547476 Z11.4 CDC recommends that everyone between the ages of 13 and 64 get tested for HIV at least once as part of routine health care. Active or passive immunization 447807805 Z23 Screening for malignant neoplasm of colon 518985705 Z12.11 Pt reported on 01/31/24 that she had a normal screening colonoscop y when she was 56 y/o & was told she needs to repeat it 10 years from then at 66 y/o.. Screening for malignant neoplasm of breast 985054680 Z12.31 Gynecologi c examination 88342460 Z01.419 Screening for osteoporosis 035381309 Z13.820 [id number] Javier Nava MD [facility], [place] [id number] [facility] ,[address] [address] 02/28/2024 14:51:53 02/28/2024 16:33:54 Adult health examination 021178128 Z00.00 Anemia 039937540 D64.9 -- chec labs within 2- 3 weeks from 02/28/24 Precordial pain 56221915 R07.2 Pt has a strong family history of premature coronary artery disease She had an exercise nuclear stress test on 01/26/22 that is negative ischemia.Aditi fisher is under management of Dr Jessica Larson 01/26/22 Exercise nuclear stress test Clinically positive for shortness of breath. Electrocar diographic ally negative treadmill test for ischemia. Adequate exercise capacity. Martinez Treadmill Score is 7, which indicates minimal risk. Blood pressure response was normal. Blood pressure at baseline was elevated. Normal myocardial perfusion SPECT imaging. Normal wall motion with an ejection fraction of 81%. 08/11/18 stress echo: Clinically negative. Electrocar diographic ally negative treadmill test for ischemia. Adequate exercise capacity. Exercised for 9 minutes on Mart Protocol achieving heart rate of 183 beats per minute or 112 % of predicted maximum heart rate and 10.3 met workload. Echocardio graphicall y negative for ischemia. Martinez Treadmill Score is 9 , which indicates low risk. Blood pressure response was normal. The quality of this study is good . Definity was used. Stress echocardio gram shows overall low risk for a cardiac event. -- spontaneou sly resolved Essential hypertension 91902957 I10 Dr Larson start pt on Lasix 20 mg PRN for edemaOn the days that she uses Lasix she will hold the triamteren e hydrochlor othiazide. She will continue the Losartan and Kcl Edema of l ower extremity 932797046 R60.0 particular ly after working a long shift (Pt works at [employer])Aditi fisher was started on Lasix 20 mg PRN swelling. Once the swelling resolves, pt will resume the Triamteren e-Hydrochl orothiazid e. She will continue to use knee-high compressio n stockings. -- will need to need to restrict daily Sodium intake to between 1-2 grams of Sodium intake per 24 hours-- examples of salty foods include: smoked salmon, canned green beans, chicken noodle soups, TV dinners, salted nuts, chips, shaw, Pepperoni, Parmesan cheese, Ramen noodles, Sauerkraut , dill pickles, canned tomato sauce, etc. Fatigue 54389819 R53.83 and feeling cold.Pt was found anemia w/ Hb 10.5 on 12/18/2021 .No other labwork since Screening mammography 24 191026 Z12.31 Pt last mammogram was on 10/2021 Body mass index 30+ - obesity 615441955 Z68.34 -- will advise weight loss; pt lost 5 # since her last visit-- pt's BMI today is 34.4 (ideal is between 20-25) Hepatitis C screening 41 4552399 Z11.59 -- tested negative for Hepatitis C on HIV screening 949244914 Z11.4 -- tested negative for HIV on 02/14/24 Active or passive immunization 079378208 Z23 Screening for malignant neoplasm of colon 022096962 Z12.11 Pt reported on 01/31/24 that she had a normal screening colonoscop y when she was 56 y/o & was told she needs to repeat it 10 years from then at 66 y/o.. Screening for malignant neoplasm of breast 377328089 Z12.31 -- mammogram done on 02/15/24-- pt reported on 02/28/24 that she has appt for diagnostic imaging of bilateral breast Gynecologi c examination 37707749 Z01.419 Osteopenia 933559550 M85 .80 -- start Citracal 600 mg 1 pill twice a day-- if she is not already on daily vit D, take otc vit D 2,000 units daily (in addition to the vit D in Citracal). -- weight bearing exercise (like walking, dancing, low-impact aerobics, elliptical training machines, & stair climbing). -- repeat Bone density in 2 years from 02/15/24 [id number] Javier Nava MD [facility], [place] [address] [facility] ,[address] [address] 01/11/2025 15:46:49 01/11/2025 17:12:19 Anemia 953893684 D64.9 -- check labs within 5 days from 01/11/25 Essential hypertension 62351295 I10 Dr Larson start pt on Lasix 20 mg PRN for edema -- check labs within 5 days from 01/11/25 Edema of l ower extremity 193904738 R60.0 particular ly after working a long shift (Pt works at [employer])P t was started on Lasix 20 mg PRN swelling. Once the swelling resolves, pt will resume the Triamteren e-Hydrochl orothiazid e. She will continue to use knee-high compressio n stockings. -- will need to need to restrict daily Sodium intake to between 1-2 grams of Sodium intake per 24 hours-- examples of salty foods include: smoked salmon, canned green beans, chicken noodle soups, TV dinners, salted nuts, chips, shaw, Pepperoni, Parmesan cheese, Ramen noodles, Sauerkraut , dill pickles, canned tomato sauce, etc. -- check labs within 5 days from 01/11/25 Osteopenia 083055988 M85 .80 M85.89 79800815 -- start Citracal 600 mg 1 pill twice a day-- if she is not already on daily vit D, take otc vit D 2,000 units daily (in addition to the vit D in Citracal). -- weight bearing exercise (like walking, dancing, low-impact aerobics, elliptical training machines, & stair climbing). -- repeat Bone density in 2 years from 02/15/24 Body mass index 30+ - obesity 568515838 Z68.34 -- will advise weight loss; pt lost 5 # since her last visit-- pt's BMI today is 34.4 (ideal is between 20-25) Hepatitis C screening 41 3681718 Z11.59 -- tested negative for Hepatitis C on 02/14/24 HIV screening 449461761 Z11.4 -- tested negative for HIV on 02/14/24 Active or passive immunization 173199893 Z23 Screening for malignant neoplasm of colon 533339673 Z12.11 Pt reported on 01/31/24 that she had a normal screening colonoscop y when she was 56 y/o & was told she needs to repeat it 10 years from then at 66 y/o.. Screening for malignant neoplasm of breast [id number] Z12.31 -- mammogram done 08/29/24 Right inguinal pain [id number] R10.31 [id number] Abnormal v aginal bleeding [id number] N93.9 [id number] -- check labs within 5 days from 01/11/25 Health Concerns Section Related Observation LastModified by Organization Detai ls LastModified Time None Recorded Concern Status LastModified by Organization Details LastModified Time None Recorded Advance Directives Directive N: Payers Insurance Date Sequence Insurance Name Policy Number Policy [place] Covered Member ID Mat[place] Member ID Guarantor Name 01/23/2025 1 [facility] [id number] Sarah Calvillo [id number] Sarah Calvillo Notes Date Note Type Note Provider Name and Address Organization Details Recorded Time 01/31/2024 text/html Pt comes in to get acquainted medically. Pt feels well and has no c/o. Pt has no new sx and no increasing sx. Patient denies any jaw or neck discomfort, left arm pain/left arm discomfort, chest discomfort/pain, diaphoresis, breathing symptoms/chest tightness, indigestion sx, n/v, any angina equivalent symptoms, etc. MD Danica Franco [facility] [address], [place], [address], [facility] 01/31/2024 15:59:33 02/28/2024 text/html Pt comes in for f/u of f/u of labs, Anemia, HTN, Osteopenia and weight. Pt feels well and has no c/o. Pt has no new sx and no increasing sx. Patient denies any jaw or neck discomfort, left arm pain/left arm discomfort, chest discomfort/pain, diaphoresis, breathing symptoms/chest tightness, indigestion sx, n/v, any angina equivalent symptoms, etc. MD Danica Franco [facility] [address], [place], [address], [facility] 02/28/2024 16:34:25 01/11/2025 text/html Pt comes in w/ c/o Rt groin pain and vaginal bleeding. Pt is also here for f/u of Anemia, HTN, Osteopenia, and weight. Pt feels well and has no c/o. Pt has no new sx and no increasing sx. Patient denies any jaw or neck discomfort, left arm pain/left arm discomfort, chest discomfort/pain, diaphoresis, breathing symptoms/chest tightness, indigestion sx, n/v, any angina equivalent symptoms, etc. MD Danica Franco [facility] [address], [place], [address], [facility] 01/11/2025 17:13:24 OBGyn Episode No OBEpisode recorded.
--- OUTSIDE RECORDS SUMMARY | 2025-03-28 01:34 | XMS_ITS | Encounter Summary ---
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 Name Role Phone Jessica Larson MD Unavailable [phone] Javier Campuzano MD Primary Care Provider [phone] Encounter Details Date Type Department Care Team (Latest Contact Info) Description 03/14/2025 Results Follow-Up [facility], [facility] [address] [place], [place] [id number] Teagan Landry, [place] [address] LIPID PANEL, COMPREHENSIVE METABOLIC PANEL Social History Tobacco Use Types Packs/Day Years Used Date Smoking Tobacco: Never Smokeless Tobacco: Never Alcohol Use Standard Drinks/Week Comments Never 0 (1 standard drink = 0.6 oz pur e alcohol) Comments No Sex and Gender Information Value Date Recorded Sex Assigned at Female 01/15/2025 11:13 AM CDT Legal Sex Female 9:37 PM CDT Gender Identity Not on file Sexual Orientation Not on file 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 Not on file Not on file documented as of this encounter Plan of Treatment Upcoming Encounters Date Type Department Care Team (Late st Contact Info) Description 09/17/2025 2:30 PM CDT Office Visit [facility] THREE [facility], [facility] [address] [place], [place] [id number] Lorna Montes APRN [facility] [address] [place], [place] [id number] documented as of this encounter Visit Diagnoses Not on filedocumented in this encounter Care Teams Parquet Floor Layer'S Helper Relationship Specialty Start Date End Date Javier Campuzano MD [address] [facility] [address] [place] [phone] PCP - General 02/07/24 Jessica Larson MD [facility]. [facility] [address] [place] [address] [place] Photograph Enlarger CARDIOVASCULAR DISEASE 07/15/18 documented as of this encounter
--- OUTSIDE RECORDS SUMMARY | 2025-03-28 01:34 | XMS_ITS | Encounter Summary ---
Author Organization [facility] Address [facility] [place] [address] Care Team Providers Care Mold Making Supervisor Name Role Phone Javon Rivera MD Primary Care Provider [phone] Jessica Larson MD Unavailable [phone] Javier Campuzano MD Primary Care Provider [phone] Encounter Details Date Type Department Care Team (Late Contact Info) Description 12/01/2019 Prep for Procedure [facility] Pre-Admission [facility] [address] [place], [place] [id number] Belle Gaitan MD 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 No / Unsure 12/01/2019 11:14 AM CDT documented as of this encounter Plan of Treatment Upcoming Encounters Date Type Department Care Team (Late Contact Info) Description 09/17/2025 2:30 PM CDT Office Visit [facility] [address] [facility] [address], [place] [address] [place] [address] Lorna Montes APRN Three [facility]. [address] [place], [place] [address] documented as of this encounter Results * PRE-SURGICAL/PRE-PROCEDURE CORONAVIRUS (COVID 19) (12/09/2019 11:55 AM CDT) CORONAVIRUS SARS COV 2 PCR (RESP) NOT DETECTED NOT DETECTED 12/10/2019 9:53 PM CDT [facility] Comment: A Not Detected (negative) test result for this test means that SARS- CoV-2 RNA was not present in the specimen above the limit of detection. A negative result does not rule out the possibility of COVID-19 and should not be used as the sole basis for treatment or patient management decisions. If COVID-19 is still suspected, based on exposure history together with other clinical findings, re-testing should be considered in consultation with public health authorities. Laboratory test results should always be considered in the context of clinical observations and epidemiological data in making a final diagnosis and patient management decisions. Please review the Fact Sheets and FDA authorized labeling available for health care providers and patients using the following websites: https://www.[employer].com/home/Covid-19/HCP/NAAT/fact-sheet2 https://www.[employer].com/home/Covid-19/Patients/NAAT/ fact-sheet2 This test has been authorized by the FDA under an Emergency Use Authorization (EUA) for use by authorized laboratories. Due to the current public health emergency, [facility] is receiving a high volume of samples from a wide variety of swabs and media for COVID-19 testing. In order to serve patients during this public health crisis, samples from appropriate clinical sources are being tested. Negative test results derived from specimens received in non-commercially manufactured viral collection and transport media, or in media and sample collection kits not yet authorized by FDA for COVID-19 testing should be cautiously evaluated and the patient potentially subjected to extra precautions such as additional clinical monitoring, including collection of an additional specimen. Methodology: Nucleic Acid Amplification Test (NAAT) includes PCR or TMA Additional information about COVID-19 can be found at the [employer] website: www.Rackup.Actifi/Covid19. Test performed at [facility] [place] [address] [place] [address] Director: DEVAN SMITH DO,MPH NASOPHARYNGEAL SWAB / Unknown 12/09/2019 11:55 AM CDT us Belle Gaitan MD MICROBIOLOGY - GENERAL ORDER STEFAN Final Result [facility] [address] [address] documented in this encounter Visit Diagnoses Diagnosis Preop examination- Primary Preoperative examination, unspecified documented in this encounter Additional Health Concerns Infection Onset Date Last Indicated Resolved Time COVID-19 Rule Out 12/09/2019 12/09/2019 12/10/2019 9:53 PM CDT documented as of this encounter Care Teams Mold Making Supervisor Relationship Specialty [place] [address] [place] [address] PCP - General 12/31/16 02/06/24 Javier Campuzano MD [address] [place] [address] [address] [place] [address] PCP - General 02/07/24 Jessica Larson MD Three [facility]. [place] [place], [place] [phone] [place] Wire Preparation Machine Tender CARDIOVASCULAR DISEASE 07/15/18 documented as of this encounter
--- OUTSIDE RECORDS SUMMARY | 2025-03-28 01:34 | XMS_ITS | Encounter Summary ---
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 No / Unsure 01/08/2022 1:27 PM CDT documented as of this encounter Plan of Treatment Upcoming Encounters Date Type Department Care Team (Late Contact Info) Description 09/17/2025 2:30 PM CDT Office Visit [facility], [address] [address] Lorna Montes, SERENA Three [facility]. [address] [place], [place] [address] documented as of this encounter Procedures Procedure Name Priority Date/Time Associated Diagnosis Comments COMPREHENSIVE METABOLIC PANEL Routine 03/13/2025 LIPID PANEL Routine 03/13/2025 CBC (OUTSIDE LAB) Routine 12/18/2021 AST/SGOT Routine 12/18/2021 BASIC METABOLIC PANEL Routine 12/18/2021 LIPID PANEL Routine 12/18/2021 ALBUMIN, SERUM Routine 12/18/2021 ALT/SGPT Routine 12/18/2021 documented in this encounter Results * (ABNORMAL) COMPREHENSIVE METABOLIC PANEL (03/13/2025) SODIUM S/P/B 137 GLUCOSE 101 mg/dL AST 33 BUN 25 CREATININE S/P/B 1.16(A) 0.5 - 1.0 CALCIUM S/P/B 9.3 POTASSIUM S/P/B 3.6 CHLORIDE S/P/B 99 ALT 15 GFR ESTIMATE 47 us Default History Genericprovider LABORATORY Edited Result - Final * LIPID PANEL (03/13/2025) CHOLESTEROL 161 TRIGLYCERIDES 183 HDL 28 DIRECT LDL 95 us Default History Genericprovider LABORATORY Edited Result - Final * ALBUMIN, SERUM (12/18/2021) ALBUMIN S/P/B 3.9 3.5 - 5.0 12/18/2021 us Doc [facility] Abstract LABORATORY Final Result * ALT/SGPT (12/18/2021) ALT 8 12/18/2021 us Doc [facility] LABORATORY Final Result * AST/SGOT (12/18/2021) Pathologist [facility] AST 10 12/18/2021 us Doc [facility] Abstract LABORATORY Final Result * LIPID PANEL (12/18/2021) Pathologist [facility] CHOLESTEROL 148 HDL 36 TRIGLYCERIDES 72 LDL (CALCULATED) 96 12/18/2021 us Doc [facility] Abstract LABORATORY Edited Resul t - Final * CBC (OUTSIDE LAB) (12/18/2021) Pathologist [facility] WBC 8.3 HGB 10.5 HCT 35.7 PLT 259 12/18/2021 us Doc [facility] Abstract LAB-OUTSIDE/ABSTRACTED Final Result * BASIC METABOLIC PANEL (12/18/2021) Pathologist [facility] SODIUM S/P/B 140 POTASSIUM S/P/B 3.9 CO2 30 CHLORIDE S/P/B 102 GLUCOSE 70 mg/dL CALCIUM S/P/B 9.2 BUN 26 CREATININE S/P/B 0.90 0.5 - 1.0 12/18/2021 us Doc [facility] Abstract LABORATORY Final Result documented in this encounter Visit Diagnoses Not on filedocumented in this encounter Care Teams Astrochemist Relationship Specialty Start Date End Date Javon Rivera MD [address] [place] [address] PCP - General 12/31/16 02/06/24 Javier Campuzano MD [address] [facility] [address] [place] [address] PCP - General 02/07/24 Jessica Larson MD Three [facility]. [address] [place], [place] [id number] [place] Rotary Engraver CARDIOVASCULAR DISEASE 07/15/18 documented as of this encounter
--- OUTSIDE RECORDS SUMMARY | 2025-03-28 01:34 | XMS_ITS | Encounter Summary ---
Author Organization [facility] Address [facility] [place] [address] Care Team Providers Care Checkering Machine Adjuster Name Role Phone Jessica Larson MD Unavailable [phone] Javier Campuzano MD Primary Care Provider [phone] Encounter Details Date Type Department Care Team (Late st Contact Info) Description 03/14/2025 [employer] Message Enc [facility], [facility] [address] [place], [place] [phone] [facility] Provider Labs reviewed Social History Tobacco Use Types Packs/Day Years [...] 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, [facility] [address] [place], [place] [phone] Lorna Montes APRN Three [facility]. [address] [place], [place] [id number] documented as of this encounter Visit Diagnoses Not on filedocumented in this encounter Care Teams Checkering Machine Adjuster Relationship Specialty Start Date End Date Javier Campuzano MD [address] [facility] [address] [place] [address] PCP - General 02/07/24 Jessica Larson MD [facility] [address] [place] [address] [place] Job Compositor CARDIOVASCULAR DISEASE 07/15/18 documented as of this encounter
--- OUTSIDE RECORDS SUMMARY | 2025-03-28 01:34 | XMS_ITS | Encounter Summary ---
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 [address] [place], [place] [phone] documented as of this encounter Visit Diagnoses Not on filedocumented in this encounter Care Teams Preschool Assistant Director Relationship Specialty Start Date End Date Javier Campuzano MD [address] [facility] [address] [place] [address] PCP - General 02/07/24 Jessica Larson MD Three [facility]. [address] [place] [address] [place] Cafeteria Cashier CARDIOVASCULAR DISEASE 07/15/18 documented as of this encounter
--- OUTSIDE RECORDS SUMMARY | 2025-03-28 01:34 | XMS_ITS | Patient Health Record ---
Author Organization [facility] Address [address] [place], [place] [id number] Care Team Providers Care District Or District Office Director Name Role Phone ALETA CLINTON Unavailable [phone] Javon Rivera Unavailable Unavailable Reason For Referral No Information Plan Of Treatment No Information Insurance Providers Payer Name Payer Address Payer Phone Subscriber Number Group Number Insured Name Patient Relationship to Insured Coverage Start Date Coverage End Date [employer] [address] [place] [phone] [id number] CHASITY [id number] Self - patient is the insured
--- OUTSIDE RECORDS SUMMARY | 2025-03-28 01:34 | XMS_ITS | Data Portability ---
Author Organization [facility] [employer] , [facility]_Jose M Address [address] [place] [address] Assessment Encounter Date Assessment Date Assessment LastModified by Organization Details LastModified Time 08/03/2024 08/03/2024 63-year-old female with a history of leiomyoma of the uterus presenting with postmenopausal bleeding. Given her history of fibroids, this is the probable etiology of her bleeding. A detailed discussion highlighted the potential need for further imaging and procedural interventions tailored towards conservative management options, given her preference to avoid a hysterectomy. [email or web address] Not available 08/03/2024 12:38:41 Plan of Treatment Reminders Order Date Submit Date Provider Last Modified By Organization Details Last Modified Time Details Appointments None recorded. Lab biopsy, tissue 2023 [place] [facility], [address] [place], [address], 4 21:51:34 FSH (follicle-s timulating hormone), serum 2023 ERIN [facility], [address] [place] [address], [address], 4 11:34:20 estradiol, serum 2023 024 [place] [facility], [address] [place], [address], 4 07:20:32 pap, LB 2023 024 [place] [facility], [address] [place], [address], 4 19:54:10 unlisted lab - HPV plus CT/GC/trich 2023 024 ERIN [place] [facility], [address] [place], [address], 4 09:31:56 Referral None recorded. Procedures None recorded. Surgeries None recorded. Imaging MRI, pelvis, w/wo contrast - No history of renal issues; in preparation for UAE 2024 025 [facility], [address] [facility], [place], [address], 5 15:23:46 US, transvagina l 2023 024 ERIN Not available 18:30:19 Medication Orders None recorded. Patient TargetsNo targets recorded. Patient Instructions Encounter Date Encounter Id Patient Instructions Last Modified By Organization Details Last Modified Time 02/14/2024 [id number] A healthy lifestyle: care instructions Not available 02/14/2024 09:37:25 Following the [employer] Food Guide: Care Instructions Not available 02/14/2024 09:37:25 exercise program : getting started Not available 02/14/2024 09:37:25 learning about breast cancer screening Not available 02/14/2024 09:37:25 mammogram: about this test Not available 02/14/2024 09:37:25 03/06/2024 [id number] vaginal bleeding after menopause: care instructions [email or web address] Not available 03/06/2024 20:49:20 01/30/2025 [id number] vaginal bleeding after menopause: care instructions Not available 02/05/2025 15:15:26 Reason for Referral None Reported. Results Created Date Observation Date Name Description Value Unit Range Abnormal Flag Note LastModifiedBy Organization Detail LastModifiedTime 02/16/20 24 02/16/2024 ESTRA DIOL estradiol 17 pg/mL normal Refer ence Range Folli cular Phase : [...] sensi tive, LCMSM S assay is recom adama d (orde r code 48275 ). Addis santillan note: patie nts being treat ed with the drug fulve stran t (Fasl odex( R)) have demon strat ed signi fican t inter feren ce in immun oassa y metho ds for estra diol measu remen t. The cross react ivity could lead to false ly eleva marianna estra diol test resul ts leadi ng to an inapp ropri ate clini lisha asses sment of estro gen statu s. [facility] order code [id number] -Estr adiol , Ultra sensi tive LC/MS /MS demon strat es negli gible cross react ivity with fulve stran t. NO COLLE CTION DATE RECEI CHANTEL. WE HAVE USED THE DATE THE SPECI MEN WAS RECEI CHANTEL BY THIS LABOR ATORY THE COLLE CTION DATE. IF THIS IS INCOR RECT, ADDIS Santillan CONTA CT CLIEN T SERVI ZAIRE. PHONE NUMBE R: [phone] Not Available [facility] [address] , [place], [address], 02/16/2024 07:20:32 02/14/20 24 02/15/2024 FSH FSH 62.2 mIU/m L Refer ence Range s are for femal es aged 18 years - Adult Ada l Menst ruati ng Femal e: Folli cular phase : 2.5-1 0.2 mIU/m L Mid-C ycle Peak: 3.4-3 3.4 mIU/m L Lutea l phase : 1.5-9 .1 mIU/m L Pregn ant: <0.3 mIU/m L Post- menop ausal : 23.0- 116.6 mIU/m L Not Available [address], [address], 02/15/2024 11:34:20 02/14/20 24 02/15/[address]/GC /TRIC H trichomonas vaginalis TRICH neg negati ve normal Not Available [address], [address], 02/16/2024 09:31:56 02/14/2002/15/[address]/GC /TRIC H chlamydia trachomatis CT neg negati ve normal This repor t is inten ded for us in clini lisha monit oring and manag ement of patie nts. It is not inten ded for use in medic al-le gal appli catio n. Not Available [address], [address], 02/16/2024 09:31:56 02/14/2002/15/[address]/GC /TRIC H neisseria gonorrhoeae GC neg negati ve normal This repor t is inten ded for us in clini lisha monit oring and manag ement of patie nts. It is not inten ded for use in medic al-le gal appli catio n. Not Available [place] [facility] [address] [place] [address], [address], 02/16/2024 09:31:56 02/14/2002/15/[address]/GC /TRIC H HPV high risk Negati ve negati ve normal The HPV High Risk assay is inten ded for use as co-te sting with cytol ogy and not as a subst itute for regul ar cervi lisha cytol ogy scree mingo. This assay is not inten ded for use as a scree mingo devic e for women under age 30 with ada l cervi lisha cytol ogy. Not Available [facility] [address] [place], [address], 02/16/2024 09:31:56 02/14/2002/17/2024 THINP REP TIS PAP clinical information: normal None given Not Available [address] [address] [place], [address], 02/17/2024 19:54:10 02/14/2002/17/2024 THINP REP TIS PAP LMP: normal NONE GIVEN Not Available [address] [address] [place], [address], 02/17/2024 19:54:10 02/14/2002/17/2024 THINP REP TIS PAP prev. Pap: normal NONE GIVEN Not Available [address] [address] [place], [address], 02/17/2024 19:54:10 02/14/2002/17/2024 THINP REP TIS PAP prev. BX: normal NONE GIVEN Not Available [address] [address] [place], [address], 02/17/2024 19:54:10 02/14/2002/17/2024 THINP REP TIS PAP source: normal Cervi x Not Available [address] [address] [place], [address], 02/17/2024 19:54:10 02/14/2002/17/2024 THINP REP TIS PAP statement of adequacy: normal Satis facto ry for evalu ation . Endoc ervic al/tr ansfo rmati on zone compo nent prese nt. Not Available [address] [address] [place], [address], 02/17/2024 19:54:10 02/14/20 24 02/17/2024 THINP REP TIS PAP interpretati on/result: normal Cytol ogy Resul ts: Negat micheline for intra epith elial lesio n or nathanael lieberman . Not Available [address] [address] [place], [address], 02/17/2024 19:54:10 02/14/20 24 02/17/2024 THINP REP TIS PAP comment: normal This Pap test has been evalu ated with compu ter keyonna marianna techn ology . Not Available [address] [address] [place], [address], 02/17/2024 19:54:10 02/14/20 24 02/17/2024 THINP REP TIS PAP cytotechnolo gist: normal BES, CT( CP) CT scree mingo locat ion: [address] [address] [place] [address] Not Available [address] [place], [address], 02/17/2024 19:54:10 02/14/20 24 02/17/2024 THINP REP TIS PAP comment EXPLA NATOR Y NOTE: The Pap is a scree mingo test for cervi lisha cance r. It is not a diagn ostic test and is subje ct to false negat micheline and false posit micheline resul ts. It is most relia ble when a satis facto ry sampl e, regul aaron obtai sophie, is submi tted with relev ant clini lisha findi ngs and histo ry, and when the Pap resul t is evalu ated along with histo ramona and curre nt clini lisha infor matio n. Your reque st to have a dupli jenny copy faxed has been marcia valentine ed. Queue d to: [phone] [id number] Not Available [address] [place], [address], 02/17/2024 19:54:10 03/06/20 24 03/09/2024 TISSU E PATHO LOGY clinical information Postm enopa usal bleed ing Not Available [address] [address] [place], [address], 03/09/2024 21:51:34 03/06/20 24 03/09/2024 TISSU E PATHO LOGY pathologist Brook ku M.D., Board Certi fied in Anato danette Patho logy and Clini lisha Patho logy( elect albina millan) Not Available [address] [address] [place], [address], 03/09/2024 21:51:34 03/06/20 24 03/09/2024 TISSU E PATHO LOGY A source Endom etriu m, biops y Not Available [address] [address] [place], [address], 03/09/2024 21:51:34 03/06/20 24 03/09/2024 TISSU E PATHO LOGY A gross description Speci men is recei chantel in 10% [...] rmed at: [facility] [address] [place] [address] [place], [place] [address] Labor atory Direc tor: GENI Ku MD Not Available [facility] [address] [place], [address], 03/09/2024 21:51:34 03/06/20 24 03/09/2024 TISSU E PATHO LOGY A diagnosis Fragm ented inact micheline and/o r weakl y proli ferat micheline endom etriu m with blood . There is no evide nce of malig mio or hyper plasi a ident ified . Not Available [facility] [address], [place], [address], 03/09/2024 21:51:34 03/06/20 24 03/09/2024 TISSU E PATHO LOGY A comment Overa ll, scant endom etria l compo nent. Pleas e corre late and follo w clini bess . Not Available [email or web address] [address], [place], [address], 03/09/2024 21:51:34 03/10/20 24 03/06/2024 US, trans vagin al No observ ation record ed. [email or web address] Sally [address], [place], [address], 03/10/2024 19:49:53 08/03/19 25 08/03/2024 US, obste tric No observ ation record ed. [email or web address] [address], [place], [address], 08/03/2024 13:44:50 08/21/19 25 08/19/2024 MRI pel wwo con [facility] [place] [address] . [facility] [place] [address] Examin ation: MRI PEL WWO CON Exam time: 025 8:53 AM Clinic al histor y: LEIOMY ANA MARIA OF UTERUS Compar melony: No compar melony. Techni que: Multip lanar, multis equenc e MR images of the pelvis were obtain ed before and after admini strati on of contra st. 19 mL of Dotare m admini stered withou t advers e event. Findin gs: Motion artifa ct affect s multip le sequen zaire result ing in degrad ed image qualit y and limiti ng sensit ivity. Findin gs are within the limita tions of motion . The uterus is enlarg ed and bulky measur ing 14.0 x 8.8 x 7.6 cm. Gabriel us myomet rial based mass lesion s are identi fied, demons tratin g low signal on T1 and T2-griselda ghted sequen zaire most consis tent with uterin e fibroi ds. The larges t mass is presen t within the audience coordinator ior body measur ing 5.8 x 4.3 [...] cm that demons trates no signif icant supply chain intern al enhanc ement (serie s 9 [...] muscul ature appear s intact . IMPRES RALPH: 1. Enlarg ed, bulky uterus contai mingo [...] inflam matory proces s. Referr ed By: LAURA TRINIDAD Electr onical ly Signed By: Carlos Alberto Cooper MD on 025 9:15 AM Interp reted By: Carlos Alberto Cooper MD, 025 9:05 AM MRI due to PT still cyclin g at 63yo, 19ml Dotare [facility] [address] [facility], [place], [address], 08/21/2024 10:32:13 Result Notes None recorded. Problems Name Problem SNOMED Code Status Onset Date Resolution Date Notes Provider Name and Address Organization Details Recorded Time Mammogra phy abnormal 519095221 Completed 201202/20/2014 Abnormal mammogra m, unspecif ied; Location : None Progress : Stable Added By: Cheri Fisher Add to Current Problems : NO ProblemS tatus: Resolve Not Available [facility] 2 21:05:58 Sampling of vagina for Papanico laou smear Active 2019 Encounte r for gynecolo gical examinat ion (general ) (routine ) without abnormal findings ; Progress : Stable Added By: Shelia Lion Add to Current Problems : YES ProblemS tatus: Current Not Available [facility] 2 21:54:45 Pelvic and perineal pain 402727505 Active 2019 Pelvic and perineal pain; Progress : Stable Added By: Shelia Lion Add to Current Problems : YES ProblemS tatus: Current Not Available [facility] 2 21:05:58 Postmeno pausal bleeding 84134337 Active 2019 Postmeno pausal bleeding ; Progress : Stable Added By: Cheri Gaitan Add to Current Problems : YES ProblemS tatus: Current Not Available [facility] 2 21:05:58 Uterine leiomyom a 65328136 Active 2019 Leiomyom a of uterus, unspecif ied; Progress : Stable Added By: Cheri Gaitan Add to Current Problems : YES ProblemS tatus: Current Not Available [facility] 2 21:05:59 Intramur al leiomyom a of uterus 83520808 Active 2019 Intramur al leiomyom a of uterus; Progress : Stable Added By: Cheri Gaitan Add to Current Problems : YES ProblemS tatus: Current Not Available [facility] 2 21:05:58 Procedur e on genitour inary system Active 2019 Encounte r for surgical aftercar e followin g surgery on the genitour inary system; Progress : Stable Added By: Jazmin Roland Add to Current Problems : YES ProblemS tatus: Current Not Available [facility] 2 21:05:57 Postoper ative care Active 2019 Encounte r for surgical aftercar e followin g surgery on the genitour inary system; Progress : Stable Added By: Jazmin Roland Add to Current Problems : YES ProblemS tatus: Current Not Available [facility] 2 21:05:58 Polyp of corpus uteri 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 Procedures Surgical History Date Name Laterality Status Provider Name and Address Organization Details Recorded Time 025 Most Recent Bone Density completed Chaitanya Mcdowell [place] [facility] IV 01/30/2025 12:08:52 024 Endometrial Biopsy completed Flaquita Saucedo [place] [facility] IV 03/06/2024 10:50:16 024 Most Recent Mammogram completed Damaso Pelaez [place] [facility] IV 08/02/2024 11:49:07 024 Date of Last Pap Smear completed TIN BOCANEGRA, GEOGRAPHICAL HISTORIAN [address] [facility], [place], [address], [place] [employer] IV 02/17/2024 20:23:15 020 hysteroscopy and endometrial biopsy completed Belle Gaitan MD [address] [facility], [place], [address], [facility] [employer] [facility] IV 02/05/2025 14:57:48 018 Date of Last Colonoscopy completed [facility] [employer] [facility] IV 02/14/2024 09:13:20 ligation of fallopian tube completed [facility] [employer] [facility] 02/14/2024 09:15:37 Appendectomy completed [facility] [employer] [facility] IV 02/14/2024 09:15:42 [facility] [employer] [facility] IV 03/06/2024 10:05:00 D & C [facility] IV 03/06/2024 10:05:00 C Section completed Star Méndez [facility] AD[facility] [employer]IA [facility] IV 08/03/2024 11:00:46 Imaging Results None recorded. Procedure Notes None recorded. Medical Equipment None Reported. Allergies No known drug allergies Medications Name Sig Start Date Stop Date Status Note LastModified by Organization Details LastModified Time losartan 50 mg tablet TAKE 1 TABLET BY MOUTH EVERY DAY active Not Available Not Available No t Available potassium chloride ER 10 mEq capsule,e xtended release 03/06 completed Not Available Not Available Not Available potassium chloride ER 10 mEq tablet,ex tended release TAKE 1 TABLET BY MOUTH EVERY DAY active Not Available Not Available No t Available Flagyl 500 mg tablet 4 PO Now. 04/29 completed Flagyl 500mg Tablet RxNorm: 835596 Allow Substitu tion: True Refill Denied: No Not Available Not Available Not Available furosemid e 20 mg tablet TAKE 1 TABLET (20 MG) DAILY FOR SWELLLIN G 01/30 completed Not Available Not Available Not Available triamtere ne 75 mg-hydroc hlorothia zide 50 mg tablet TAKE 1 TABLET BY MOUTH EVERY DAY active Not Available Not Available No t Available losartan 10/22 completed Losartan 50mg Tablet RxNorm: 355332 Allow Substitu tion: True Refill Denied: No Refill DateOccu rred: 02/21/20 14 Not Available Not Available Not Available Flagyl 4 PO Now. 02/28 completed Flagyl 500mg Tablet RxNorm: 244714 Allow Substitu tion: True Refill Denied: No Not Available Not Available Not Available Klor-Con 10 10/22 completed Klor-Con 10 10mEq Tablets, Extended Release RxNorm: 423359 Allow Substitu tion: True Refill Denied: No Refill DateOccu rred: 02/21/20 14 Not Available Not Available Not Available Vitals Date Recorded Body height Body mass index (BMI) Body weight Systolic And Diastolic Provider Name and Address Organization Details Last Updated DateTime 08/03/2024 157.48 cm 35.3 kg/m2 09023.61 g 130/80 mm[Hg] Star Méndez [facility] [employer] IV 08/03/2024 11:04:01 Date Recorded Body height Body mass index (BMI) Body weight Systolic And Diastolic Provider Name and Address Organization Details Last Updated DateTime 01/30/2025 157.48 cm 35.1 kg/m2 98808.74 g 138/88 mm[Hg] Chaitanya Mcdowell [facility] [employer] IV 01/30/2025 12:16:55 Date Recorded Body weight Body mass index (BMI) Body height Systolic And Diastolic Provider Name and Address Organization Details Last Updated DateTime 02/14/2024 49707.51 g 35.7 kg/m2 157.48 cm 140/88 mm[Hg] Meghan Braga [facility] IV 02/14/2024 09:20:33 Date Recorded Body height Body mass index (BMI) Body weight Body temperature Systolic And Diastolic Provider Name and Address Organization Details Last Updated DateTime 03/06/2024 157.48 cm 35.6 kg/m2 22852.3 6 g 97.6 [degF] 128/78 mm[Hg] Jazmin Le [facility] [employer] IV 10:12:39 Social History Question Answer Notes LastModified by Organizat ion Details LastModified Time Tobacco Smoking Status Never Smoker Meghan wan, [facility] [employer] IV 02/14/2024 09:15:22 If You Are , What Was Your Level Of Alcohol Consumption Prior To ? None Information not available 03/06/2024 Are You Blind Or Do You Have Difficulty Seeing? No Information not available 02/14/2024 Are You Deaf Or Do You Have Serious Difficulty Hearing? No Information not available 02/14/2024 What Type Of Diet Are You Following? REGULAR Information not available 02/14/2024 How Many Children Do You Have? 2 [email or web address] Information not available 08/03/2024 Are There Any Occupational Health Risks Where You Work? No Information not available 03/06/2024 What Is Your Relationship Status? Single Information not available 02/14/2024 Are You Sexually Active? No Information not available 03/06/2024 Sex: Unknown Functional Status Question Answer Note LastModified by Organizat ion Details LastModified Time Do you use any illicit or recreational drugs? No Information not available 02/14/2024 Do you or have you ever used any other forms of tobacco or nicotine? No Information not available 02/14/2024 What is your level of alcohol consumption? 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 Occasional Information not available 02/14/2024 Mental Status None recorded. Family History Relationship Description Onset Age of this Age Resolved Age Notes LastModified by Organization Details LastModified Time Sister Malignant neoplasm of breast [email or web address] z Not available 02/14/2024 09:14:50 Sister Hypertensive disorder Not available 02/07 10:04:59 Mother Hypertensive disorder Not available 02/07 10:04:59 Brother Hypertensive disorder Not available 02/07 10:04:59 Father Hypertensive disorder Not available 02/07 10:04:59 Medical History Condition Response Other Cancer N High Blood Pressure Y Colon Cancer N Cytomegalovirus N Hyperthyroidism N MRSA N Breast Cancer N Herpes (HSV) N Blood Transfusion N Lung Cancer N Depression N Hypothyroidism N Incontinence N Panic Attacks N Neurological Disorder N Deep Vein Thrombosis N Anxiety Disorder N Autoimmune disease N Arthritis N Tuberculosis/Positive PPD N Shingles N Polycystic Ovarian Syndrome N Infertility N Cervical Cancer N Hematuria N Chlamydia N Stroke N Varicosities N Seasonal allergies N Crohn's Disease N Alzheimer's/Dementia N COPD/Emphysema N Endometriosis N HPV/Genital Warts N IBS (Irritable Bowel Syndrome) N History of Abnormal Pap N High Cholesterol N Liver Disease N Kidney Infection N Fibromyalgia N Ulcer N Kidney Disease N HIV N Gallbladder disease N Sickle Cell Disease/Trait N Von Willebrand disease N ADD/ADHD N Eating Disorder N Anemia Y Diabetes Mellitus (non-insulin dependent ) N Multiple Sclerosis N Ovarian Problems N Gonorrhea N Frequent Urinary Tract infections N Osteopenia N Headaches/migraines N GERD (reflux) N Ovarian Cancer N Diabetes (insulin dependent) N Seizures/Epilepsy N Breast Problems N Fibroids N Asthma N Heart Attack N Lupus N Endometrial Cancer N Rubella N Blood Clotting Disorder N Bipolar Disorder N Diabetes Mellitus (during ) N Ulcerative Colitis N Hepatitis N Heart Disease N Pulmonary Embolism N RPR N Chicken Pox N Osteoporosis N Gynecological History Statement/Question Response Flow Light Date of last HPV 02/14/2024 Date of LMP 01/21/2025 Duration of Flow (days) 1 Most Recent Mammogram 03/06/2024 Current Control Method Tubal Ligat ion Age at Menarche 17 Date of Last Colonoscopy 02/05/2018 Most Recent Bone Density 08/12/2024 Frequency of Cycle (Q days) 30 Date of Last Pap Smear 02/14/2024 Obstetrics History GPAL:G 3 P 3 0 0 2 Type Value Full Term 3 Living 2 Total 3 Immunizations Vaccine Type Date Status Note Provider Ron santillan and Address Organization Details Recorded Time influenza, unspecified formulation 06/07/2023 completed Meghan Braga null, [facility] [employer] IV 02/14/2024 09:06:30 COVID-19, mRNA, LNP-S, PF, 30 mcg/0.3 mL dose 06/14/[address] null, [facility] [employer] IV 01/30/2025 11:01:05 COVID-19, mRNA, LNP-S, PF, 30 mcg/0.3 mL dose 05/24/[address] null, [facility] 01/30/2025 11:01:05 COVID-19, mRNA, LNP-S, PF, monroe-sucrose, 10 mcg/0.3 mL 12/04/2022 completed Corrie wan, [facility] [employer] [facility] 01/30/2025 11:01:05 Past Encounters Encounter ID Performer Location Encounter Start Date Encounter Closed Date Diagnosis/Indication Diagnosis SNOMED-CT Code Diagnosis ICD10 Code Diagnosis IMO Codes Diagnosis Note [id number] TIN BOCANEGRA, GEOGRAPHICAL HISTORIAN [facility] [address] [place] [address] 02/14/2024 08:58:16 02/14/2024 12:00:44 Gynecologic examination [id number] Z01.419 Patient is an new patient who presents for a gynecologi lisha Annual Exam. Medical, family and social history reviewed. The patient denies any changes. Adequate changes were made. Last seen in our office in 2019. A nnual Exam:LMP: has spotting, has never went a full year without cycleShe reports having no significan t PHYSICIAN/OPHTHALMOLOGIST symptoms.M enopause at age: UnsureDeni es hot flashes, night sweats, mood swings, vaginal dryness, or PMB P ap History: pap: 12/2017 NILM, HPV negShe is due for papCollect ed today B reast History: mammogram: She denies breast symptoms. Education on Breast Self Awareness given.She is due for mammogram and scheduled 02/14/24Orde r given today F amily History:Br east cancer-Sis terNegativ e for Cervical Cancer, Colon Cancer, Endometria l Cancer and Ovarian Cancer.MYR isk test offered and declined.E valuates 48 genes associated with 11 different hereditary cancers.Pr ovides answers for likelihood to develop cancer over the next 5 years and their lifetime Helps guide care and screening for said cancers. S ocial History:Sh tyrell is currently sexually active. She denies complaints about sexual activity. Patient reports feeling safe at home from emotional, physical, and verbal abuse.She does desire STD testing. E xercise: Occasional She wears her seat belt. She does not text and drive.The patient denies smoking and recreation al drugs. She denies drinking alcohol. P elida is regularly seen by PCP for preventati ve care: YesColon cancer screening: UTD, managed by PCPDexa scan scheduled 02/14/24, managed by PCP Screening for malignant neoplasm of cervix [id number] Z12.4 ASCCP guidelines reviewed with patient. No pap collected today. Pt states understand ing and is amenable to POC. Screening for malignant neoplasm of breast [id number] Z12.39 Pt educated on breast cancer screening guidelines , and discussed recommenda tion for scheduling imaging at hospital of her choice. Reviewed recommenda tion to have imaging done at same facility if possible as previous screenings . Pt states understand ing of POC. Depression screening [id number] Z13.31 PHQ9: 0. Pt educated on normal scoring, and discussed depression precaution s and when to notify HCP/go to ER. Venereal d isease screening [id number] Z11.3 [id number] Pt educated on importance of condom use for protection against STD's. Samples collected and sent. Further POC pending lab result review. Pt states understand ing of POC. Postmenopa usal bleeding [id number] N95.0 29348 -Did not start cycle until after age 17 yo-Hx of D&C in 2019 due to PMB-1/2 day of spotting every 6 months requiring panty liner. [id number] Thanh Hoyos DO [facility] [address] [place] [address] 03/06/2024 09:26:26 03/07/2024 12:16:48 Postmenopausal bleeding [id number] N95.0 1. Endometria l biopsy was performed today, decent amount of tissue was obtained. The patient cried during the procedure but was provided support by Ms. Wu.2. Awaiting pathology results from the endometria l biopsy.3. If the biopsy reveals mild hyperplasi a, treatment with progestero ne will be considered .4. If the biopsy reveals findings more concerning than mild hyperplasi a, further discussion regarding management options, including hysterecto my, will be required.5 . The patient will follow-up after biopsy results are available. [id number] Laura Trinidad MD [facility] [address] [place] [address] 08/03/2024 10:22:08 08/03/2024 11:48:27 Postmenopausal bleeding [id number] N95.0 Postmenopa usal bleeding is associated with uterine fibroids. Proposed management includes pelvic MRI to assess structural details followed by uterine artery embolizati on to reduce fibroid vascular supply. In-depth patient education on the procedure and expectatio ns was provided. Discussed with patient very small risk of LMS and that it cannot completely be ruled out by any imaging or biopsy and ideally hysterecto my is going to be the best route of managment for her current situation. Patient continues to decline. Will order MRI and once Results are receivd will send for [place]. Intramural leiomyoma of uterus [id number] D25.1 D25.0 D25.2 [id number] Intramural leiomyoma prominentl y contribute s to bleeding issues. A non-surgic al approach via embolizati on is the plan, subject to further anatomical evaluation by MRI. This conservati ve management aligns with patient's preference s. [id number] Belle Gaitan MD [facility] [address] [place] [address] 01/30/2025 11:37:05 02/06/2025 09:47:39 Postmenopausal bleeding [id number] N95.0 Recurrent episodes of postmenopa usal bleeding associated with large fibroid uterusPt has had hysterosco py in the past and recently had embx and pelvic MRI this yearShe had decided to undergo hysterecto my. She has considered embolizati on procedure but did not undergo this as they advised it might not take care of the bleeding. Intramural leiomyoma of uterus [id number] D25.1 35189 reviewed results of MRI. Multiple fibroids are noted, intramural as well as submucosal . Largest is 6 cm. One anterior fibroid appears to have necrosis.O verall size measures 14 weeks.Pt has had 3 c sections and has a midline incision. Given the large bulky uterus which is situated to just below umbilicus, advise the abdominal approach for her surgery.As she has a midline incision and these are larger fibroids, advise that we will use the same incision.W ill work on scheduling and review her history from a medical standpoint to see if clearance is neededThe patient is agreeable to proceeding with this plan of care Health Concerns Section Related Observation LastModified by Organization Marquise romero LastModified Time None Recorded Concern Status LastModified by Organization Details LastModified Time None Recorded Advance Directives Directive None Recorded Payers Insurance Date Sequence Insurance Name Policy Number Policy Matson Covered Member ID Matson Member ID Guarantor Name 02/06/2025 1 [facility] [id number] Sarah Calvillo [id number] Sarah Calvillo Notes Date Note Type Note Provider Name and Address Organization Details Recorded Time 02/14/2024 text/html ROS as noted in the HPI Pt states she is doing well. Pt denies any PMB, vaginal dryness, or climacteric sx. Pt is not UTD on mammogram, last done 2020, scheduled for today. . Pt is UTD on colonoscopy, last done: 2017. Pt UTD on DEXA, last done: never but sched. today. Pt request STD screening via culture but no serum testing. Pt has no other concerns. Patient has not taken BP meds yet today. TIN BOCANEGRA, [facility] [address] [facility], [place], [address], [facility] 02/14/2024 09:40:41 03/06/2024 text/html Post Menopausal BleedingReported by PatientHPIFor quality, patient reportsspotting. For onset/timing, patient reportspostmenopause. For duration, patient reports1-2 days. For context, patient reportspostmenopausal . The patient verbally consented to documentation via virtual scribe for this encounter. The patient is a 63-year-old female presenting for evaluation of postmenopausal bleeding. The patient reports one episode of spotting on 08/21/2023. She describes the bleeding as minimal, stating that its just a spotting and then it goes away. She denies heavy bleeding and describes the spotting as like when you're younger and you just come in on your menstrual cycle and it just drip. That's all it is. The patient notes that this has occurred once before, approximately six to seven months ago. She denies associated pain, but states that she feels as though she is peeing herself when the spotting occurs. The patient underwent endometrial biopsy in 2019, which was performed by Dr. Gaitan. She states that the biopsy was performed due to similar symptoms, and the results were negative for malignancy. The patient reports a history of uterine fibroids, which were noted on a recent ultrasound. 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 The patient denies hot flashes. She reports a history of anemia since childhood. Thanh Hoyos DO [facility] [facility], [place], [address], [employer] [facility] 03/06/2024 21:16:22 08/03/2024 text/html Sarah is a 63 yr old female. Pt is here for post menopause bleeding. Pt had US today. Pt states she has been spotting 3 times a week. The patient is a 63-year-old female presenting with postmenopausal bleeding. The bleeding has been intermittent since a procedural intervention last year and is noted to be associated with clotting. The episodes are influenced by physical activities such as lifting, which occur in her work environment. Her gynecological history includes diagnosed intramural leiomyoma of the uterus since age 46 with previous treatments including dilation and curettage. Efforts to control the fibroid-related symptoms have intermittently been effective, but the bleeding reappeared by May after initially subsiding. The patient prefers to avoid surgical intervention, specifically a hysterectomy, due to age considerations. Laura Trinidad MD [address] [place] [address], [place], [address], [facility] [employer] IV 08/03/2024 12:40:00 01/30/2025 text/html ROS as noted in the HPI Sarah is a 64year old who is here today for post menopausal bleeding.She is referred by Dr Michele Campuzano. She has had intermittent post menopausal bleeding for a long time. However, she passed a blood clot the other day and is concerned. Also had some bleeding in December.She saw Dr Hoyos in the fall and had an endometrial bx which was negative, benignShtyrell then saw Dr Trinidad who referred her to Dr Lopez to consider a fibroid embolization procedure. However, during the pre op phone call, Sarah was informed that the procedure might not stop the bleeding. She then decided not to have the procedure done.She now comes to me and expresses she is ready to have a hysterectomy. She is tired of the bleeding, gets anemic, and wants to be completely done with it.She has had 3 c sections.Reviewing her history, I actually did a hysteroscopy D and C on her for bleeding during the pandemic, December 2019 at [facility]. 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 Belle Gaitan MD [address] [place], [address], [facility] 02/05/2025 15:16:45 OBGyn Episode Ob Episode Information Episode Created Date Number of Fetuses Patient Bloodtype Patient rh Status Prepregnancy Weight lbs Domestic Partner Domestic Partner Phone Father Name Chief Lending Officer Status 08/03/19 25 1 CLOSED Fetus Data First Name Last Name Admitted to NICU Weight (g) Sex Living Outcome Pediatric Complications Fetus ID Race Codes Race Delivery Type M Full Term [id number] Primary Tirso Calculation Initial Tirso Date Initial Exam Date Initial Exam Provider Initial Ultrasound Date Last Menstrual Period Date Ultra Sound Weeks Gestation 0 Eighteen To Twenty Week Tirso Update Ultra Sound Date Fundal Height At Umbil Quickening Date Ultra Sound Latest Weeks Gestation Final Tirso Confirmed By Final Tirso Confirmed Date Final Tirso Date Ultra Sound Latest Days Gestation 0 0 Menstrual History Last Menstrual Date Menses Monthly On Bcp Conception Prior Menses Frequency Hcg Plus Date Menarche Onset Age Delivery Information Delivery Date Delivery Type Labor Anesthesia Weeks Gestation Incision Type Labor Labor Length Hrs Delivered By Post Complications Tubal Sterilization Discharge Date Comments 1 Discharge Information Feeding Method Contraceptive Method Maternal HG B and HCT Levels Ob Episode Information Episode Created Date Number of Fetuses Patient Bloodtype Patient rh Status Prepregnancy Weight lbs Domestic Partner Domestic Partner Phone Father Name Chief Lending Officer Status 08/03/19 25 1 CLOSED Fetus Data First Name Last Name Admitted to NICU Weight (g) Sex Living Outcome Pediatric Complications Fetus ID Race Codes Race Delivery Type F Full Term [id number] Repeat Tirso Calculation Initial Tirso Date Initial Exam Date Initial Exam Provider Initial Ultrasound Date Last Menstrual Period Date Ultra Sound Weeks Gestation 0 Eighteen To Twenty Week Tirso Update Ultra Sound Date Fundal Height At Umbil Quickening Date Ultra Sound Latest Weeks Gestation Final Tirso Confirmed By Final Tirso Confirmed Date Final Tirso Date Ultra Sound Latest Days Gestation 0 0 Menstrual History Last Menstrual Date Menses Monthly On Bcp Conception Prior Menses Frequency Hcg Plus Date Menarche Onset Age Delivery Information Delivery Date Delivery Type Labor Anesthesia Weeks Gestation Incision Type Labor Labor Length Hrs Delivered By Post Complications Tubal Sterilization Discharge Date Comments 1 Discharge Information Feeding Method Contraceptive Method Maternal HG B and HCT Levels Ob Episode Information Episode Created Date Number of Fetuses Patient Bloodtype Patient rh Status Prepregnancy Weight lbs Domestic Partner Domestic Partner Phone Father Name Chief Lending Officer Status 08/03/19 25 1 CLOSED Fetus Data First Name Last Name Admitted to NICU Weight (g) Sex Living Outcome Pediatric Complications Fetus ID Race Codes Race Delivery Type F Full Term [id number] Repeat Tirso Calculation Initial Tirso Date Initial Exam Date Initial Exam Provider Initial Ultrasound Date Last Menstrual Period Date Ultra Sound Weeks Gestation 0 Eighteen To Twenty Week Tirso Update Ultra Sound Date Fundal Height At Umbil Quickening Date Ultra Sound Latest Weeks Gestation Final Tirso Confirmed By Final Tirso Confirmed Date Final Tirso Date Ultra Sound Latest Days Gestation 0 0 Menstrual History Last Menstrual Date Menses Monthly On Bcp Conception Prior Menses Frequency Hcg Plus Date Menarche Onset Age Delivery Information Delivery Date Delivery Type Labor Anesthesia Weeks Gestation Incision Type Labor Labor Length Hrs Delivered By Post Complications Tubal Sterilization Discharge Date Comments 6 Discharge Information Feeding Method Contraceptive Method Maternal HG B and HCT Levels
--- OUTSIDE RECORDS SUMMARY | 2025-03-28 01:34 | XMS_ITS | Encounter Summary ---
Author Organization [facility] Address [facility] [place] [address] Care Team Providers Care Felt Carbonizer Name Role Phone Javon Rivera MD Primary Care Provider [phone] Jessica Larson MD Unavailable [phone] Javier Campuzano MD Primary Care Provider [phone] Encounter Details Date Type Department Care Team (Late Contact Info) Description 01/13/2024 [employer] 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 [address] [place], [place] [phone] documented as of this encounter Visit Diagnoses Not on filedocumented in this encounter Care Teams Felt Carbonizer Relationship Specialty Start Date End Date Javon Rivera MD [address] [place] [id number] PCP - General 12/31/16 02/06/24 Javier Campuzano MD [address] [place] [address] [address] [place] [phone] PCP - General 02/07/24 Jessica Larson MD [facility] [address] [place] [address] [employer] CARDIOVASCULAR DISEASE 07/15/18 documented as of this encounter
--- OUTSIDE RECORDS SUMMARY | 2025-03-28 01:34 | XMS_ITS | Encounter Summary ---
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 Not on file Not on file documented as of this encounter Plan of Treatment Upcoming Encounters Date Type Department Care Team (Late st Contact Info) Description 09/17/2025 2:30 PM CDT Office Visit [facility], [address] [place], [place] [phone] Lorna Montes APRN Three [facility] [address] [place], [place] [address] documented as of this encounter Visit Diagnoses Not on filedocumented in this encounter Care Teams Resource Engineer Relationship Specialty Start Date End Date Javier Campuzano MD [address] [facility] [address] [place] [address] PCP - General 02/07/24 Jessica Larson MD [address] [facility]. [address] [place], [place] [phone] [place]lette Full Roll Inspector CARDIOVASCULAR DISEASE 07/15/18 documented as of this encounter
--- OUTSIDE RECORDS SUMMARY | 2025-03-28 01:34 | XMS_ITS | Clinical Summary ---
Author Organization [facility] Address [address] [place] [address] Care Team Providers Care Molder Sweep Name Role Phone Jessica Larson MD Unavailable [phone] Fabian Nava MD Primary Care Provider [phone] Allergies No known active allergies Medications losartan (COZAAR) 50 MG tablet Take 1 tablet (50 mg total) by mouth daily. 30 tablet 3 4 Active potassium chloride CR (K-TAB) 10 MEQ Tab CR tablet Take 1 tablet (10 mEq total) by mouth daily. 30 tablet 3 4 Active triamterene-hy droCHLOROthiaz antonino (MAXZIDE) 75-50 MG tablet Take 1 tablet by mouth daily. 30 tablet 3 4 Active Vitamin D3 125 mcg Tab Take 1 tablet (125 mcg total) by mouth daily. Active ferrous sulfate EC 325 (65 Fe) MG tablet Take 1 tablet (325 mg total) by mouth 2 (two) times a day. 60 tablet 3 4 03/12/20 25 Discontinued(P t. elected to discontinue med) furosemide (LASIX) 20 MG tablet Take 1 tablet (20 mg total) by mouth every morning. 90 tablet 4 03/12/20 25 Discontinued(P t. elected to discontinue med) Active Problems Patient Care Coordination No te Formatting of this note migh t be different from the original. PT Precaution: HX of High Blood Pressure (managed with medication) and on evaluation 118/80 (patient reports BP usually normal values) Problem Noted Date Diagnosed Date Other specified nutritional anemias 06/09/2023 Localized edema 05/15/2020 PMB (postmenopausal bleeding) 12/12/2019 Intramural and submucous leiomyoma of uterus 12/2019 Abnormal EKG 07/29/2018 Family history of premature CAD 07/27/2018 Hypertension Chest pain Encounters Date Type Department Care Team Description 03/16/[address] [facility] [place] [address] Belle Gaitan MD 03/14/2025 MyChart Message Enc [facility], [facility] [address] [place] [address] [facility] reviewed 03/14/2025 Results Follow-Up [facility] [address], [place] [address] [place] [address] Teagan Landry RN LIPID PANEL, COMPREHENSIVE METABOLIC PANEL 03/12/2025 2:00 PM CDT Office Visit [facility] [address], [address] [address] Jessica Larson MD Follow Up (9 months); Chest Pain; Hypertension 03/12/2025 Travel 03/01/2025 2:18 PM CDT - 03/01/2025 11:59 PM CDT Hospital Encounter [facility] [place] [address] Fabian Nava MD Discharge Disposition: Home or Self Care (Routine Discharge) 03/01/2025 Travel 02/06/2025 Telephone [facility] [address], [address] [address] Jessica Larson MD Surgical Clearance (Dr Gaitan requesting cardiac clearance) 01/27/2025 8:16 AM CDT - 01/27/2025 11:59 PM CDT Hospital Encounter [facility] [place] [address] Fabian Nava MD Discharge Disposition: Home or Self Care (Routine Discharge) 01/20/2025 9:17 AM CDT - 01/20/2025 11:59 PM CDT Hospital Encounter [facility] [place] [address] Fabian Nava MD Discharge Disposition: Home or Self Care (Routine Discharge) 01/15/2025 11:24 AM CDT - 01/15/2025 11:59 PM CDT Hospital Encounter [facility] [place] [address] Fabian Nava MD Discharge Disposition: Home or Self Care (Routine Discharge) 01/15/2025 11:15 AM CDT - 01/15/2025 11:23 AM CDT Hospital Encounter [facility] [place] [address] Fabian Nava MD Discharge Disposition: Home or Self Care (Routine Discharge) 01/15/[address] [facility] [place] [address] Faiban Nava MD 01/15/2025 Travel from Last 3 Months Immunizations Immunization Administration Dates Next Due PFIZER COVID-19 (5-11), MRNA , LNP-S, PF, KIERSTEN-SUCROSE, 10 MCG/0.3 ML (PFIZER) 12/04/2022 PFIZER COVID-19 (ORIGINAL FO RMULATION, PURPLE CAP) mRNA, LNP-S, PF, 30 MCG/0.3 ML DOSE 06/14/2020,05/24/2020 Family History Medical History Relation Comments brain aneurysm Brother cerebral palsy from influenza Daughter staph infection Daughter Heart Attack Father Heart Attack Mother Hypertension Mother Kidney Disease Mother on dialysis Stroke Mother Breast Cancer Sister 1 mastectomy Heart Sister 2 Relation Status Comments Brother (Age 60) Daughter (Age 30) d30 Father (Age 42) Mother (Age 77) Sister 1 Alive Sister 2 (Age 60) Social History Tobacco Use Types Packs/Day Years Used Date Smoking Tobacco: Never Smokeless Tobacco: Never Tobacco Cessation:Counseling Given: Not Answered Alcohol Use Standard Drinks/Week Comments Never 0 (1 standard drink = 0.6 oz pur e alcohol) Comments No Sex and Gender Information Value Date Recorded Sex Assigned at Female 01/15/2025 11:13 AM CDT Legal Sex Female 9:37 PM CDT Gender Identity Not on file Sexual Orientation Not on file 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 file Not on file Not on file Last Filed Vital Signs Vital Sign Reading Time Taken Comments Blood Pressure 130/80 03/12/2025 2:31 PM CDT Pulse 99 03/12/2025 2:01 PM CDT Temperature 36.3 C (97.4 F) 12/12/2019 12:20 PM CDT Respiratory Rate 20 12/12/2019 12:45 PM CDT Oxygen Saturation 97% 03/12/2025 2:01 PM CDT Inhaled Oxygen Concentration - - Weight 87.1 kg (192 lb) 03/12/2025 2:01 PM CDT Height 157.5 cm (5' 2) 03/12/2025 2:01 PM CDT Body Mass Index 35.12 03/12/2025 2:01 PM CDT Plan of Treatment Upcoming Encounters Date Type Department Care Team (Late st Contact Info) Description 09/17/2025 2:30 PM CDT Office Visit [facility], [place] [address] [place], [place] [id number] Lorna Montes APRN Three [facility]. [address] [place] [address] Health Maintenance Due Date Last Done Comments Cervical Cancer Screening Pap Smear (Age 30 to 64) Every 3 Years 1960 Colorectal Cancer Screening Colonoscopy (10 Years) 1960 Annual Physical 1964 Hepatitis C 11/13/1979 Cervical Cancer Screening Pap with HPV Testing (Age 30 to 64) Every 5 Years 11/13/1991 Cervical Cancer Screening with HPV 11/13/1991 Zoster Vaccines (1 of 2) 11/13/2011 COVID-19 Vaccine ( season) 2025 12/04/2022, 06/08/2021, 06/14/2020, Additional history exists Influenza Adult (#1) 2025 06/07/2023 Mammogram Screening 03/01/2027 03/01/2025, 08/29/2024, 03/06/2024, Additional history exists DTaP, Tdap and Td Vaccines (2 - Td or Tdap) 01/15/2035 01/15/2025 RSV Immunization or 60+ Years (1 - 1-dose 75+ series) 2036 Pneumococcal Vaccine: 50+ Years Completed 01/15/2025 Hepatitis A Vaccines Aged Out No long er eligible based on patient's age to complete this topic Meningococcal B Vaccine Aged Out No l onger eligible based on patient's age to complete this topic Meningococcal Vaccine Aged Out No roselyn denny eligible based on patient's age to complete this topic RSV Immunizations Under 20 Months Aged Out No longer eligible based on patient's age to complete this topic Procedures Procedure Name Priority Date/Time Associated Diagnosis Comments COMPREHENSIVE METABOLIC PANEL Routine 03/13/2025 LIPID PANEL Routine 03/13/2025 ELECTROCARDIOGRAM (NON MIDMARK ACQUIRED) Routine 03/12/2025 2:14 PM CDT Swelling US BREAST RT BIRAD LTD Routine 5 3:19 PM CDT Other abnormal and inconclusive findings on diagnostic imaging of breast MG DIAG W MARCY RT DIGI Routine 5 2:40 PM CDT Other abnormal and inconclusive findings on diagnostic imaging of breast FECAL FAT, QUALITATIVE Routine 6:40 AM CDT Anemia XR HIP RT 2V Routine 01/15/2025 12:13 PM CDT Right groin pain ALBUMIN URINE RANDOM W/CREATININE Routine 01/15/2025 11:43 AM CDT Essential (primary) hypertension VITAMIN D, 25 OH Routine 01/15/2025 11:4 2 AM CDT Other specified disorders of bone density and structure, unspecified site Other specified disorders of bone density and structure, multiple sites PHOSPHORUS, INORGANIC PHOSPHATE Routine 01/15/2025 11:42 AM CDT Other specified disorders of bone density and structure, unspecified site Other specified disorders of bone density and structure, multiple sites PTH - INTACT Routine 01/15/2025 11:42 AM CDT Other specified disorders of bone density and structure, unspecified site Other specified disorders of bone density and structure, multiple sites FREE T3 Routine 01/15/2025 11:42 AM CDT Localized edema THYROXINE, FREE (FT4) Routine 01/15/2025 11:42 AM CDT Localized edema THYROID STIM HORMONE TSH Routine 025 11:42 AM CDT Localized edema CBC W/DIFF AUTOMATED Routine 01/15/2025 11:42 AM CDT Anemia FERRITIN Routine 01/15/2025 11:42 AM CDT Anemia IRON SAT PANEL (IRON,IBC,%SAT) Routine 01/15/2025 11:42 AM CDT Anemia RETICULOCYTE CT, AUTO Routine 01/15/2025 11:42 AM CDT Anemia FSH, FOLLICLE STIM HORMONE Routine 01/15/2025 11:42 AM CDT Abnormal uterine and vaginal bleeding, unspecified from Last 3 Months Results * (ABNORMAL) COMPREHENSIVE METABOLIC PANEL (03/13/2025) [...] Genericprovider LABORATORY Edited Result - Final * ELECTROCARDIOGRAM (03/12/2025 2:14 PM CDT) 03/12/2025 2:14 PM CDT Narrative [facility] - 03/12/2025 2:25 PM CDT [facility] Test Date: 2025-03-12 Pat Name: CHASITY MUKHERJEE Department: 112 Room: Gender: 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1960 Requested By: JESSICA LARSON Order Number: [id number] Reading MD: Jessica Larson Measurements Intervals [place] Rate: 106 P: 42 UT: 166 QRS: -3 QRSD: 87 T: 106 QT: 300 QTc: 399 Interpretive Statements SINUS TACHYCARDIA POSSIBLE LEFT ATRIAL ENLARGEMENT LEFT VENTRICULAR HYPERTROPHY AND ST-T CHANGE Since prior tracing, Ventricular rate is faster Procedure Note Jessica Larson MD - 03/12/2025 [facility] Test Date: 2025-03-12 Pat Name: CHASITY MUKHERJEE Department: 112 Room: Gender: 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1960 Requested By: JESSICA LARSON Order Number: [id number] Reading MD: Jessica Larson Measurements Intervals [place] Rate: 106 P: 42 UT: 166 QRS: -3 QRSD: 87 T: 106 QT: 300 QTc: 399 Interpretive Statements SINUS TACHYCARDIA POSSIBLE LEFT ATRIAL ENLARGEMENT LEFT VENTRICULAR HYPERTROPHY AND ST-T CHANGE Since prior tracing, Ventricular rate is faster us Jessica Larson MD PROCEDURES-ORDERABLE NO CHARGE Final Result BEN ALEGRIA * US BREAST RT [employer] (03/01/2025 3:19 PM CDT) Anatomical Region Laterality Modality Breast Right Ultrasound 03/01/2025 3:13 PM CDT Impressions 03/01/2025 3:19 PM CDT ===== IMPRESSION: ===== 1. No mammographic evidence of malignancy. 2. Interval decrease in size of a benign slightly complex cyst at the 12:00 position. Assessment: ACR BI-RADS 2 - BENIGN FINDING(S) Recommendation: 1:Routine Screening Bilateral Comments: Ordered By: FABIAN NAVA Interpreted By: Cristiana Corral, 03/01/2025 3:13 PM Narrative 03/01/2025 3:19 PM CDT [facility] [place] [address] EXAMINATION: Digital right diagnostic mammogram with 3-D tomosynthesis. Right breast ultrasound [id number] EXAM DATE/TIME: 03/01/2025 2:25 PM REASON FOR EXAM: Other abnormal and inconclusive findings COMPARISON: 08/29/2024. 03/06/2024. 02/14/2024 TECHNIQUE: Digital diagnostic mammography of the right breast was performed in addition to 3-D Tomosynthesis technique. This study was read with the assistance of a computer-aided detection system. TISSUE DENSITY: There are scattered areas of fibroglandular density. Findings: Previously identified well-defined lesion at the 12:00 position of the right breast, anterior depth, is smaller on today's mammogram and ultrasound.. Prior ultrasound proven cyst at the 9:00 position, posterior depth, is slightly larger. Benign appearance. No malignant microcalcifications or architectural distortion. RIGHT BREAST ULTRASOUND. Imaging at the 12:00 position of the right breast. 2 cm from the nipple. There has been interval decrease in size of slightly complex cyst. Through transmission. No abnormal color flow. Measures 9.1 x 7.2 x 10.1 mm. Prior measurement of 12.5 x 7.6 x 11.0 mm. Decrease in size would signify that this is benign. Procedure Note Jamse Corral MD - 03/01/2025 [facility] [place] [address] EXAMINATION: Digital right diagnostic mammogram with 3-D tomosynthesis.Right breast ultrasound [id number] EXAM DATE/TIME: 03/01/2025 2:25 PM REASON FOR EXAM: Other abnormal and inconclusive findings COMPARISON: 08/29/2024. 03/06/2024. 02/14/2024 TECHNIQUE: Digital diagnostic mammography of the right breast wasperformed in addition to 3-D Tomosynthesis technique. This study was readwith the assistance of a computer-aided detection system. TISSUE DENSITY: There are scattered areas of fibroglandular density. Findings: Previously identified well-defined lesion at the 12:00 positionof the right breast, anterior depth, is smaller on today's mammogram andultrasound.. Prior ultrasound proven cyst at the 9:00 position, posterior depth, isslightly larger. Benign appearance. No malignant microcalcifications or architectural distortion. RIGHT BREAST ULTRASOUND. Imaging at the 12:00 position of the rightbreast. 2 cm from the nipple. There has been interval decrease in size of slightly complex cyst. Throughtransmission. No abnormal color flow. Measures 9.1 x 7.2 x 10.1 mm. Prior measurement of 12.5 x 7.6 x 11.0 mm. Decrease in size would signify that this is benign. ===== IMPRESSION: ===== 1. No mammographic evidence of malignancy. 2. Interval decrease in size of a benign slightly complex cyst at the12:00 position. Assessment: ACR BI-RADS 2 - BENIGN FINDING(S) Recommendation: 1:Routine Screening Bilateral Comments: Ordered By: FABIAN NAVA Interpreted By: Cristiana Corral, 03/01/2025 3:13 PM us Fabian Nava MD ULTRASOUND Final Result * MG DIAG W MARCY RT DIGI (03/01/2025 2:40 PM CDT) Anatomical Region Laterality Modality Breast Right Mammography 03/01/2025 3:13 PM CDT Impressions 03/01/2025 3:19 PM CDT ===== IMPRESSION: ===== 1. No mammographic evidence of malignancy. 2. Interval decrease in size of a benign slightly complex cyst at the 12:00 position. Assessment: ACR BI-RADS 2 - BENIGN FINDING(S) Recommendation: 1:Routine Screening Bilateral Comments: Ordered By: FABIAN NAVA Interpreted By: Cristiana Corral, 03/01/2025 3:13 PM Narrative 03/01/2025 3:19 PM CDT [facility] [place] [address] EXAMINATION: Digital right diagnostic mammogram with 3-D tomosynthesis. Right breast ultrasound [id number] EXAM DATE/TIME: 03/01/2025 2:25 PM REASON FOR EXAM: Other abnormal and inconclusive findings COMPARISON: 08/29/2024. 03/06/2024. 02/14/2024 TECHNIQUE: Digital diagnostic mammography of the right breast was performed in addition to 3-D Tomosynthesis technique. This study was read with the assistance of a computer-aided detection system. TISSUE DENSITY: There are scattered areas of fibroglandular density. Findings: Previously identified well-defined lesion at the 12:00 position of the right breast, anterior depth, is smaller on today's mammogram and ultrasound.. Prior ultrasound proven cyst at the 9:00 position, posterior depth, is slightly larger. Benign appearance. No malignant microcalcifications or architectural distortion. RIGHT BREAST ULTRASOUND. Imaging at the 12:00 position of the right breast. 2 cm from the nipple. There has been interval decrease in size of slightly complex cyst. Through transmission. No abnormal color flow. Measures 9.1 x 7.2 x 10.1 mm. Prior measurement of 12.5 x 7.6 x 11.0 mm. Decrease in size would signify that this is benign. us Fabian Nava MD MAMMO Final Result * FECAL FAT, QUALITATIVE (01/27/2025 6:40 AM CDT) FECAL FAT QUALITATIVE (STOOL) NORMAL NORMAL 01/30/2025 11:44 AM CDT [employer] VANESAYEMI CORTEZ Comment: Test Performed by [facility], [facility], [address] [place] [address] Phan Last M.D., Ph.D., Director of Laboratories , [facility] [id number] 01/27/2025 6:40 AM CDT us Fabian Nava MD LABORATORY Final Result [address] [address], [place] [phone] * XR HIP RT 2V (01/15/2025 12:13 PM CDT) Anatomical Region Laterality Modality Hip Radiographic Dona ging 01/15/2025 1:16 PM CDT Impressions 01/15/2025 2:41 PM CDT IMPRESSION: 1. No osseous or articular abnormalities. 2. Moderate to severe osteoarthritis of both hips. The attending radiologist has reviewed the image(s) and agrees with the content of this report. Ordered By: FABIAN NAVA Interpreted By: Laurie Jordan MD, 01/15/2025 1:16 PM Narrative 01/15/2025 2:[address] PM [address]T [address] [address] XR HIP RT 2V: 01/15/2025 12:07 PM CLINICAL INDICATION: Right hip pain that sometimes hurts to walk. COMPARISON: MRI pelvis 08/19/2024 TECHNIQUE: AP and lateral views of the right hip FINDINGS: No fracture or dislocation is seen. Eccentric narrowing of the medial aspect of the hip joint noted bilaterally, moderate to severe. Visualized portions of the sacroiliac, left hip and sacral neural foraminal structures appear within normal limits. Calcified degenerative leiomyoma. Procedure Note Seamus Salas MD - 01/15/2025 [facility] [address] [place], [place] [address] XR HIP RT 2V: 01/15/2025 12:07 PM CLINICAL INDICATION: Right hip pain that sometimes hurts to walk. COMPARISON: MRI pelvis 08/19/2024 TECHNIQUE: AP and lateral views of the right hip FINDINGS: No fracture or dislocation is seen. Eccentric narrowing of the medialaspect of the hip joint noted bilaterally, moderate to severe. Visualizedportions of the sacroiliac, left hip and sacral neural foraminalstructures appear within normal limits. Calcified degenerativeleiomyoma. IMPRESSION: 1. No osseous or articular abnormalities. 2. Moderate to severe osteoarthritis of both hips. The attending radiologist has reviewed the image(s) and agrees with thecontent of this report. Ordered By: FABIAN NAVA Interpreted By: Laurie Jordan MD, 01/15/2025 1:16 PM Fabian Nava MD GENERAL IMAGING Final Result * MICROALBUMIN CREAT RATIO, URINE RANDOM (01/15/2025 11:43 AM CDT) CREATININE (U) 101.0 28 - 217 MG/DL 01/15/2025 12:12 PM CDT [facility] MICROALBUMIN (U) 1.3 <2.0 mg/dL 01/16/20 25 12:12 PM CDT [facility] ALBUMIN/CREAT RATIO 12.6 <30 MG/G 01/15/2025 12:12 PM CDT [facility] URINE SPECIMEN / Unknown 01/15/2025 11:43 AM CDT us Fabian Nava MD URINE ORDERABLES Final Result [facility] [address] [place] [address], [place] [phone] * PTH - INTACT (01/15/2025 11:42 AM CDT) PTH INTACT 78.5 18.4 - 80.1 PG/ML 01/15/2025 12:21 PM CDT [facility] 01/15/2025 11:4 2 AM CDT us Fabian Nava MD LABORATORY Final Result Performing Organization Address City/[facility] Co de Phone Number [facility] [address] [place] [address], [place] [phone] * IRON SAT PANEL (IRON,IBC,%SAT) (01/15/2025 11:42 AM CDT) IRON 75 50.0 - 170.0 MCG/DL 01/15/2025 12:25 PM CDT [facility] IRON BINDING CAPACITY 305 250 - 450 MCG/DL 01/15/2025 12:25 PM CDT [facility] IRON SATURATION 25 20 - 55 % 12:25 PM CDT [facility] 01/15/2025 11:4 2 AM CDT us Fabian Nava MD LABORATORY Final Result [facility] [address] [place] [address], [place] [phone] * FREE T3 (01/15/2025 11:42 AM CDT) FREE T3 2.4 2.18 - 3.98 PG/ML 01/15/2025 5:07 PM CDT [facility] 01/15/2025 11:4 2 AM CDT us Fabian Nava MD LABORATORY Final Result Performing Organization Address City/[facility]/ZIP Co de Phone Number [facility] [address] [place] [address], [place] [phone] * (ABNORMAL) RETICULOCYTE CT, AUTO (01/15/2025 11:42 AM CDT) [facility] RETICULOCYTE COUNT 1.8 0.8 - 2.1 % 01/15/2025 12:23 PM CDT [facility] ABSOLUTE RETICULOCYTE 0.09 0.02 - 0.10 x10'6/uL 01/15/2025 12:23 PM CDT [facility] IMMATURE RETIC FRACTION 14.7 3.0 - 15.9 % 01/15/2025 12:23 PM CDT [facility] RETIC HGB 24.1(L) 28.0 - 35.0 PG 01/15/2025 12:23 PM CDT [facility] 01/15/2025 11:4 2 AM CDT us Fabian Nava MD LABORATORY Final Result [facility] [address] [place] [address], [place] [phone] * FSH, FOLLICLE STIM HORMONE (01/15/2025 11:42 AM CDT) FSH 51.4 MIU/ML 01/15/2025 12:15 PM CDT [facility] Comment: REFERENCE RANGES FOR FEMALES: FOLLICULAR 3.5-12.5 MID-CYCLE 4.7-21.5 LUTEAL 1.7-7.7 POSTMENOPAUSAL 25.8-134.8 01/15/2025 11:4 2 AM CDT Fabian Nava MD LABORATORY Final Result [facility] [address] [place] [address], * (ABNORMAL) CBC W/DIFF AUTOMATED (01/15/2025 11:42 AM CDT) Pathologist [facility] WBC 7.63 4.5 - 11.0 x10'3/uL 01/15/2025 12:23 PM CDT [facility] RBC 5.16 4.20 - 5.40 x10'6/uL 01/15/2025 12:23 PM CDT [facility] HGB 11.2(L) 12.0 - 16.0 G/DL 01/15/2025 12:23 PM CDT [facility] HCT 37.2(L) 38.0 - 48.0 % 01/15/2025 12:23 PM CDT [facility] MCV 72.1(L) 81.0 - 99.0 FL 01/15/2025 12:23 PM CDT [facility] MCH 21.7(L) 27.0 - 31.0 PG 01/15/2025 12:23 PM CDT [facility] MCHC 30.1(L) 32.0 - 36.0 G/DL 01/15/2025 12:23 PM CDT [facility] RDW 14.1 11.5 - 14.5 % 01/15/2025 12:23 PM CDT [facility] PLT 251 130 - 400 x10'3/uL 01/15/2025 12:23 PM CDT [facility] MPV 11.0 9.3 - 12.2 FL 01/15/2025 12:23 PM CDT [facility] DIFFERENTIAL TYPE AUTOMATED DIFFERENTIAL 01/15/2025 12:42 PM CDT [facility] NEUTROPHILS % 64.4 % 01/15/2025 12:42 PM CDT [facility] LYMPHOCYTES % 24.4 % 01/15/2025 12:42 PM CDT [facility] MONOCYTES % 6.2 % 01/15/2025 12:42 PM CDT [facility] EOSINOPHILS 4.2 % 01/15/2025 12:42 PM CDT [facility] BASOPHILS 0.5 % 01/15/2025 12:42 PM CDT [facility] IMMATURE GRANS % 0.3 % 01/16/20 12:42 PM CDT [facility] ABS. NEUTROPHILS 4.92 1.80 - 7.70 x10'3/uL 01/15/2025 12:42 PM CDT [facility] ABS. LYMPHOCYTES 1.86 1.00 - 4.80 x10'3/uL 01/15/2025 12:42 PM CDT [facility] ABS. MONOCYTES 0.47 0.24 - 0.86 x10'3/uL 01/15/2025 12:42 PM CDT [facility] ABS. EOSINOPHILS 0.32 0.04 - 0.36 x10'3/uL 01/15/2025 12:42 PM CDT [facility] ABS. BASOPHILS 0.04 0.01 - 0.08 x10'3/uL 01/15/2025 12:42 PM CDT [facility] ABS. IMMATURE GRANULOCYTES 0.02 0.00 - 0.49 x10'3/uL 01/15/2025 12:42 PM CDT [facility] RBC MORPHOLOGY SLIDE REVIEWED 2024 12:42 PM CDT [facility] HYPOCHROMASIA 1+ 01/15/2025 12:42 PM CDT [facility] MICRO 1+ 01/15/2025 12:42 PM CDT [facility] PLT EST. ADEQUATE 01/15/2025 12:42 PM CDT [facility] 01/15/2025 11:4 2 AM CDT us Fabian Nava MD LABORATORY Final Result [facility] [address] [place] [address], [place] [phone] * THYROXINE, FREE (FT4) (01/15/2025 11:42 AM CDT) FREE T4 1.24 0.76 - 1.46 NG/DL 01/15/2025 12:25 PM CDT [facility] 01/15/2025 11:4 2 AM CDT us Fabian Nava MD LABORATORY Final Result [facility] [address] [place] [address], [place] [phone] * THYROID STIM HORMONE TSH (01/15/2025 11:42 AM CDT) TSH 0.752 0.358 - 3.74 uIU/ML 01/15/2025 12:25 PM CDT [facility] Comment: HIGH DOSES OF BIOTIN MAY INTERFERE WITH THIS TEST RESULT. CORRELATION TO CLINICAL HISTORY AND PRESENTATION RECOMMENDED. 01/15/2025 11:4 2 AM CDT us Fabian Nava MD LABORATORY Final Result [facility] [address] [place] [address], [place] [phone] * PHOSPHORUS, INORGANIC PHOSPHATE (01/15/2025 11:42 AM CDT) Pathologist [facility] PHOSPHORUS 2.7 2.5 - 4.9 MG/DL 01/15/2025 12:25 PM CDT [facility] 01/15/2025 11:4 2 AM CDT us Fabian Nava MD LABORATORY Final Result Performing Organization Address City/[facility] Co de Phone Number [facility] [address] [place] [address], [place] [phone] * (ABNORMAL) VITAMIN D, 25 [place] (01/15/2025 11:42 AM CDT) Pathologist [facility] VITAMIN D 25 HYDROXY S/P/B 22(L) 30 - 100 NG/ML 01/15/2025 12:21 PM CDT [facility] Comment: INTERPRETATION DEFICIENT <20 INSUFFICIENT 20-29 SUFFICIENT 30-100 01/15/2025 11:4 2 AM CDT us Fabian Nava MD LABORATORY Final Result Performing Organization Address City/[facility]/ZIP Co de Phone Number [facility] [address] [place] [address], [place] [phone] * FERRITIN (01/15/2025 11:42 AM CDT) FERRITIN 48.1 8.0 - 388.0 NG/ML 01/15/2025 12:15 PM CDT [facility] 01/15/2025 11:4 2 AM CDT Fabian Nava MD LABORATORY Final Result [facility] [address] [place] [address], [place] [phone] from Last 3 Months Insurance [employer] Care Teams Molder Sweep Relationship Specialty Start Date End Date Fabian Nava MD [address] [place] [address] [address] [place] [address] PCP - General 02/07/24 Jessica Larson MD Three [facility]. [address] [place] [address] [place] CARDIOVASCULAR DISEASE 07/15/18
--- OUTSIDE RECORDS SUMMARY | 2025-03-28 01:34 | XMS_ITS | Encounter Summary ---
Author Organization [facility] Address [facility] [place] [address] Care Team Providers Care Oyster Planter Name Role Phone Javon Rivera MD Primary Care Provider [phone] Jessica Larson MD Unavailable [phone] Javier Campuzano MD Primary Care Provider [phone] Encounter Details Date Type Department Care Team (Late Contact Info) Description 01/27/2022 KustomNote Message Enc 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 No / Unsure 01/26/2022 9:45 AM CDT documented as of this encounter Plan of Treatment Upcoming Encounters Date Type Department Care Team (Late Contact Info) Description 09/17/2025 2:30 PM CDT Office Visit [facility] [place], [address] [place] [address] Lorna Montes APRN Three [facility]. [address] [place], [place] [id number] documented as of this encounter Visit Diagnoses Not on filedocumented in this encounter Care Teams Oyster Planter Relationship Specialty Start Date End Date Javon Rivera MD [address] [place] [address] PCP - General 12/31/16 02/06/24 Javier Campuzano MD [address] [place] [address] [address] [place] [address] PCP - General 02/07/24 Jessica Larson MD Three [facility]. [address] [place], [place] [id number] [place] [employer] CARDIOVASCULAR DISEASE 07/15/18 documented as of this encounter
--- NOTE | 2025-03-28 10:46 | P.HPUP_ITS ---
History and Physical Update Update Date/Time: 03/28/25 10:46 History and Physical has been reviewed, including an updated exam of the patient. I reviewed her ultrasound findings with her and showed fibroids, possible large submucosal fibroid, which would also explain her symptoms in rebeca tion to the polyp. Risks, benefits, and alternatives have been discussed and questions answered. Patient agrees to proceed with procedure.
[2025-03-28 10:50] VITALS: BP 177/99; PULSE 69; RESP 18; TEMP 36.7; O2SAT 100
[2025-03-28] MEDS: ACETAMINOPHEN 500 MG TABLET 1000 MG PO (10:55)
[2025-03-28] MEDS: LACTATED RINGERS 1,000 ML 30 ML IV CONT (11:00)
--- NOTE | 2025-03-28 11:29 | WPDANESEPPF ---
Anes - Initial Pre Proc Eval Procedure: Operation Date: 03/28/25 12:30 Proposed Procedures p Hysteroscopy Dilation and Curettage with Removal Endometrial Polyp - Horacio Wen MD Date/Time: 03/28/25 11:29 Surgeon: Horacio Wen MD Pre Op Diagnosis: post menopausal bleeding, Endometrial Polyp Patient Data Age: 64 Gender: F Height: 1.57 m Weight: 87.75 kg Last Vital Signs Temp 98.1 F 03/28/25 10:50 Pulse 69 03/28/25 10:50 Resp 18 03/28/25 10:50 BP 177/99 H 03/28/25 10:50 Pulse Ox 100 03/28/25 10:50 O2 Del Method Room Air 03/28/25 10:50 Allergies Allergy/AdvReac Type Severity Reaction Status Date / Time No Known Allergies Allergy Verified 03/23/25 09:18 Home Medications ?Medication ?Instructions ?Recorded ?Confirmed ?Type diclofenac potassium 50 mg tablet 50 mg PO DAILY 10/30/22 03/23/25 History losartan 50 mg tablet 50 mg PO DAILY 10/30/22 03/23/25 History triamterene 75 1 tablet PO DAILY 10/30/22 03/23/25 History mg-hydrochlorothiazide 50 mg tablet multivitamin (Daily Multi-Vitamin 1 tablet PO DAILY 03/23/25 03/23/25 History tablet) Patient hx anesthesia problems: none Family hx anesthesia problems: none Results Review: All pre-operative results and documents have been reviewed as part of the pre-operative evaluation. [facility] Past Medical History Medical History History of stress test Hypertension Surgical History Surgical History H/O tubal ligation History of 3 sections History of pancreatectomy (~1992) Family History Family History Mother Hypertension Father Hypertension Social History Social History Smoking status: Never smoker Alcohol intake: never Substance use: never Substance use type: does not use Lack of Transportation: No Lack of Food: Never True Current Housing: I Have Housing Concerned About Future Housing: No Difficulty Paying Gas/Electric Bills: No Difficulty Paying for Meds: No Currently Unemployed: No Education: High School Diploma/GED Difficulty w/ Childcare or Family Care: No Anes - Eval Final PreProcedure Day of Procedure 03/28/25 11:29 Patient weight: obese Lungs: normal air movement Airway: Mallampati scale class II and special considerations (Missing several teeth on the lower aspect, each side. ) Neurological: alert and oriented Last oral intake: >/= 8 hours ASA classification: II Emergent: no Anesthetic plan: proceed Anesthesia type and monitoring: general GIVS and standard monitoring Results Review: All pre-operative results and documents have been reviewed as part of the pre-operative evaluation. 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 Informed Consent: The patient's anesthetic plan and its attendant risks and benefits were discussed with the patient/family/POA. Questions were solicited and answers provided to the satisfaction of the patient/family/POA.
[2025-03-28] MEDS: ceFAZolin 2 GM in SODIUM CHLORIDE 0.9% IV 50 ML 100 ML IVPB (11:45)
[2025-03-28] MEDS: LIDOCAINE 1% LOCAL INJ 10 ML VIAL INFILTRATE (11:59)
--- NOTE | 2025-03-28 12:01 | S_PTH ---
PATIENT: Sarah Calvillo LOC: [facility] U#:[id number] AGE/SX: 64/F ROOM: RE03/28/[address]: Horacio Wen MD : 1960 BED: DIS: 03/28/2025 SPEC #: [id number] RECD: 03/28/25 12:46 STATUS: KEILA REQ #: [id number] MARY CARMEN: 03/28/25 12:[address]: Horacio Wen DEPT: [facility] Surgical RECD BY: Del Paige ENTERED: 03/28/25 12:46 SP TYPE: Surgical OTHR DR: Michele Campuzano ([place])MD Tissues: A - Endometrial Curettings Procedures: Hematoxylin and Eosin Stain Gross and Microscopic Level 4
[2025-03-28 12:12] VITALS: BP 116/76; PULSE 75; RESP 14; O2SAT 97
--- NOTE | 2025-03-28 12:31 | W.PM.PROC2 ---
Procedure Note - Detailed Date of Procedure 04/11/25 Pre-op Diagnosis post menopausal bleeding, Endometrial Polyp Post-op Diagnosis Other (Postmenopausal bleeding) Procedure Performed Diagnostic hysteroscopy and dilation and curettage Surgeon Horacio Wen MD Anesthesia MAC and Local Indications Postmenopausal bleeding Findings Uterine cavity atrophic appearing, pressure effect from anterior intramural fibroid. Description of Procedure After informed consent was obtained patient was taken to the operating room and adequate IV sedation was administered. Attention was turned to the vagina. Speculum was inserted. Single-tooth tenaculum placed on the anterior lip of the cervix. Cervical block with 1% lidocaine administered. The uterus was sounded to 7 cm. The cervix was dilated to an 6 Son dilator. The hysteroscope was inserted into the cavity using hydrodilation. The findings were a normal uterine cavity, partially obliterated from pressure effect anteriorly consistent with intramural fibroid. Atrophic. The hysteroscope was removed. A curettage was performed with minimal tissue obtained. The hysteroscope was removed the single-tooth tenaculum was removed hemostasis was noted at the tenaculum site. Sponge count correct. The patient taken to recovery in stable condition. Estimated Blood Loss 5 Drains No Packing No Pathology Yes (scant endometrial curettings) Complications No immediate complications Condition Stable Disposition Same day [facility] Billing Surgery - Charge Forward: Surgery Billing
[2025-03-28 12:32] VITALS: BP 152/88; PULSE 57
[2025-03-28 13:00] VITALS: BP 152/91; PULSE 60; RESP 16
[2025-03-28 13:15] VITALS: BP 154/90; PULSE 62; RESP 16
== END 2025-03-28 13:20 | disposition home or self-care (01) ==
PROVIDERS: PCP Internal Medicine; Visit Provider Obstetrics & Gynecology
PROC: 0U5B8ZZ Destruction of Endometrium, Via Natural or Artificial Opening Endoscopic (ICD-10-PCS; CPT 58563; principal; 2025-03-28 12:30)
DX: N95.0 Postmenopausal bleeding (principal); N84.0 Polyp of corpus uteri
CPT/HCPCS: 58558; 88305; J0690; A9270; J2003; J2250; J2704; J3010; J7120